=== PATIENT | female | born 1940 | race Caucasian/White ===

== ENCOUNTER 2016-09-13 14:00 | Inpatient (IN) | payer MEDICARE, OTHER ==
[2016-09-13] MEDS: ENOXAPARIN SODIUM 30 MG/0.3 ML DISP.SYRIN SQ SCH (16:19)
--- NOTE | 2016-09-13 16:19 | History and Physical Report ---
History of Present Illnes - History of Present Illness Reason for Visit: gait disturbance History of Present Illness: 76-year-old white female who recently underwent a total knee replacement. Patient was admitted to this institution for further services. Patient was transfused 1 unit of packed RBCs surgery. Patient denies any other intraoperative or postoperative complications. Patient hypertension and diabetes mellitus has been stable. Rheumatoid arthritis. Has been causing her some discomfort but has been stable. 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 Alcohol: None Drugs: None Lives: With Family Domestic Violence: Negative - Health Maintenance Health Maintenance: Influenza Vaccine, Pneumococcal Vaccine, Other (Zostivax) Pneumonia Vaccine: Yes Resuscitation Status: Resusciation Status Resuscitation Status No Prolong Resuscitation,Full Code - Unable to Obtain History Unable to Obtain: No Review of Systems - Review of Systems Constitutional: negative: Fever, Chills, Sweats Eyes: negative: pain, vision change ENT: negative: Ear Pain, Ear Discharge, Nose Pain, Nose Discharge, Nose Congestion, Mouth Pain, Mouth Swelling, Throat Pain Respiratory: negative: Cough, Dry, Shortness of Breath, Hemoptysis, SOB with Excertion, Pleuritic Pain, Sputum, Wheezing Cardiovascular: negative: Chest Pain, Palpitations, Orthopnea, Paroxysmal Noc. Dyspnea, Edema, Light Headedness Gastrointestinal: negative: Nausea, Vomiting, Abdominal Pain, Diarrhea, Constipation, Melena, Hematochezia Genitourinary: negative: Dysuria, Frequency, Incontinence, Hematuria Musculoskeletal: Leg Pain. negative: Back Pain, Foot Pain Skin: negative: Rash, Lesions Neurological: negative: Weakness, Numbness, Incoordination, Change in Speech, Confusion, Seizures - Medications/Allergies Allergies/Adverse Reactions: Allergies Allergy/AdvReac Type Severity Reaction Status Date / Time levofloxacin [From Levaquin] Allergy Rash Verified 09/30/16 08:31 tramadol AdvReac Vomiting Verified 09/30/16 08:31 Current Inpatient Medications: Current Inpatient Medications Amlodipine Besylate (Norvasc) 5 mg PO DAILY [facility] Enoxaparin Sodium (Lovenox) 30 mg SQ QD [facility] Stop: 09/26/16 17:01 Folic Acid (Folvite) 1 mg PO DAILY [facility] Hydroxychloroquine Sulfate (Plaquenil) 200 mg PO BID [facility] Metformin HCl (Glucophage) 500 mg PO DAILY [facility] Metoprolol Tartrate (Lopressor) 25 mg PO BID [facility] Miscellaneous (Chem Sticks) 1 each CHEMQID [facility] Last Admin: 09/13/16 16:18 Dose: 1 each Pantoprazole Sodium (Protonix) 40 mg PO 0700 [facility] Prednisone (Deltasone) 5 mg PO HS [facility] Prednisone (Deltasone) 2.5 mg PO DAILY [facility] Exam - Exam General: Alert, Oriented to Person, Oriented to Place, Oriented to Time, Cooperative, Mild distress HEENT: Atraumatic, PERRLA, Nose Mucous membr. moist/[place], Dentition Normal, Hearing Grossly Normal Neck: Normal Range of Motion. No: Lymphadenopathy Carotids: WNL Thyroid: WNL Lungs: Clear to auscultation, Normal air movement, Speaks full Sentences. No: Respiratory Distress, Wheezes, Rales, Rhonchi, Stridor Cardiovascular: Regular rate, Normal S1, Normal S2, No murmurs. No: Gallops, Rubs, Murmur Abdomen: Normal bowel sounds, Soft, No tenderness, No hepatospenomegaly, No masses. No: Distended Integumentary: Normal, [place], Warm, Dry Extremities: No clubbing, No cyanosis, Other (some edemal tot he lrigh knee) Neurological: Normal speech, Strength Equal Bilat, Normal tone, Sensation intact , Cranial nerves 3-12 NL, Reflexes 2+. No: Normal gait Psych/Mental Status: Mental status NL, Mood NL, Appropriate Affect, Intact Judgment Assessment/Plan - Assessment/Plan (1) Gait disturbance Status: Acute Assessment: PT and OT consultation (2) Essential hypertension Status: Chronic Assessment: continue home meds and monitor (3) Rheumatoid arthritis Status: Chronic Assessment: continue home meds and monitor (4) Sleep apnea Status: Chronic Assessment: continue home Cpap and monitor (5) Diabetes type 2 with atherosclerosis of arteries of extremities Status: Acute (6) Type 2 diabetes mellitus Status: Chronic Qualifiers: Diabetes mellitus complication status: without complication Diabetes mellitus intermediate card tender insulin use: without mcc use Qualified Code(s): E11.9 - Type 2 diabetes mellitus without complications Assessment: will continue with home medications VTE Assessment - RISK FACTOR SCORE VTE RISK FACTOR SCORES: AGE OVER 60 YEARS, ANTICIPATED BED CONFINEMENT OR IMMOBILIZATION > 24 HOURS, ELECTIVE KNEE OR HIP ARTHROPLASTY - RISK VTE HIGH RISK: SCORE OF 3-4 (RISK PROXIMAL DVT 4-8%) PROPHYLAXIS NEEDED
[2016-09-13] MEDS ORDERED: HYDROcodone /APAP 5/325 1 EACH TABLET PO SCH (17:00)
[2016-09-13 19:35] VITALS: BMI 34.7
[2016-09-13] MEDS: predniSONE 10 MG TABLET PO SCH (20:09)
[2016-09-13] MEDS: METOPROLOL TARTRATE 50 MG TABLET PO SCH (20:09)
[2016-09-13] MEDS: HYDROcodone /APAP 5/325 1 EACH TABLET PO SCH (20:43)
[2016-09-13] MEDS: HYDROXYCHLOROQUINE SULFATE 200 MG TABLET PO SCH (21:00)
[2016-09-14] MEDS: HYDROcodone /APAP 5/325 1 EACH TABLET PO SCH ×6 (00:39→20:44)
[2016-09-14] MEDS: PANTOPRAZOLE SODIUM 40 MG TABLET PO SCH (06:11)
[2016-09-14] MEDS: predniSONE 1 MG TABLET PO SCH (08:40)
[2016-09-14] MEDS: FOLIC ACID 1 MG TABLET PO SCH (08:41)
[2016-09-14] MEDS: METOPROLOL TARTRATE 50 MG TABLET PO SCH ×2 (08:42→20:47)
[2016-09-14] MEDS: amLODIPine BESYLATE 5 MG TABLET PO SCH (08:43)
[2016-09-14] MEDS: HYDROXYCHLOROQUINE SULFATE 200 MG TABLET PO SCH ×2 (10:25→20:48)
[2016-09-14] MEDS: ENOXAPARIN SODIUM 30 MG/0.3 ML DISP.SYRIN SQ SCH (17:34)
[2016-09-14] MEDS: predniSONE 10 MG TABLET PO SCH (20:45)
[2016-09-15] MEDS: HYDROcodone /APAP 5/325 1 EACH TABLET PO SCH ×6 (03:25→21:34)
[2016-09-15] MEDS: PANTOPRAZOLE SODIUM 40 MG TABLET PO SCH (06:15)
[2016-09-15 07:32] LABS: BASOPHILS % 0.2 (0.0-1.5); LYMPHOCYTES # 0.8 # k/uL (0.6-4.0); MEAN CORPUSCULAR HEMOGLOBIN 26.2 pg (28.0-34.0); MONOCYTES # 0.5 # k/uL (0.0-0.9); MONOCYTES % 4.9 % (0.0-11.0); NEUTROPHILS # 7.6 # k/uL (1.4-7.7)
[2016-09-15 07:56] LABS: eGFR (African) > 60; eGFR (Non-African) > 60
[2016-09-15] MEDS: predniSONE 1 MG TABLET PO SCH (08:33)
[2016-09-15] MEDS: amLODIPine BESYLATE 5 MG TABLET PO SCH (08:34)
[2016-09-15] MEDS: FOLIC ACID 1 MG TABLET PO SCH (08:34)
[2016-09-15] MEDS: METOPROLOL TARTRATE 50 MG TABLET PO SCH ×2 (08:34→21:32)
[2016-09-15] MEDS: HYDROXYCHLOROQUINE SULFATE 200 MG TABLET PO SCH ×2 (08:35→21:33)
[2016-09-15] MEDS: ENOXAPARIN SODIUM 30 MG/0.3 ML DISP.SYRIN SQ SCH (17:16)
[2016-09-15] MEDS: predniSONE 10 MG TABLET PO SCH (21:30)
[2016-09-16] MEDS: HYDROcodone /APAP 5/325 1 EACH TABLET PO SCH ×6 (02:19→19:48)
[2016-09-16] MEDS: PANTOPRAZOLE SODIUM 40 MG TABLET PO SCH (06:17)
[2016-09-16] MEDS: predniSONE 1 MG TABLET PO SCH (08:55)
[2016-09-16] MEDS: amLODIPine BESYLATE 5 MG TABLET PO SCH (08:57)
[2016-09-16] MEDS: HYDROXYCHLOROQUINE SULFATE 200 MG TABLET PO SCH ×2 (08:57→19:48)
[2016-09-16] MEDS: FOLIC ACID 1 MG TABLET PO SCH (08:57)
[2016-09-16] MEDS: METOPROLOL TARTRATE 50 MG TABLET PO SCH ×2 (08:57→19:47)
[2016-09-16] MEDS: ENOXAPARIN SODIUM 30 MG/0.3 ML DISP.SYRIN SQ SCH (16:33)
[2016-09-16] MEDS: predniSONE 10 MG TABLET PO SCH (19:46)
[2016-09-17] MEDS: HYDROcodone /APAP 5/325 1 EACH TABLET PO SCH ×6 (00:13→20:02)
[2016-09-17] MEDS: PANTOPRAZOLE SODIUM 40 MG TABLET PO SCH (06:23)
[2016-09-17] MEDS: METOPROLOL TARTRATE 50 MG TABLET PO SCH ×2 (09:41→20:02)
[2016-09-17] MEDS: amLODIPine BESYLATE 5 MG TABLET PO SCH (09:43)
[2016-09-17] MEDS: HYDROXYCHLOROQUINE SULFATE 200 MG TABLET PO SCH ×2 (09:43→20:02)
[2016-09-17] MEDS: FOLIC ACID 1 MG TABLET PO SCH (09:43)
[2016-09-17] MEDS: predniSONE 1 MG TABLET PO SCH (09:48)
[2016-09-17] MEDS: ENOXAPARIN SODIUM 30 MG/0.3 ML DISP.SYRIN SQ SCH (17:22)
[2016-09-17] MEDS: predniSONE 10 MG TABLET PO SCH (20:01)
[2016-09-18] MEDS: HYDROcodone /APAP 5/325 1 EACH TABLET PO SCH ×6 (01:16→20:30)
[2016-09-18] MEDS: PANTOPRAZOLE SODIUM 40 MG TABLET PO SCH (05:55)
[2016-09-18] MEDS: predniSONE 1 MG TABLET PO SCH (08:35)
[2016-09-18] MEDS: FOLIC ACID 1 MG TABLET PO SCH (08:36)
[2016-09-18] MEDS: METOPROLOL TARTRATE 50 MG TABLET PO SCH ×2 (08:36→20:29)
[2016-09-18] MEDS: HYDROXYCHLOROQUINE SULFATE 200 MG TABLET PO SCH ×2 (08:37→20:30)
[2016-09-18] MEDS: amLODIPine BESYLATE 5 MG TABLET PO SCH (08:37)
[2016-09-18] MEDS: ENOXAPARIN SODIUM 30 MG/0.3 ML DISP.SYRIN SQ SCH (17:11)
[2016-09-18] MEDS: predniSONE 10 MG TABLET PO SCH (20:29)
[2016-09-19] MEDS: HYDROcodone /APAP 5/325 1 EACH TABLET PO SCH ×6 (00:05→20:50)
[2016-09-19] MEDS: PANTOPRAZOLE SODIUM 40 MG TABLET PO SCH (05:16)
[2016-09-19] MEDS: predniSONE 1 MG TABLET PO SCH (08:40)
[2016-09-19] MEDS: METOPROLOL TARTRATE 50 MG TABLET PO SCH ×2 (08:41→20:49)
[2016-09-19] MEDS: FOLIC ACID 1 MG TABLET PO SCH (08:41)
[2016-09-19] MEDS: HYDROXYCHLOROQUINE SULFATE 200 MG TABLET PO SCH ×2 (08:44→20:50)
[2016-09-19] MEDS: amLODIPine BESYLATE 5 MG TABLET PO SCH (08:44)
[2016-09-19] MEDS: ENOXAPARIN SODIUM 30 MG/0.3 ML DISP.SYRIN SQ SCH (16:49)
[2016-09-19] MEDS: predniSONE 10 MG TABLET PO SCH (20:49)
[2016-09-20] MEDS: HYDROcodone /APAP 5/325 1 EACH TABLET PO SCH ×6 (01:01→20:44)
[2016-09-20] MEDS: PANTOPRAZOLE SODIUM 40 MG TABLET PO SCH (05:22)
[2016-09-20] MEDS: amLODIPine BESYLATE 5 MG TABLET PO SCH (07:51)
[2016-09-20] MEDS: FOLIC ACID 1 MG TABLET PO SCH (07:51)
[2016-09-20] MEDS: HYDROXYCHLOROQUINE SULFATE 200 MG TABLET PO SCH ×2 (07:51→22:44)
[2016-09-20] MEDS: METOPROLOL TARTRATE 50 MG TABLET PO SCH ×2 (07:51→20:43)
[2016-09-20] MEDS: predniSONE 1 MG TABLET PO SCH (07:51)
[2016-09-20] MEDS: ENOXAPARIN SODIUM 30 MG/0.3 ML DISP.SYRIN SQ SCH (16:45)
--- NOTE | 2016-09-20 20:31 | Inpatient Progress Note ---
Subjective - Required Recertification Statement I anticipate X number of days because-include discharge plan: 7 days - Review of Systems Events since last encounter: Patient has developed some right hip pain over the last 2 days. Pain with movement, feels muscular in nature. If she sits still pain is better. Knee seems to be doing well at this time. BM have been OK. General: Appetite. Denies: Chills Objective - Exam Vitals and I&O: Vital Signs Temp 98.5 F 09/20/16 09:00 Pulse 100 H 09/20/16 09:00 Resp 20 09/20/16 09:00 BP 149/74 09/20/16 09:00 Pulse Ox 97 09/20/16 09:00 Intake & Output 09/19/16 09/20/16 09/20/16 23:59 11:59 23:59 Intake Total 440 360 480 Balance 440 360 480 Intake: Oral 440 360 480 Other: Voiding Method Toilet Toilet # Voids 1 # Bowel Movements 0 General: Alert, Oriented to Person, Oriented to Place, Oriented to Time, Cooperative Lungs: Clear to auscultation, Normal air movement, Speaks full Sentences. No: Wheezes, Rales, Rhonchi Cardiovascular: Regular rate, Normal S1, Normal S2 Abdomen: Normal bowel sounds, Soft, No tenderness, No hepatospenomegaly, No masses Extremities: Other (tenderness to palpation over the right lateral chest area) Skin: Normal, [place], Warm Neurological: Normal gait, Normal speech, Strength Equal Bilat Psych/Mental Status: Mental status NL, Mood NL, Intact Judgment - Results Results: Laboratory Results WBC 9.30 K/ul (4.00-12.00) 09/15/16 06:00 RBC 3.21 M/ul (3.90-5.20) L 09/15/16 06:00 Hgb 8.4 g/dL (12.0-16.0) L 09/15/16 06:00 Hct 28.1 % (34.5-46.5) L 09/15/16 06:00 MCV 87.6 fl (80.0-100.0) 09/15/16 06:00 MCH 26.2 pg (28.0-34.0) L 09/15/16 06:00 MCHC 29.9 g/dL (30.0-36.0) L 09/15/16 06:00 RDW 14.2 % (11.3-14.3) 09/15/16 06:00 Plt Count 208 K/mm3 (130-400) 09/15/16 06:00 Neut % (Auto) 81.8 % (39.0-79.0) H 09/15/16 06:00 Lymph % (Auto) 8.6 % (16.0-50.0) L 09/15/16 06:00 [place] % (Auto) 4.9 % (0.0-11.0) 09/15/16 06:00 Eos % (Auto) 2.0 % (0.0-6.8) 09/15/16 06:00 Baso % (Auto) 0.2 (0.0-1.5) 09/15/16 06:00 Neut # 7.6 # k/uL (1.4-7.7) 09/15/16 06:00 Lymph # 0.8 # k/uL (0.6-4.0) 09/15/16 06:00 [place] # 0.5 # k/uL (0.0-0.9) 09/15/16 06:00 Eos # 0.2 # k/uL (0.0-0.6) 09/15/16 06:00 Baso # 0.0 # k/uL (0.0-0.5) 09/15/16 06:00 Reactive Lymphs % 2.6 % (0.0-5.0) 09/15/16 06:00 Reactive Lymphs # 0.2 # k/uL (0.0-0.8) 09/15/16 06:00 Sodium 135 mmol/L (136-145) L 09/15/16 06:50 Potassium 4.7 mmol/L (3.5-5.0) 09/15/16 06:50 Chloride 101 mmol/L (98-110) 09/15/16 06:50 Carbon Dioxide 33 mmol/L (20-32) H 09/15/16 06:50 BUN 30 mg/dL (10-26) H 09/15/16 06:50 Creatinine 0.8 mg/dL (0.4-1.5) 09/15/16 06:50 Estimated Creat Clear 106 09/15/16 06:50 Est GFR ( Amer) > 60 (60-) 09/15/16 06:50 Est GFR (Non-Af Amer) > 60 (60-) 09/15/16 06:50 Glucose 148 mg/dL (70-99) H 09/15/16 06:50 Calcium 8.9 mg/dL (8.5-10.5) 09/15/16 06:50 Total Bilirubin 0.5 mg/dL (0.2-1.2) 09/15/16 06:50 AST 13 U/L (0-41) 09/15/16 06:50 ALT 9 U/L (0-45) 09/15/16 06:50 Alkaline Phosphatase 73 U/L (46-116) 09/15/16 06:50 Total Protein 5.4 g/dL (6.0-8.5) L 09/15/16 06:50 Albumin 3.3 g/dL (3.0-5.5) 09/15/16 06:50 Assessment/Plan - Assessment/Plan (1) Gait disturbance Status: Acute Current Visit: Yes Assessment: Was doing better until last two days. Will try heat to the area. (2) Essential hypertension Status: Chronic Current Visit: No Assessment: stable (3) Rheumatoid arthritis Status: Chronic Current Visit: Yes Assessment: stable, may be getting aggravated due to ambulation with knee. Patient has been off her meds per ortho request. (4) Sleep apnea Status: Chronic Current Visit: No Assessment: stable
--- NOTE | 2016-09-20 20:36 | Inpatient Progress Note ---
Subjective - Required Recertification Statement I anticipate X number of days because-include discharge plan: 2 weeks - Review of Systems Events since last encounter: Patient has been doing well and voices no complaints at this time. BM good. General: Other Pulmonary: Denies: Dyspnea, Cough Cardiovascular: Denies: Chest Pain Gastrointestinal: Denies: Nausea, Vomiting, Abdominal Pain, Constipation Objective - Exam Vitals and I&O: Vital Signs Temp 98.5 F 09/20/16 09:00 Pulse 100 H 09/20/16 09:00 Resp 20 09/20/16 09:00 BP 149/74 09/20/16 09:00 Pulse Ox 97 09/20/16 09:00 Intake & Output 09/19/16 09/20/16 09/20/16 23:59 11:59 23:59 Intake Total 440 360 480 Balance 440 360 480 Intake: Oral 440 360 480 Other: Voiding Method Toilet Toilet # Voids 1 # Bowel Movements 0 General: Alert, Oriented to Person, Oriented to Place, Oriented to Time, Cooperative Lungs: Clear to auscultation, Normal air movement, Speaks full Sentences. No: Wheezes, Rales, Rhonchi Cardiovascular: Regular rate, Normal S1, Normal S2, No murmurs Abdomen: Normal bowel sounds, Soft, No tenderness Extremities: No clubbing, No cyanosis, No edema, Other (right knee looks good.) Skin: Normal, [place], Warm, Dry Psych/Mental Status: Mental status NL, Mood NL, Appropriate Affect - Results Results: Laboratory Results WBC 9.30 K/ul (4.00-12.00) 09/15/16 06:00 RBC 3.21 M/ul (3.90-5.20) L 09/15/16 06:00 Hgb 8.4 g/dL (12.0-16.0) L 09/15/16 06:00 Hct 28.1 % (34.5-46.5) L 09/15/16 06:00 MCV 87.6 fl (80.0-100.0) 09/15/16 06:00 MCH 26.2 pg (28.0-34.0) L 09/15/16 06:00 MCHC 29.9 g/dL (30.0-36.0) L 09/15/16 06:00 RDW 14.2 % (11.3-14.3) 09/15/16 06:00 Plt Count 208 K/mm3 (130-400) 09/15/16 06:00 Neut % (Auto) 81.8 % (39.0-79.0) H 09/15/16 06:00 Lymph % (Auto) 8.6 % (16.0-50.0) L 09/15/16 06:00 [place] % (Auto) 4.9 % (0.0-11.0) 09/15/16 06:00 Eos % (Auto) 2.0 % (0.0-6.8) 09/15/16 06:00 Baso % (Auto) 0.2 (0.0-1.5) 09/15/16 06:00 Neut # 7.6 # k/uL (1.4-7.7) 09/15/16 06:00 Lymph # 0.8 # k/uL (0.6-4.0) 09/15/16 06:00 [place] # 0.5 # k/uL (0.0-0.9) 09/15/16 06:00 Eos # 0.2 # k/uL (0.0-0.6) 09/15/16 06:00 Baso # 0.0 # k/uL (0.0-0.5) 09/15/16 06:00 Reactive Lymphs % 2.6 % (0.0-5.0) 09/15/16 06:00 Reactive Lymphs # 0.2 # k/uL (0.0-0.8) 09/15/16 06:00 Sodium 135 mmol/L (136-145) L 09/15/16 06:50 Potassium 4.7 mmol/L (3.5-5.0) 09/15/16 06:50 Chloride 101 mmol/L (98-110) 09/15/16 06:50 Carbon Dioxide 33 mmol/L (20-32) H 09/15/16 06:50 BUN 30 mg/dL (10-26) H 09/15/16 06:50 Creatinine 0.8 mg/dL (0.4-1.5) 09/15/16 06:50 Estimated Creat Clear 106 09/15/16 06:50 Est GFR ( Amer) > 60 (60-) 09/15/16 06:50 Est GFR (Non-Af Amer) > 60 (60-) 09/15/16 06:50 Glucose 148 mg/dL (70-99) H 09/15/16 06:50 Calcium 8.9 mg/dL (8.5-10.5) 09/15/16 06:50 Total Bilirubin 0.5 mg/dL (0.2-1.2) 09/15/16 06:50 AST 13 U/L (0-41) 09/15/16 06:50 ALT 9 U/L (0-45) 09/15/16 06:50 Alkaline Phosphatase 73 U/L (46-116) 09/15/16 06:50 Total Protein 5.4 g/dL (6.0-8.5) L 09/15/16 06:50 Albumin 3.3 g/dL (3.0-5.5) 09/15/16 06:50 Assessment/Plan - Assessment/Plan (1) Gait disturbance Status: Acute Current Visit: Yes (2) Essential hypertension Status: Chronic Current Visit: No (3) Rheumatoid arthritis Status: Chronic Current Visit: Yes (4) Sleep apnea Status: Chronic Current Visit: No
[2016-09-20] MEDS: predniSONE 10 MG TABLET PO SCH (20:43)
[2016-09-21] MEDS: HYDROcodone /APAP 5/325 1 EACH TABLET PO SCH ×6 (00:55→21:00)
[2016-09-21] MEDS: PANTOPRAZOLE SODIUM 40 MG TABLET PO SCH (05:35)
[2016-09-21] MEDS: predniSONE 1 MG TABLET PO SCH (08:21)
[2016-09-21] MEDS: HYDROXYCHLOROQUINE SULFATE 200 MG TABLET PO SCH ×2 (08:22→21:00)
[2016-09-21] MEDS: METOPROLOL TARTRATE 50 MG TABLET PO SCH ×2 (08:22→21:32)
[2016-09-21] MEDS: FOLIC ACID 1 MG TABLET PO SCH (08:22)
[2016-09-21] MEDS: amLODIPine BESYLATE 5 MG TABLET PO SCH (08:22)
[2016-09-21] MEDS: ENOXAPARIN SODIUM 30 MG/0.3 ML DISP.SYRIN SQ SCH (16:56)
[2016-09-21] MEDS: predniSONE 10 MG TABLET PO SCH (21:00)
[2016-09-22] MEDS: HYDROcodone /APAP 5/325 1 EACH TABLET PO SCH ×6 (00:59→21:04)
[2016-09-22] MEDS: PANTOPRAZOLE SODIUM 40 MG TABLET PO SCH (05:43)
[2016-09-22] MEDS: amLODIPine BESYLATE 5 MG TABLET PO SCH (10:23)
[2016-09-22] MEDS: METOPROLOL TARTRATE 50 MG TABLET PO SCH ×2 (10:24→21:03)
[2016-09-22] MEDS: FOLIC ACID 1 MG TABLET PO SCH (10:25)
[2016-09-22] MEDS: predniSONE 1 MG TABLET PO SCH (10:38)
[2016-09-22] MEDS: HYDROXYCHLOROQUINE SULFATE 200 MG TABLET PO SCH ×2 (12:59→21:04)
[2016-09-22] MEDS: ENOXAPARIN SODIUM 30 MG/0.3 ML DISP.SYRIN SQ SCH (16:38)
[2016-09-22] MEDS: predniSONE 10 MG TABLET PO SCH (21:02)
[2016-09-23] MEDS: HYDROcodone /APAP 5/325 1 EACH TABLET PO SCH ×6 (01:19→21:05)
[2016-09-23] MEDS: PANTOPRAZOLE SODIUM 40 MG TABLET PO SCH (06:22)
[2016-09-23] MEDS: predniSONE 1 MG TABLET PO SCH (10:06)
[2016-09-23] MEDS: METOPROLOL TARTRATE 50 MG TABLET PO SCH ×2 (10:07→21:06)
[2016-09-23] MEDS: FOLIC ACID 1 MG TABLET PO SCH (10:07)
[2016-09-23] MEDS: amLODIPine BESYLATE 5 MG TABLET PO SCH (10:08)
[2016-09-23] MEDS: HYDROXYCHLOROQUINE SULFATE 200 MG TABLET PO SCH ×2 (11:09→21:06)
[2016-09-23] MEDS: ENOXAPARIN SODIUM 30 MG/0.3 ML DISP.SYRIN SQ SCH (16:30)
[2016-09-23] MEDS: predniSONE 10 MG TABLET PO SCH (21:06)
[2016-09-24] MEDS: HYDROcodone /APAP 5/325 1 EACH TABLET PO SCH ×6 (01:11→20:48)
[2016-09-24] MEDS: PANTOPRAZOLE SODIUM 40 MG TABLET PO SCH (05:26)
[2016-09-24] MEDS: predniSONE 1 MG TABLET PO SCH (09:37)
[2016-09-24] MEDS: FOLIC ACID 1 MG TABLET PO SCH (09:37)
[2016-09-24] MEDS: METOPROLOL TARTRATE 50 MG TABLET PO SCH ×2 (09:38→20:47)
[2016-09-24] MEDS: HYDROXYCHLOROQUINE SULFATE 200 MG TABLET PO SCH ×2 (09:39→20:46)
[2016-09-24] MEDS: amLODIPine BESYLATE 5 MG TABLET PO SCH (09:39)
[2016-09-24] MEDS: ONDANSETRON HCL 4 MG TAB.RAPDIS PO PRN (13:02)
[2016-09-24] MEDS: ENOXAPARIN SODIUM 30 MG/0.3 ML DISP.SYRIN SQ SCH (17:40)
[2016-09-24] MEDS: predniSONE 10 MG TABLET PO SCH (20:48)
[2016-09-25] MEDS: HYDROcodone /APAP 5/325 1 EACH TABLET PO SCH ×6 (01:00→21:45)
[2016-09-25] MEDS: PANTOPRAZOLE SODIUM 40 MG TABLET PO SCH (05:51)
[2016-09-25] MEDS: ONDANSETRON HCL 4 MG TAB.RAPDIS PO PRN ×2 (08:45→14:13)
[2016-09-25] MEDS: predniSONE 1 MG TABLET PO SCH (09:16)
[2016-09-25] MEDS: FOLIC ACID 1 MG TABLET PO SCH (09:17)
[2016-09-25] MEDS: METOPROLOL TARTRATE 50 MG TABLET PO SCH ×2 (09:17→21:41)
[2016-09-25] MEDS: HYDROXYCHLOROQUINE SULFATE 200 MG TABLET PO SCH ×2 (09:18→21:40)
[2016-09-25] MEDS: amLODIPine BESYLATE 5 MG TABLET PO SCH (09:18)
[2016-09-25] MEDS: ENOXAPARIN SODIUM 30 MG/0.3 ML DISP.SYRIN SQ SCH (17:20)
[2016-09-25] MEDS: predniSONE 10 MG TABLET PO SCH (21:40)
[2016-09-26] MEDS: HYDROcodone /APAP 5/325 1 EACH TABLET PO SCH ×3 (01:05→09:15)
[2016-09-26] MEDS: PANTOPRAZOLE SODIUM 40 MG TABLET PO SCH (05:27)
[2016-09-26] MEDS: predniSONE 1 MG TABLET PO SCH ×2 (09:11→09:12)
[2016-09-26] MEDS: FOLIC ACID 1 MG TABLET PO SCH (09:12)
[2016-09-26] MEDS: amLODIPine BESYLATE 5 MG TABLET PO SCH (09:13)
[2016-09-26] MEDS: METOPROLOL TARTRATE 50 MG TABLET PO SCH ×2 (09:13→20:02)
[2016-09-26] MEDS: HYDROXYCHLOROQUINE SULFATE 200 MG TABLET PO SCH ×2 (09:15→20:01)
[2016-09-26] MEDS: HYDROcodone /APAP 5/325 1 EACH TABLET PO PRN ×3 (12:47→23:41)
[2016-09-26] MEDS: ENOXAPARIN SODIUM 30 MG/0.3 ML DISP.SYRIN SQ SCH (17:52)
[2016-09-26] MEDS: predniSONE 10 MG TABLET PO SCH (20:02)
[2016-09-27] MEDS: HYDROcodone /APAP 5/325 1 EACH TABLET PO PRN ×3 (05:20→15:28)
[2016-09-27] MEDS: PANTOPRAZOLE SODIUM 40 MG TABLET PO SCH (05:20)
[2016-09-27] MEDS: predniSONE 1 MG TABLET PO SCH (08:25)
[2016-09-27] MEDS: METOPROLOL TARTRATE 50 MG TABLET PO SCH ×2 (08:26→20:21)
[2016-09-27] MEDS: FOLIC ACID 1 MG TABLET PO SCH (08:26)
[2016-09-27] MEDS: HYDROXYCHLOROQUINE SULFATE 200 MG TABLET PO SCH ×2 (08:27→20:22)
[2016-09-27] MEDS: amLODIPine BESYLATE 5 MG TABLET PO SCH (08:27)
[2016-09-27] MEDS: predniSONE 10 MG TABLET PO SCH (20:21)
[2016-09-28] MEDS: PANTOPRAZOLE SODIUM 40 MG TABLET PO SCH (05:41)
[2016-09-28] MEDS: predniSONE 1 MG TABLET PO SCH (08:54)
[2016-09-28] MEDS: FOLIC ACID 1 MG TABLET PO SCH (08:57)
[2016-09-28] MEDS: METOPROLOL TARTRATE 50 MG TABLET PO SCH ×2 (08:58→20:38)
[2016-09-28] MEDS: amLODIPine BESYLATE 5 MG TABLET PO SCH (09:00)
[2016-09-28] MEDS: HYDROXYCHLOROQUINE SULFATE 200 MG TABLET PO SCH ×2 (09:00→20:39)
[2016-09-28] MEDS: HYDROcodone /APAP 5/325 1 EACH TABLET PO PRN ×5 (09:01→22:59)
[2016-09-28] MEDS: predniSONE 10 MG TABLET PO SCH (20:37)
[2016-09-29] MEDS: PANTOPRAZOLE SODIUM 40 MG TABLET PO SCH (05:32)
[2016-09-29] MEDS: HYDROcodone /APAP 5/325 1 EACH TABLET PO PRN ×2 (05:35→11:48)
[2016-09-29] MEDS: METOPROLOL TARTRATE 50 MG TABLET PO SCH (09:00)
[2016-09-29] MEDS: HYDROXYCHLOROQUINE SULFATE 200 MG TABLET PO SCH (09:00)
[2016-09-29] MEDS: amLODIPine BESYLATE 5 MG TABLET PO SCH (09:00)
[2016-09-29] MEDS: FOLIC ACID 1 MG TABLET PO SCH (09:01)
[2016-09-29] MEDS: predniSONE 1 MG TABLET PO SCH (09:03)
--- NOTE | 2016-09-29 09:24 | Discharge Summary ---
Discharge Summary - Discharge Sumary History of Present Illness: 76-year-old white female who recently underwent a total knee replacement. Patient was admitted to this institution for further services. Patient was transfused 1 unit of packed RBCs surgery. Patient denies any other intraoperative or postoperative complications. Patient hypertension and diabetes mellitus has been stable. Rheumatoid arthritis. Has been causing her some discomfort but has been stable. Condition at Discharge: Stable Home Medications: Ambulatory Orders Medication Instructions Recorded Cyanocobalamin [Vitamin B-12] 1,000 mcg SUBCUT NOW 09/30/16 Metformin HCl [Glucophage] 09/30/16 Metoprolol Succinate [Toprol XL] 25 mg PO BID 09/30/16 Omeprazole 09/30/16 Prednisone [Deltasone] 2.5 mg PO AM 09/30/16 Prednisone [Deltasone] 5 mg PO HS 09/30/16 amLODIPine BESYLATE [Norvasc] 5 mg PO 0900 09/30/16 Ferrous Sulfate [Feosol] 325 mg PO [id number] #60 tablet. 10/05/16 Consultations this Visit: None Procedures this Visit: None Allergies/Adverse Reactions: Allergies Allergy/AdvReac Type Severity Reaction Status Date / Time levofloxacin [From Levaquin] Allergy Rash Verified 09/30/16 08:31 tramadol AdvReac Vomiting Verified 09/30/16 08:31 Discharge Summary: Patient was started on physical and occupational therapy. Patient did participate well with the therapy programs. Patient ambulation and transferring abilities did improve during her hospital stay. Patient was also started on passive range of motion which she tolerated well. Patient continued to have some some pain that required hydrocodone to manage. Patient's rheumatoid arthritis remained stable during the hospital stay. Patient's hypertension remained stable on home medications. Patient was eating well. Patient did not have any constipation problems. At the time of discharge was felt that patient could be managed at home with home health therapy. Patient was discharged in stable condition. - Final Diagnosis (1) Gait disturbance Problems: Patient participated will in the pt and OT. Patient's ability to ambulate and transfer improved. ROM of the knee improved with passive ROM. Patient did continue to have some pain with ambulation. (2) Essential hypertension Problems: Stable on home meds. (3) Rheumatoid arthritis Problems: stable. will stay off chloraquine for a short period of time of time. (4) Sleep apnea Problems: stable on C-pap
[2016-09-29 15:48] VITALS: BP 126/48
== END 2016-09-29 12:20 | DRG 93 ==
LOC: SOUTH 14:00
PROVIDERS: ADMIT Family Medicine; ATTEND Family Medicine
DX: R26.89 Other abnormalities of gait and mobility (principal); M06.9 Rheumatoid arthritis, unspecified; I10 Essential (primary) hypertension; J44.9 Chronic obstructive pulmonary disease, unspecified; G47.30 Sleep apnea, unspecified
CPT/HCPCS: 36415; 80053; 85025; J1650; A9270; A9270-GY; J7512

== ENCOUNTER 2016-09-30 08:21 | Inpatient (IN) | payer MEDICARE, OTHER ==
--- NOTE | 2016-09-30 08:27 | ED Physician Documentation ---
Lower Extremity Problem - HISTORIAN Historian: patient - HPI Chief Complaint: Lower Extremity Problem Location of Injury: L hip Onset: hours Timing: still present, persistent since (last noc) Recent Injury: No Where: home Severity: severe Quality: pain, tenderness Exacerbated By: walking, movement Relieved By: rest Associated Symptoms: denies: rapid heart rate Further Comments: yes (76yo white female who underwent a left TKR about 3 weeks ago. Was in SNF for rehab and was discharged home yesterday. Patient did well until early this AM when she developed some some severe left hip pain that started while she was in bed. Has taken several pain medications without improvement. Pain seems to be worse with any movement. Patient denies nay fever or chills. Denies any recent injury. Has had some arthritis in the hip previously. Has a history of RA. Patient is unable to stand or ambulateat this time.) - ROS CONST: no problems. denies: recent illness, fever MS/SKIN/LYMPH: joint pain (left knee), leg swelling (minimal). denies: none, calf pain CVS/RESP: none GI/: none NERUO/PSYCH: denies: headache - PAST HX Past History: other (OA, RA, diabetes type 2, HTN, sleep apnea) PE Risk Factors: leg swelling Surgeries/Procedures: knee surgery (left), cholecystectomy, hysterectomy, other (shoulder replacement, sinus surgery, ) Allergies/Adverse Reactions: Allergies Allergy/AdvReac Type Severity Reaction Status Date / Time levofloxacin [From Levaquin] Allergy Rash Verified 09/30/16 08:31 tramadol AdvReac Vomiting Verified 09/30/16 08:31 Home Medications: Ambulatory Orders Medication Instructions Recorded Cyanocobalamin [Vitamin B-12] 1,000 mcg SUBCUT NOW 09/30/16 Folic Acid [Folic Acid] 09/30/16 Metformin HCl [Glucophage] 09/30/16 Metoprolol Succinate [Toprol Xl] 25 mg PO BID 09/30/16 Omeprazole [Omeprazole] 09/30/16 Prednisone [Deltasone] 2.5 mg PO AM 09/30/16 Prednisone [Deltasone] 5 mg PO HS 09/30/16 amLODIPine BESYLATE [Norvasc] 5 mg PO 0900 09/30/16 - SOCIAL HX Smoking History: non-smoker Alcohol Use: none Drug Use: none - FAMILY HX Family History: no significant history - VITAL SIGNS Vital Signs: Vital Signs Temp Pulse Resp BP Pulse Ox 98.3 F 84 18 136/78 99 09/30/16 10:21 09/30/16 10:21 09/30/16 10:21 09/30/16 10:21 09/30/16 10:21 - REVIEWED ASSESSMENTS Nursing Assessment Reviewed: Yes Vitals Reviewed: Yes Progress - Progress Progress: 09:16 Pain improved to 5/10, still hurts with movement ED Results Lab/Radiology - Lab Results Lab Results: Lab Results 09/30/16 09/30/16 08:45 08:45 WBC 12.60 K/ul H K/ul (4.00-12.00) RBC 3.62 M/ul L M/ul (3.90-5.20) Hgb 8.8 g/dL L g/dL (12.0-16.0) Hct 30.9 % L % (34.5-46.5) MCV 85.6 fl fl (80.0-100.0) MCH 24.4 pg L pg (28.0-34.0) MCHC 28.6 g/dL L g/dL (30.0-36.0) RDW 14.7 % H % (11.3-14.3) Plt Count 342 K/mm3 K/mm3 (130-400) Neut % (Auto) 84.1 % H % (39.0-79.0) Lymph % (Auto) 7.6 % L % (16.0-50.0) [place] % (Auto) 6.3 % % (0.0-11.0) Eos % (Auto) 0.6 % % (0.0-6.8) Baso % (Auto) 0.4 (0.0-1.5) Neut # 10.6 # k/uL H # k/uL (1.4-7.7) Lymph # 1.0 # k/uL # k/uL (0.6-4.0) [place] # 0.8 # k/uL # k/uL (0.0-0.9) Eos # 0.1 # k/uL # k/uL (0.0-0.6) Baso # 0.0 # k/uL # k/uL (0.0-0.5) Reactive Lymphs % 1.0 % % (0.0-5.0) Reactive Lymphs # 0.1 # k/uL # k/uL (0.0-0.8) Sodium 143 mmol/L mmol/L (136-145) Potassium 4.1 mmol/L mmol/L (3.5-5.0) Chloride 104 mmol/L mmol/L (98-110) Carbon Dioxide 28 mmol/L mmol/L (20-32) BUN 22 mg/dL mg/dL (10-26) Creatinine 1.1 mg/dL mg/dL (0.4-1.5) Estimated Creat Clear 72 Est GFR ( Amer) > 60 (60 - ) Est GFR (Non-Af Amer) > 60 (60 - ) Glucose 149 mg/dL H mg/dL (70-99) Uric Acid 6.4 mg/dL mg/dL (2.0-7.8) Calcium 8.8 mg/dL mg/dL (8.5-10.5) Total Bilirubin 0.5 mg/dL mg/dL (0.2-1.2) AST 27 U/L U/L (0-41) ALT 17 U/L U/L (0-45) Alkaline Phosphatase 101 U/L U/L (46-116) Total Protein 6.7 g/dL g/dL (6.0-8.5) Albumin 3.5 g/dL g/dL (3.0-5.5) - Orders Orders: ED Orders Category Date Time Status Place Saline Lock/IV Now Care 09/30/16 08:27 Active RT HIP 2VIEW COMPLETE [RAD] Routine Exams 09/30/16 Completed CBC/PLATELET/DIFF Routine Lab 09/30/16 08:45 Completed CMP Routine Lab 09/30/16 08:45 Completed URIC ACID Routine Lab 09/30/16 08:45 Completed Ketorolac Tromethamine [Toradol] Med 09/30/16 08:28 Discontinued 30 mg IVP NOW ONE fentaNYL CITRATE/PF [Duragesic] Med 09/30/16 09:16 Discontinued 50 mcg IVP NOW ONE Lower Extremity Problem - EXAM General Appearance: moderate distress Hips: right hip: non-tender, normal inspection, normal range of motion, no evidence of injury, left hip: deformity (none), limited range of motion, pain, soft tissue tenderness, N/A: ecchymosis (none), swelling (none) Legs: bilateral: non-tender, normal inspection, normal range of motion, no evidence of injury Knees: right: no evidence of injury, left: pain, soft tissue tenderness, swelling, N/A: deformity (none), ecchymosis (none) Foot: bilateral foot: non-tender, normal inspection, normal range of motion, no evidence of injury DTR - Lower Extremities: knee (R): 2+, knee (L): 1+, ankle (R): 2+, ankle (L): 2 + Neuro/Tendon: normal sensation, normal motor functions, responds to pain, no evidence tendon injury EENT: pharynx normal, no signs of dehydration RESPIRATORY: no resp distress. No: wheezes, rales, rhonchi CVS: reg rate & rhythm, heart sounds normal, equal pulses, no murmur, no gallop , PMI nml JOINT: No: nml ROM VASCULAR: no vascular compromise NEURO/PSYCH: mood/affect nml, cognition normal SKIN: warm/dry, normal color. No: cyanosis BACK: normal inspection, no CVA tenderness Discharge Clincal Impression: Hip pain, left Home Medications: Ambulatory Orders Cyanocobalamin [Vitamin B-12] 1,000 mcg SUBCUT NOW 09/30/16 Folic Acid [Folic Acid] 09/30/16 Metformin HCl [Glucophage] 09/30/16 Metoprolol Succinate [Toprol Xl] 25 mg PO BID 09/30/16 Omeprazole [Omeprazole] 09/30/16 Prednisone [Deltasone] 2.5 mg PO AM 09/30/16 Prednisone [Deltasone] 5 mg PO HS 09/30/16 amLODIPine BESYLATE [Norvasc] 5 mg PO 0900 09/30/16 Condition: Good Disposition: ADMITTED INPATIENT Decision to Admit: [id number] Date of Decison to Admit: 09/30/16 Decision Time: 11:07
[2016-09-30] MEDS ORDERED: KETOROLAC TROMETHAMINE 30 MG/1ML VIAL IVP ONE (08:28)
[2016-09-30 08:51] LABS: BASOPHILS % 0.4 (0.0-1.5); EOSINOPHILS % 0.6 % (0.0-6.8); MEAN CORPUSCULAR HEMOGLOBIN 24.4 pg (28.0-34.0); MONOCYTES # 0.8 # k/uL (0.0-0.9); MONOCYTES % 6.3 % (0.0-11.0); NEUTROPHILS # 10.6 # k/uL (1.4-7.7)
[2016-09-30 09:12] LABS: eGFR (African) > 60; eGFR (Non-African) > 60
[2016-09-30] MEDS ORDERED: fentaNYL CITRATE/PF 100 MCG/ 2ML AMP IVP ONE ×2 (09:16→10:12)
--- NOTE | 2016-09-30 09:46 | Diagnostic Imaging Report ---
[facility] [id number] [facility].[address] [id number] Report Submission Date: Sep 30, 2016 9:42:08 AM MANAGER STORY Patient Study Name: TORRES IRVIN Date: Sep 30, 2016 8:48:04 AM MANAGER STORY Modality Type: CR Gender: F Description: PELVIS : 44 Institution: [facility] Physician: BARBARA SNEED Left hip -two views CLINICAL HISTORY: Left hip pain. FINDINGS: Examination of the left hip in AP and frog-leg lateral views demonstrates degenerative changes with narrowing of the hip joint space and osteophyte formation. There is no evident fracture and no lytic or blastic lesion. IMPRESSION: Degenerative changes. No fracture. Electronically signed on Sep 30, 2016 9:42:08 AM MANAGER STORY by: Donnie NELSON
--- NOTE | 2016-09-30 10:27 | History and Physical Report ---
History of Present Illnes - History of Present Illness Reason for Visit: hip pain History of Present Illness: 76yo white female who underwent a left TKR about 3 weeks ago. Was in SNF for rehab and was discharged home yesterday. Patient did well until early this AM when she developed some some severe left hip pain that started while she was in bed. Has taken several pain medications without improvement. Pain seems to be worse with any movement. Patient denies nay fever or chills. Denies any recent injury. Has had some arthritis in the hip previously. Has a history of RA. Patient is unable to stand or ambulate at this time. 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 Alcohol: None Drugs: None Lives: With Family Domestic Violence: Negative - Health Maintenance Health Maintenance: Influenza Vaccine, Pneumococcal Vaccine, Other (Zostivax) Influenza Vaccine: Current for this Influenza Season Pneumonia Vaccine: Yes Resuscitation Status: Resusciation Status Resuscitation Status Full Code - Unable to Obtain History Unable to Obtain: No Review of Systems - Review of Systems Constitutional: negative: Fever, Chills, Weakness Eyes: negative: pain, vision change ENT: negative: Ear Pain, Ear Discharge, Nose Pain, Nose Discharge, Nose Congestion Respiratory: negative: Cough, Dry, Shortness of Breath, Hemoptysis, Wheezing Cardiovascular: negative: Chest Pain, Palpitations Gastrointestinal: Constipation (OK). negative: Vomiting, Abdominal Pain, Diarrhea, Melena, Hematochezia Genitourinary: negative: Dysuria, Frequency Musculoskeletal: Leg Pain. negative: Neck Pain, Shoulder Pain, Arm Pain, Back Pain Skin: negative: Rash, Lesions Neurological: negative: Weakness, Numbness - Medications/Allergies Allergies/Adverse Reactions: Allergies Allergy/AdvReac Type Severity Reaction Status Date / Time levofloxacin [From Levaquin] Allergy Rash Verified 09/30/16 08:31 tramadol AdvReac Vomiting Verified 09/30/16 08:31 Home Medications: Home Medications Cyanocobalamin [Vitamin B-12] 1,000 mcg SUBCUT NOW 09/30/16 Folic Acid [Folic Acid] 09/30/16 Metformin HCl [Glucophage] 09/30/16 Metoprolol Succinate [Toprol Xl] 25 mg PO BID 09/30/16 Omeprazole [Omeprazole] 09/30/16 Prednisone [Deltasone] 2.5 mg PO AM 09/30/16 Prednisone [Deltasone] 5 mg PO HS 09/30/16 amLODIPine BESYLATE [Norvasc] 5 mg PO 0900 09/30/16 Current Inpatient Medications: Current Inpatient Medications Amlodipine Besylate (Norvasc) 5 mg PO 0900 [facility] Enoxaparin Sodium (Lovenox) 30 mg SQ QD [facility] Stop: 10/13/16 11:01 Metformin HCl (Glucophage) 500 mg PO D [facility] Metoprolol Succinate (Toprol Xl) 25 mg PO BID [facility] Miscellaneous (Prednisone [Deltasone]) 2.5 mg PO AM [facility] Miscellaneous (Prednisone [Deltasone]) 5 mg PO HS [facility] Oxycodone/Acetaminophen (Percocet 5-325 Mg Tablet) 1 each PO Q4 PRN PRN Reason: Severe Pain Pantoprazole Sodium (Protonix) 40 mg PO 0700 [facility] Sodium Chloride (Normal Saline Flush) 3 ml IV BID [facility] Exam - Exam Vital Signs: Vital Signs (72 hours) 09/30/16 10:21 Temperature 98.3 F Pulse Rate [ 84 Pulse ox] Respiratory 18 Rate Blood Pressure 136/78 [Right Arm] O2 Sat by Pulse 99 Oximetry General: Alert, Oriented to Person, Oriented to Place, Oriented to Time, Cooperative, Moderate distress HEENT: Atraumatic, PERRLA, EOMI Neck: Normal Range of Motion. No: Stridor, Rigidity, Lymphadenopathy Carotids: WNL Thyroid: WNL Lungs: Clear to auscultation, Normal air movement, Speaks full Sentences. No: Respiratory Distress, Wheezes, Rales, Rhonchi Cardiovascular: Regular rate, Normal S1, Normal S2, No murmurs Abdomen: Normal bowel sounds, Soft, No tenderness, No hepatospenomegaly, No masses. No: Distended Integumentary: Normal, [place], Warm, Dry Extremities: No clubbing, No cyanosis, Other (some edema to the left lower extremity) Neurological: Normal speech, Strength Equal Bilat, Normal tone, Sensation intact , Cranial nerves 3-12 NL, Reflexes 2+. No: Normal gait Psych/Mental Status: Mental status NL, Mood NL, Appropriate Affect, Intact Judgment Assessment/Plan - Assessment/Plan (1) Hip pain, left Status: Acute Current Visit: Yes Assessment: Etiology unclear at this time. Pat does have evidence of OA in the hip area. Will start some PT and OT after being readmitted to SNF. Will start NSAID. Patient is taking steroid for RA. Has been off plaquinil for several weeks on advice of orthopedics. (2) Gait disturbance Status: Acute Current Visit: No Assessment: Will start PT and OT (3) Osteoarthritis Status: Acute Current Visit: No Assessment: as above (4) rheumatoid arthritis Status: Acute Current Visit: No Assessment: continue with home meds (5) Essential hypertension Status: Chronic Current Visit: No Assessment: continue with home meds VTE Assessment - RISK FACTOR SCORE VTE RISK FACTOR SCORES: AGE OVER 60 YEARS, ANTICIPATED BED CONFINEMENT OR IMMOBILIZATION > 24 HOURS
[2016-09-30 10:58] VITALS: BMI 33.6
[2016-09-30] MEDS: oxyCODONE/ACETAMINOPHEN 5/325 TABLET PO PRN ×2 (11:11→19:17)
[2016-09-30] MEDS: ENOXAPARIN SODIUM 30 MG/0.3 ML DISP.SYRIN SQ SCH (11:11)
[2016-09-30] MEDS: SALINE FLUSH 10 ML DISP.SYRIN IVF SCH (20:43)
[2016-09-30] MEDS: METOPROLOL SUCCINATE 50 MG TAB.ER.24H PO SCH (20:43)
[2016-09-30] MEDS: predniSONE 10 MG TABLET PO SCH (20:43)
[2016-10-01] MEDS: PANTOPRAZOLE SODIUM 40 MG TABLET PO SCH (06:12)
[2016-10-01] MEDS: predniSONE 1 MG TABLET PO SCH (09:36)
[2016-10-01] MEDS: amLODIPine BESYLATE 5 MG TABLET PO SCH (09:36)
[2016-10-01] MEDS: METOPROLOL SUCCINATE 50 MG TAB.ER.24H PO SCH ×2 (09:37→20:14)
[2016-10-01] MEDS: SALINE FLUSH 10 ML DISP.SYRIN IVF SCH ×2 (09:41→20:10)
[2016-10-01] MEDS: ENOXAPARIN SODIUM 30 MG/0.3 ML DISP.SYRIN SQ SCH (11:23)
[2016-10-01] MEDS: oxyCODONE/ACETAMINOPHEN 5/325 TABLET PO PRN ×3 (13:16→21:31)
[2016-10-01] MEDS: predniSONE 10 MG TABLET PO SCH (20:10)
[2016-10-02] MEDS: PANTOPRAZOLE SODIUM 40 MG TABLET PO SCH (06:23)
[2016-10-02] MEDS: oxyCODONE/ACETAMINOPHEN 5/325 TABLET PO PRN ×3 (06:23→20:40)
[2016-10-02 07:02] LABS: BASOPHILS % 0.3 (0.0-1.5); EOSINOPHILS % 1.3 % (0.0-6.8); MEAN CORPUSCULAR HEMOGLOBIN 24.8 pg (28.0-34.0); MONOCYTES # 0.5 # k/uL (0.0-0.9); MONOCYTES % 5.3 % (0.0-11.0); NEUTROPHILS # 8.2 # k/uL (1.4-7.7)
[2016-10-02 07:21] LABS: eGFR (African) > 60; eGFR (Non-African) > 60
[2016-10-02] MEDS: METOPROLOL SUCCINATE 50 MG TAB.ER.24H PO SCH ×2 (08:34→20:41)
[2016-10-02] MEDS: predniSONE 1 MG TABLET PO SCH (08:36)
[2016-10-02] MEDS: amLODIPine BESYLATE 5 MG TABLET PO SCH (08:36)
[2016-10-02] MEDS: SALINE FLUSH 10 ML DISP.SYRIN IVF SCH ×2 (08:38→21:22)
[2016-10-02] MEDS ORDERED: MAGNESIUM HYDROXIDE 400 MG/5 ML 30ML UDC PO ONE (10:15)
[2016-10-02] MEDS ORDERED: diphenhydrAMINE HCL 25 MG TABLET PO ONE (10:42)
[2016-10-02] MEDS ORDERED: ACETAMINOPHEN 500 MG TABLET PO ONE (10:42)
[2016-10-02] MEDS: ENOXAPARIN SODIUM 30 MG/0.3 ML DISP.SYRIN SQ SCH (11:27)
[2016-10-02] MEDS ORDERED: 0.9 % SODIUM CHLORIDE 250 ML IV ONE (14:08)
[2016-10-02] MEDS: predniSONE 10 MG TABLET PO SCH (20:41)
[2016-10-03] MEDS: oxyCODONE/ACETAMINOPHEN 5/325 TABLET PO PRN ×5 (01:44→20:38)
[2016-10-03] MEDS: PANTOPRAZOLE SODIUM 40 MG TABLET PO SCH (06:01)
[2016-10-03 07:56] LABS: eGFR (African) > 60; eGFR (Non-African) > 60
[2016-10-03] MEDS: METOPROLOL SUCCINATE 50 MG TAB.ER.24H PO SCH ×2 (08:23→20:36)
[2016-10-03] MEDS: amLODIPine BESYLATE 5 MG TABLET PO SCH (08:23)
[2016-10-03] MEDS: predniSONE 1 MG TABLET PO SCH (08:25)
[2016-10-03] MEDS: SALINE FLUSH 10 ML DISP.SYRIN IVF SCH ×2 (08:28→20:35)
[2016-10-03 09:38] LABS: BASOPHILS % 0.3 (0.0-1.5); EOSINOPHILS % 1.9 % (0.0-6.8); LYMPHOCYTES # 1.2 # k/uL (0.6-4.0); MEAN CORPUSCULAR HEMOGLOBIN 26.5 pg (28.0-34.0); MONOCYTES # 0.5 # k/uL (0.0-0.9)
[2016-10-03] MEDS: ENOXAPARIN SODIUM 30 MG/0.3 ML DISP.SYRIN SQ SCH (11:52)
[2016-10-03] MEDS ORDERED: FERROUS SULFATE 325 MG TABLET PO ONE ×2 (11:54→13:45)
[2016-10-03] MEDS: FERROUS SULFATE 325 MG TABLET PO SCH ×2 (11:55→18:14)
[2016-10-03] MEDS: predniSONE 10 MG TABLET PO SCH (20:35)
[2016-10-04] MEDS: PANTOPRAZOLE SODIUM 40 MG TABLET PO SCH (06:41)
[2016-10-04] MEDS: oxyCODONE/ACETAMINOPHEN 5/325 TABLET PO PRN ×5 (06:41→23:43)
[2016-10-04] MEDS ORDERED: FERROUS SULFATE 325 MG TABLET PO ONE (07:01)
[2016-10-04] MEDS: predniSONE 1 MG TABLET PO SCH (08:44)
[2016-10-04] MEDS: amLODIPine BESYLATE 5 MG TABLET PO SCH (08:45)
[2016-10-04] MEDS: METOPROLOL SUCCINATE 50 MG TAB.ER.24H PO SCH ×2 (08:46→20:13)
[2016-10-04] MEDS: FERROUS SULFATE 325 MG TABLET PO SCH ×2 (10:46→18:55)
[2016-10-04] MEDS: ENOXAPARIN SODIUM 30 MG/0.3 ML DISP.SYRIN SQ SCH (11:23)
[2016-10-04] MEDS ORDERED: ONDANSETRON HCL 4 MG TAB.RAPDIS PO PRN (11:36)
[2016-10-04] MEDS ORDERED: ONDANSETRON HCL 4 MG TAB.RAPDIS ONE (11:37)
[2016-10-04] MEDS: predniSONE 10 MG TABLET PO SCH (20:12)
[2016-10-05] MEDS ORDERED: FERROUS SULFATE 325 MG TABLET PO ONE (05:13)
[2016-10-05] MEDS: oxyCODONE/ACETAMINOPHEN 5/325 TABLET PO PRN (05:42)
[2016-10-05] MEDS: PANTOPRAZOLE SODIUM 40 MG TABLET PO SCH (05:42)
[2016-10-05 06:55] LABS: BASOPHILS % 0.5 (0.0-1.5); EOSINOPHILS % 1.8 % (0.0-6.8); LYMPHOCYTES # 1.4 # k/uL (0.6-4.0); MONOCYTES # 0.5 # k/uL (0.0-0.9); MONOCYTES % 6.6 % (0.0-11.0); NEUTROPHILS # 5.3 # k/uL (1.4-7.7)
[2016-10-05] MEDS: amLODIPine BESYLATE 5 MG TABLET PO SCH (08:24)
[2016-10-05] MEDS: predniSONE 1 MG TABLET PO SCH (08:24)
[2016-10-05] MEDS: METOPROLOL SUCCINATE 50 MG TAB.ER.24H PO SCH (08:26)
[2016-10-05 09:45] VITALS: BP 143/102
--- NOTE | 2016-10-05 21:50 | Discharge Summary ---
Discharge Summary - Discharge Sumary History of Present Illness: 76yo white female who underwent a left TKR about 3 weeks ago. Was in SNF for rehab and was discharged home yesterday. Patient did well until early this AM when she developed some some severe left hip pain that started while she was in bed. Has taken several pain medications without improvement. Pain seems to be worse with any movement. Patient denies nay fever or chills. Denies any recent injury. Has had some arthritis in the hip previously. Has a history of RA. Patient is unable to stand or ambulate at this time. Condition at Discharge: Stable Home Medications: Ambulatory Orders Medication Instructions Recorded Cyanocobalamin [Vitamin B-12] 1,000 mcg SUBCUT NOW 09/30/16 Metformin HCl [Glucophage] 09/30/16 Metoprolol Succinate [Toprol XL] 25 mg PO BID 09/30/16 Omeprazole 09/30/16 Prednisone [Deltasone] 2.5 mg PO AM 09/30/16 Prednisone [Deltasone] 5 mg PO HS 09/30/16 amLODIPine BESYLATE [Norvasc] 5 mg PO 0900 09/30/16 Ferrous Sulfate [Feosol] 325 mg PO [id number] #60 tablet. 10/05/16 Allergies/Adverse Reactions: Allergies Allergy/AdvReac Type Severity Reaction Status Date / Time levofloxacin [From Levaquin] Allergy Rash Verified 09/30/16 08:31 tramadol AdvReac Vomiting Verified 09/30/16 08:31 Discharge Summary: Patient's pain medications were changed to help control her severe pain that she was having. Patient was restarted on physical and occupational therapy. Within 24 hours. Patient did have some improvement in her left hip pain. Patient was able to start to ambulate with assistance. Patient was noted to be anemic. Patient hemoglobin dropped to 7.7. This was felt possibly be related to some of the patient's weakness. Patient was subsequently transfused 2 units of packed RBCs. Patient's ability to ambulate improved. Patient was subsequently discharged home in stable condition. - Final Diagnosis (1) Gait disturbance Problems: improved (2) Hip pain, left Problems: improved (3) Osteoarthritis Problems: stable (4) rheumatoid arthritis Problems: stabale (5) Essential hypertension Problems: stable on home meds
--- NOTE | 2016-10-05 21:55 | Inpatient Progress Note ---
Subjective - Required Recertification Statement I anticipate X number of days because-include discharge plan: 3 da - Review of Systems Events since last encounter: patient states that her right hip. Pain does seem to be improved at this time. Patient remained very weak with the ED physician debilitating. Patient states she is having some shortness of breath with exertion. Repeat hemoglobin and hematocrit showed her hemoglobin to drop down to 7.7. Patient denies any chest pain chest pressure TIA or CVA symptoms. Pulmonary: Denies: Dyspnea, Cough, Pleuritic Chest Pain Cardiovascular: Denies: Chest Pain, Palpitations Gastrointestinal: Denies: Nausea, Vomiting, Diarrhea, Melena, Hematochezia Neurological: Weakness Objective - Exam Vitals and I&O: Vital Signs Temp 98.2 F 10/05/16 09:00 Pulse 72 10/05/16 09:00 Resp 16 10/05/16 09:00 BP 143/102 10/05/16 09:00 Pulse Ox 100 10/04/16 21:00 Intake & Output 10/04/16 10/05/16 10/05/16 23:59 11:59 23:59 Intake Total 700 240 Balance 700 240 Intake: Oral 700 240 Other: Voiding Method Toilet Toilet # Voids 1 2 General: Alert, Oriented to Person, Oriented to Place, Oriented to Time, Cooperative Neck: Supple Lungs: Clear to auscultation, Normal air movement, Speaks full Sentences Cardiovascular: Regular rate, Normal S1, Normal S2, No murmurs Abdomen: Normal bowel sounds, Soft, No tenderness, No hepatospenomegaly, No masses - Results Results: Laboratory Results WBC 7.70 K/ul (4.00-12.00) 10/05/16 06:25 RBC 3.84 M/ul (3.90-5.20) L 10/05/16 06:25 Hgb 10.0 g/dL (12.0-16.0) L 10/05/16 06:25 Hct 33.5 % (34.5-46.5) L 10/05/16 06:25 MCV 87.2 fl (80.0-100.0) 10/05/16 06:25 MCH 26.0 pg (28.0-34.0) L 10/05/16 06:25 MCHC 29.8 g/dL (30.0-36.0) L 10/05/16 06:25 RDW 15.2 % (11.3-14.3) H 10/05/16 06:25 Plt Count 274 K/mm3 (130-400) 10/05/16 06:25 Neut % (Auto) 68.9 % (39.0-79.0) 10/05/16 06:25 Lymph % (Auto) 18.0 % (16.0-50.0) 10/05/16 06:25 [place] % (Auto) 6.6 % (0.0-11.0) 10/05/16 06:25 Eos % (Auto) 1.8 % (0.0-6.8) 10/05/16 06:25 Baso % (Auto) 0.5 (0.0-1.5) 10/05/16 06:25 Neut # 5.3 # k/uL (1.4-7.7) 10/05/16 06:25 Lymph # 1.4 # k/uL (0.6-4.0) 10/05/16 06:25 [place] # 0.5 # k/uL (0.0-0.9) 10/05/16 06:25 Eos # 0.1 # k/uL (0.0-0.6) 10/05/16 06:25 Baso # 0.0 # k/uL (0.0-0.5) 10/05/16 06:25 Reactive Lymphs % 4.2 % (0.0-5.0) 10/05/16 06:25 Reactive Lymphs # 0.3 # k/uL (0.0-0.8) 10/05/16 06:25 Sodium 136 mmol/L (136-145) 10/03/16 07:05 Potassium 5.0 mmol/L (3.5-5.0) 10/03/16 07:05 Chloride 97 mmol/L (98-110) L 10/03/16 07:05 Carbon Dioxide 22 mmol/L (20-32) 10/03/16 07:05 BUN 11 mg/dL (10-26) 10/03/16 07:05 Creatinine 0.9 mg/dL (0.4-1.5) 10/03/16 07:05 Estimated Creat Clear 87 10/03/16 07:05 Est GFR ( Amer) > 60 (60-) 10/03/16 07:05 Est GFR (Non-Af Amer) > 60 (60-) 10/03/16 07:05 Glucose 112 mg/dL (70-99) H 10/03/16 07:05 Uric Acid 6.4 mg/dL (2.0-7.8) 09/30/16 08:45 Calcium 9.3 mg/dL (8.5-10.5) 10/03/16 07:05 Iron (send out) 10 ug/dL (37-145) L 10/02/16 11:20 Total Bilirubin 0.3 mg/dL (0.2-1.2) 10/02/16 06:15 AST 34 U/L (0-41) 10/02/16 06:15 ALT 17 U/L (0-45) 10/02/16 06:15 Alkaline Phosphatase 89 U/L (46-116) 10/02/16 06:15 Total Protein 5.6 g/dL (6.0-8.5) L 10/02/16 06:15 Albumin 3.0 g/dL (3.0-5.5) 10/02/16 06:15 Assessment/Plan - Assessment/Plan (1) Gait disturbance Status: Acute Assessment: improved (2) Hip pain, left Status: Acute Assessment: improved (3) Osteoarthritis Status: Acute (4) rheumatoid arthritis Status: Acute (5) Essential hypertension Status: Chronic (6) Iron deficiency anemia Status: Acute Assessment: will get iron studies.Patient had to be transfused 1 unit of packed RBCs after her recent operation. We'll go ahead and transfuse the patient was unit of packed RBCs.
== END 2016-10-05 10:30 | disposition home or self-care (01) | DRG 93 ==
LOC: ED 08:21 → SOUTH 09:59
PROVIDERS: ADMIT Family Medicine; ATTEND Family Medicine
DX: R26.9 Unspecified abnormalities of gait and mobility (principal); M25.552 Pain in left hip; Z96.651 Presence of right artificial knee joint; M16.11 Unilateral primary osteoarthritis, right hip; M06.9 Rheumatoid arthritis, unspecified; I10 Essential (primary) hypertension
CPT/HCPCS: 36415; 73502; 80048; 80053; 83540; 84550; 85025; 86885; 86900; 86901; 86920; 97110; 97112; 97116; 97165; 97530; 97535; A9270; J1650; J1885; J3010; J7050; J7512; Q0163; P9040; S1016

== ENCOUNTER 2016-10-27 14:15 | Outpatient (CLI) | payer MEDICARE, OTHER ==
[2016-10-27 14:23] LABS: BASOPHILS % 0.3 (0.0-1.5); EOSINOPHILS % 1.9 % (0.0-6.8); LYMPHOCYTES # 1.3 # k/uL (0.6-4.0); MEAN CORPUSCULAR HEMOGLOBIN 26.5 pg (28.0-34.0); MONOCYTES # 0.6 # k/uL (0.0-0.9); NEUTROPHILS # 9.8 # k/uL (1.4-7.7)
== END 2016-10-27 14:20 ==
LOC: LABRHC 14:15
PROVIDERS: ATTEND Family Medicine
DX: D50.9 Iron deficiency anemia, unspecified (principal)
CPT/HCPCS: 36415; 85025

== ENCOUNTER 2016-11-28 10:20 | Outpatient (CLI) | payer MEDICARE, OTHER ==
[2016-11-28 10:54] LABS: BASOPHILS % 0.2 (0.0-1.5); EOSINOPHILS % 0.6 % (0.0-6.8); MEAN CORPUSCULAR HEMOGLOBIN 28.5 pg (28.0-34.0); MEAN CORPUSCULAR VOLUME 90.6 fl (80.0-100.0); MONOCYTES % 3.6 % (0.0-11.0); NEUTROPHILS # 10.8 # k/uL (1.4-7.7)
[2016-11-28 11:50] LABS: eGFR (African) > 60; eGFR (Non-African) > 60
== END 2016-11-28 10:21 ==
LOC: LAB 10:20
PROVIDERS: ATTEND Family Medicine
DX: R53.83 Other fatigue (principal)
CPT/HCPCS: 36415; 80053; 82306; 84443; 85025

== ENCOUNTER 2017-05-18 12:11 | Inpatient (IN) | payer MEDICARE, OTHER ==
[2017-05-18] MEDS ORDERED: ENOXAPARIN SODIUM 30 MG/0.3 ML DISP.SYRIN SQ SCH (13:00)
[2017-05-18] MEDS ORDERED: ACETAMINOPHEN WITH CODEINE 300MG/30MG TABLET PO PRN (13:05)
[2017-05-18 13:40] VITALS: BMI 34.5
[2017-05-18 13:54] LABS: BASOPHILS % 0.6 (0.0-1.5); MEAN CORPUSCULAR HEMOGLOBIN 28.4 pg (28.0-34.0); MEAN CORPUSCULAR VOLUME 95.5 fl (80.0-100.0); NEUTROPHILS # 11.1 # k/uL (1.4-7.7)
[2017-05-18] MEDS ORDERED: amLODIPine BESYLATE 5 MG TABLET PO SCH (14:00)
--- NOTE | 2017-05-18 14:30 | Diagnostic Imaging Report ---
[facility] [address] [facility].[address] [id number] Report Submission Date: May 18, 2017 2:04:32 PM CDT Patient Study Name: TORRES IRVIN Date: May 18, 2017 1:43:38 PM CDT Modality Type: CR Gender: F Description: CHEST : 44 Institution: [facility] Physician: [facility] Examination: PA and lateral chest. History: Evaluate lung duncan. Comparison exam: None available Findings: PA lateral chest demonstrates prominent cardiac silhouette. Diffuse parenchymal infiltrates involving the lung duncan, right greater than left. Blunting of the right costophrenic margin with fluid within the minor fissure. Minimal blunting of the left costophrenic margin. Left humeral replacement. Impression: Significant parenchymal infiltrates, right greater than left. Bilateral pleural effusions. Electronically signed on May 18, 2017 2:04:32 PM CDT by: Kirit NELSON
[2017-05-18] MEDS ORDERED: FUROSEMIDE 40 MG/4 ML VIAL IVP ONE (15:37)
--- NOTE | 2017-05-18 15:47 | History and Physical Report ---
History of Present Illnes - History of Present Illness Reason for Visit: Dyspnea History of Present Illness: 76yo white female who states that she has been having some increasing dyspnea and and SOB over the last 4-5 days. Patient states that she has been having a mild productive cough of some green phlegm at times. Has been having some wheezing at times. Has had some swelling in her RLE ,believes it might be related to her arthritis to her right knee. Has been running a low grade fever at times. Patient denies any chest pain or pressure. Appetitie has been fair. Patient presented to the clinic today. SAO2 was 82% on RA, with 2 liters of oxygen it did improve to 92%. Patient was noted to have some course rhonchi R>L and admitted to the hospital for further evaluation and treatment. Patient was noted to have an irregular heart rate with no history of A fib in the past. 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) Gastrointestinal: Other (esophagitis) Psych: Anxiety, Depression Musculoskeletal: Chronic low back pain Rheumatologic: Gout, Rheumatoid arthritis, Other (degenerative disc disease) Endocrine: Other (gout) - Past Surgical History Past Surgical History: Cholecystectomy, Hysterectomy, Total Knee Replacement ( left), Other (shoulder surgery) - Past Family History Mother Family History: Cancer ( ALL), (40yo) Father Family History: Hypertension, (32yo from a heart condition) - Past Social History 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 negative: Chills Eyes: negative: pain, vision change, conjunctivae inflammation, eyelid inflammation ENT: negative: Ear Pain, Ear Discharge, Nose Pain, Nose Discharge, Nose Congestion, Mouth Pain, Mouth Swelling, Throat Pain, Throat Swelling Respiratory: Cough, Shortness of Breath, SOB with Excertion, Sputum (green), Wheezing. negative: Hemoptysis, Pleuritic Pain Cardiovascular: Palpitations, Light Headedness. negative: Chest Pain, Orthopnea , Paroxysmal Noc. Dyspnea Gastrointestinal: Constipation (occasional). negative: Nausea, Vomiting, Abdominal Pain, Diarrhea, Melena, Hematochezia Genitourinary: negative: Dysuria, Frequency, Incontinence, Hematuria Musculoskeletal: Back Pain (mild). negative: Neck Pain, Shoulder Pain Skin: negative: Rash, Lesions, Jaundice Neurological: Weakness. negative: Numbness, Incoordination, Change in Speech, Confusion, Seizures - Medications/Allergies Allergies/Adverse Reactions: Allergies Allergy/AdvReac Type Severity Reaction Status Date / Time levofloxacin [From Levaquin] Allergy Rash Verified 09/30/16 08:31 tramadol AdvReac Vomiting Verified 09/30/16 08:31 Current Inpatient Medications: Current Inpatient Medications Acetaminophen/Codeine Phosphate (Tylenol #3) 1 each PO Q6 PRN PRN Reason: pain or fever Albuterol/Ipratropium (Duoneb) 3 ml NEB Q4 [facility] Last Admin: 05/18/17 14:35 Dose: 3 ml Amlodipine Besylate (Norvasc) 5 mg PO DAILY [facility] Last Admin: 05/18/17 15:19 Dose: 5 mg Enoxaparin Sodium (Lovenox) 30 mg SQ QD [facility] Stop: 05/31/17 13:01 Furosemide (Lasix) 40 mg IVP NOW ONE Stop: 05/18/17 15:38 Ceftriaxone Sodium 1 gm/ (Sodium Chloride) 50 mls @ 100 mls/hr IV QD [facility] Azithromycin 500 mg/ Sodium (Chloride) 250 mls @ 125 mls/hr IV Q24H [facility] Stop: 05/23/17 15:59 Metformin HCl (Glucophage) 500 mg PO D [facility] Last Admin: 05/18/17 15:19 Dose: 500 mg Miscellaneous (Chem Sticks) 1 each MC BID [facility] Sodium Chloride (Normal Saline Flush) 3 ml IV BID [facility] Exam - Exam Vital Signs: Vital Signs (72 hours) 05/18/17 05/18/17 12:51 13:11 Temperature 98.7 F 98.7 F Pulse Rate [ 99 H Right Pulse ox] Pulse Rate [ 99 H Right] Respiratory 24 24 Rate Blood Pressure 179/91 179/91 [Right Arm] O2 Sat by Pulse 93 88 L Oximetry General: Alert, Oriented to Person, Oriented to Place, Oriented to Time, Cooperative, Mild distress HEENT: Atraumatic Neck: No: Stridor, Rigidity Carotids: WNL Thyroid: WNL Lungs: Speaks full Sentences, Respiratory Distress (mild), Rhonchi. No: Rales Cardiovascular: Normal S1, No murmurs, Irregularly Irregular Abdomen: Normal bowel sounds, Soft, No tenderness, No hepatospenomegaly, No masses Integumentary: Normal, [place], Warm, Dry Extremities: No clubbing, No cyanosis, Other (mild pedal edema, RLE>LLE) Neurological: Normal gait, Normal speech, Strength Equal Bilat, Normal tone, Sensation intact, Cranial nerves 3-12 NL, Reflexes 2+ Psych/Mental Status: Mental status NL, Mood NL, Appropriate Affect, Intact Judgment - Laboratory Results Laboratory Results: Laboratory Results 05/18/17 05/18/17 13:35 13:35 WBC 12.90 H RBC 3.50 L Hgb 9.9 L Hct 33.5 L MCV 95.5 MCH 28.4 MCHC 29.7 L RDW 13.4 Plt Count 162 Neut % (Auto) 86.2 H Lymph % (Auto) 5.4 L [place] % (Auto) 4.0 Eos % (Auto) 3.0 Baso % (Auto) 0.6 Neut # (Auto) 11.1 H Lymph # (Auto) 0.7 [place] # (Auto) 0.5 Eos # (Auto) 0.4 Baso # (Auto) 0.1 Reactive Lymphs % 0.8 Reactive Lymphs # 0.1 D-Dimer 878 H NT-Pro-B Natriuret Pep 5471.5 H Assessment/Plan - Assessment/Plan (1) Dyspnea Status: Acute Assessment: Not sure of etiology at this time. Will get chest x-ray, D dimer for possible DVT/PE, BNP to look for possible CHF. Will be maintained on supplemental oxygen therapy. (2) Diabetes type 2, controlled Status: Chronic Qualifiers: Diabetes mellitus usp insulin use: without ad terminal makeup operator use Assessment: continue with home med (3) rheumatoid arthritis Status: Chronic Assessment: continue with prednisone (4) Essential hypertension Status: Chronic Assessment: continue with home meds (5) Pedal edema Status: Acute Assessment: will check for CHF, Venous doppler ordered for possible DVT. VTE Assessment - RISK FACTOR SCORE VTE RISK FACTOR SCORES: AGE OVER 60 YEARS, ACUTE RESPIRATORY FAILURE/SEVERE COPD
[2017-05-18] MEDS ORDERED: AZITHROMYCIN 500 MG in 0.9 % SODIUM CHLORIDE 250 ML IV SCH (16:00)
[2017-05-18] MEDS ORDERED: cefTRIAXone SODIUM 1 GM in 0.9 % SODIUM CHLORIDE 50 ML IV SCH (16:00)
[2017-05-18] MEDS ORDERED: ENOXAPARIN SODIUM 100 MG/ML DISP.SYRIN SQ ONE (16:11)
[2017-05-18] MEDS ORDERED: cefTRIAXone SODIUM 1 GM VIAL ONE (16:12)
[2017-05-18 16:29] LABS: eGFR (African) > 60; eGFR (Non-African) > 60
[2017-05-18] MEDS ORDERED: IPRATROPIUM/ALBUTEROL SULFATE 3 ML AMPUL.NEB NEB SCH (17:00)
--- NOTE | 2017-05-18 17:08 | Discharge Summary ---
Discharge Summary - Discharge Sumary History of Present Illness: 76yo white female who states that she has been having some increasing dyspnea and and SOB over the last 4-5 days. Patient states that she has been having a mild productive cough of some green phlegm at times. Has been having some wheezing at times. Has had some swelling in her RLE ,believes it might be related to her arthritis to her right knee. Has been running a low grade fever at times. Patient denies any chest pain or pressure. Appetitie has been fair. Patient presented to the clinic today. SAO2 was 82% on RA, with 2 liters of oxygen it did improve to 92%. Patient was noted to have some course rhonchi R>L and admitted to the hospital for further evaluation and treatment. Patient was noted to have an irregular heart rate with no history of A fib in the past. Condition at Discharge: Critical Home Medications: Ambulatory Orders Medication Instructions Recorded Cyanocobalamin [Vitamin B-12] 1,000 mcg SUBCUT NOW 09/30/16 Metformin HCl [Glucophage] 09/30/16 Ferrous Sulfate [Feosol] 325 mg PO [id number] #60 tablet. 10/05/16 Azithromycin [Zithromax] 500 mg IV Q24H iv.soln. 05/18/17 Saline Flush [Normal Saline Flush] 3 ml IV BID #0 disp.syrin 05/18/17 cefTRIAXone SODIUM [Rocephin] 1 gm IV QD #0 vial 05/18/17 Consultations this Visit: None Procedures this Visit: None Allergies/Adverse Reactions: Allergies Allergy/AdvReac Type Severity Reaction Status Date / Time levofloxacin [From Levaquin] Allergy Rash Verified 09/30/16 08:31 tramadol AdvReac Vomiting Verified 09/30/16 08:31 Patient Problems: Current Active Problems Problem Status Onset Pedal edema Acute Diabetes type 2, controlled Chronic Discharge Summary: Patient was admitted to Acute care from clinic with dyspnea. Patient has been maintained on supplemental oxygen. Had to increase oxygen flow to 4 liters and then to a nonrebreather mask to maintain SOA2 in the low to mid 90s. Chest x- ray shows bilateral parenchymal infiltrates, cardiomegally. patient has had some increase swelling to both lower extremities, R>L. Venous doppler study ordered but has not been completed. Patient has had an elevated D-dimer. Patient was given lovenox 100mg IV for possible DVT until it could be ruled out. Patient has had blood cultures drawn and was given Rocephin 1gm IV and Azithromycin 500mg IV. Patient was noted to have an elevated BNP and cardiomegally on chest x-ray and was given 40mg of lasix IV. ABG showed ph 7.36 , PCO2 59, PO2 100, HCO3 33.3, SAO2 97% on NRM at 15 liters flow. Patient's respiratory status continued to derteriate and it was felt that she needed to be transferred to an MICU. [facility] was contacted and patient was transfered. - Final Diagnosis (1) Dyspnea Problems: condition worse, possibly related to pneumonia, CHF, PE, mucous plugging. (2) Diabetes type 2, controlled Problems: stable, last BS 182 (3) rheumatoid arthritis Problems: stable (4) Essential hypertension Problems: stable
[2017-05-18 17:23] LABS: ABG BASE EXCESS 6.2 (-2 - +2); ABG PH 7.36 (7.35-7.45)
[2017-05-18 18:46] VITALS: BP 145/51
[2017-05-18] MEDS ORDERED: SALINE FLUSH 10 ML DISP.SYRIN IV SCH (21:00)
== END 2017-05-18 15:25 | disposition short-term general hospital (02) | DRG 204 ==
LOC: SOUTH 12:11
PROVIDERS: ADMIT Family Medicine; ATTEND Family Medicine
DX: R06.00 Dyspnea, unspecified (principal); E11.9 Type 2 diabetes mellitus without complications; M06.9 Rheumatoid arthritis, unspecified; I10 Essential (primary) hypertension
CPT/HCPCS: 36415; 36600; 71020; 80053; 82803; 83605; 83880; 84484; 85025; 85379; 87040; 93005; J0696; J1650; J1940; S1016

== ENCOUNTER 2017-05-22 14:05 | Inpatient (IN) | payer MEDICARE, OTHER ==
[2017-05-22] MEDS ORDERED: ACETAMINOPHEN 325 MG TABLET PO PRN (14:52)
[2017-05-22] MEDS ORDERED: BISACODYL 5 MG TABLET.DR PO PRN (14:52)
[2017-05-22] MEDS ORDERED: IPRATROPIUM/ALBUTEROL SULFATE 3 ML AMPUL.NEB NEB PRN (15:21)
--- NOTE | 2017-05-22 15:26 | History and Physical Report ---
History of Present Illnes - History of Present Illness Reason for Visit: generalized weakness following illness History of Present Illness: Patient is a 76-year-old white female who several days prior to admission to acute care develop some increasing shortness of breath dyspnea. Patient was subsequently admitted to [facility]. Patient did appear to have an infiltrate on her chest x-ray with a mild leukocytosis. This also noted the patient had an elevated BNP and d-dimer. CT scan could not be done secondary to the patient's elevated kidney functions. Patient did develop some increasing shortness of breath dyspnea was subsequently transferred to [facility]. Patient was treated for a pneumonia. During her stay at [facility] patient did develop atrial fibrillation. At the time of dismissal patient continued to be in atrial fibrillation with an occasional rapid ventricular response.Patient is become a week and debilitated during her hospital stay. It was felt that the patient would benefit from further and patient physical and occupational therapy and and SNF setting. Patient was subsequently transferred to this institution for physical and occupational therapy. It is hoped that the patient will return home. 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 negative: Fever, Chills, Sweats Eyes: negative: vision change ENT: negative: Ear Pain, Ear Discharge, Nose Pain, Nose Discharge, Nose Congestion, Mouth Pain, Mouth Swelling, Throat Swelling Respiratory: Cough (mild productive of clear phlegm), Shortness of Breath, SOB with Excertion, Wheezing. negative: Dry, Hemoptysis, Pleuritic Pain Cardiovascular: negative: Chest Pain, Palpitations, Orthopnea, Light Headedness Gastrointestinal: negative: Nausea, Vomiting, Abdominal Pain, Diarrhea Genitourinary: negative: Dysuria, Frequency, Incontinence, Hematuria Musculoskeletal: Neck Pain, Back Pain, Leg Pain. negative: Shoulder Pain Skin: negative: Rash Neurological: Weakness. negative: Numbness, Incoordination, Change in Speech, Confusion, Seizures - Medications/Allergies Allergies/Adverse Reactions: Allergies Allergy/AdvReac Type Severity Reaction Status Date / Time levofloxacin [From Levaquin] Allergy Rash Verified 09/30/16 08:31 tramadol AdvReac Vomiting Verified 09/30/16 08:31 Home Medications: Home Medications Acetaminophen [Tylenol] 325 mg PO Q6 PRN 05/22/17 Aspirin [Darnell] 81 mg PO DAILY 05/22/17 Bisacodyl [Dulcolax] 5 mg PO DAILY PRN 05/22/17 Cholecalciferol (Vitamin D3) [Vitamin D3] 05/22/17 Docusate Sodium [Colace] 100 mg PO DAILY PRN 05/22/17 Multivitamin [Daily Multiple Vitamin] 1 each PO DAILY 05/22/17 predniSONE [Deltasone] 5 mg PO BID 05/22/17 Current Inpatient Medications: Current Inpatient Medications Acetaminophen (Tylenol) 325 mg PO Q6 PRN PRN Reason: Fever >101 Albuterol/Ipratropium (Duoneb) 3 ml NEB Q6 YULIA Albuterol/Ipratropium (Duoneb) 3 ml NEB Q4 PRN PRN Reason: Wheezing Amlodipine Besylate (Norvasc) 5 mg PO DAILY [facility] Aspirin (Aspirin) 81 mg PO DAILY [facility] Bisacodyl (Dulcolax) 5 mg PO DAILY PRN PRN Reason: Constipation Citalopram Hydrobromide (Celexa) 10 mg PO DAILY [facility] Docusate Sodium (Colace) 100 mg PO DAILY PRN PRN Reason: Constipation Folic Acid (Folvite) 1 mg PO DAILY [facility] Hydroxychloroquine Sulfate (Plaquenil) 200 mg PO BID [facility] Metformin HCl (Glucophage) mg PO DAILY [facility] Metoprolol Tartrate (Lopressor) 25 mg PO BID [facility] Multivitamins (Tab-A-Anayeli) 1 each PO DAILY [facility] Pantoprazole Sodium (Protonix) 40 mg PO 0700 [facility] Prednisone (Deltasone) 2.5 mg PO BID [facility] Exam - Exam General: Alert, Oriented to Person, Oriented to Place, Oriented to Time, Cooperative HEENT: Atraumatic, PERRLA, EOMI, Mouth Mucous membr. moist/[place], Nose Mucous membr. moist/[place] Neck: Normal Range of Motion Carotids: WNL Thyroid: WNL Lungs: Normal air movement, Speaks full Sentences, Wheezes, Rhonchi (scattered bilaterally) Cardiovascular: Normal S1, Normal S2, No murmurs, Irregularly Irregular Abdomen: Normal bowel sounds, Soft, No tenderness, No hepatospenomegaly, No masses Integumentary: Normal, [place], Warm, Dry Extremities: No clubbing, No cyanosis, No edema, Normal pulses, No tenderness/ swelling Neurological: Normal gait, Normal speech, Strength Equal Bilat, Normal tone, Sensation intact, Cranial nerves 3-12 NL, Reflexes 2+ Psych/Mental Status: Mental status NL, Mood NL, Appropriate Affect, Intact Judgment Assessment/Plan - Assessment/Plan (1) Atrial fibrillation Status: Acute Assessment: will continue with diltiazem (2) Pneumonia Status: Acute Qualifiers: Pneumonia type: due to unspecified organism Laterality: right Lung location: unspecified part of lung Qualified Code(s): J18.9 - Pneumonia, unspecified organism Assessment: finish course of antibiotics (3) Diabetes type 2 with atherosclerosis of arteries of extremities Status: Acute Assessment: continue home meds and monitor (4) Gait disturbance Status: Acute Assessment: PT and OT VTE Assessment - RISK FACTOR SCORE VTE RISK FACTOR SCORES: AGE OVER 60 YEARS, ACUTE INFECTION OTHER THEN SEPSIS - RISK VTE MODERATE RISK: SCORE OF 2 (RISK PROXIMAL DVT 2-4%) PROPHYAXIS NEEDED
[2017-05-22 16:01] VITALS: BMI 34.4
[2017-05-22] MEDS: CEFUROXIME AXETIL 250 MG TABLET PO SCH ×2 (16:13→21:21)
[2017-05-22] MEDS: HYDROXYCHLOROQUINE SULFATE 200 MG TABLET PO SCH ×2 (16:13→21:22)
[2017-05-22] MEDS ORDERED: IPRATROPIUM/ALBUTEROL SULFATE 3 ML AMPUL.NEB NEB ONE (16:46)
[2017-05-22] MEDS ORDERED: IPRATROPIUM/ALBUTEROL SULFATE 3 ML AMPUL.NEB NEB SCH (18:00)
[2017-05-22] MEDS ORDERED: METOPROLOL TARTRATE 50 MG TABLET PO ONE (18:45)
[2017-05-22] MEDS: METOPROLOL TARTRATE 50 MG TABLET PO SCH (21:20)
[2017-05-22] MEDS: predniSONE 1 MG TABLET PO SCH (21:20)
[2017-05-22] MEDS: ACETAMINOPHEN WITH CODEINE 300MG/30MG TABLET PO PRN (21:32)
[2017-05-22] MEDS: LEVALBUTEROL HCL 1.25 MG/3 ML AMPUL.NEB NEB SCH (23:55)
[2017-05-23] MEDS ORDERED: amLODIPine BESYLATE 5 MG TABLET ONE (04:09)
[2017-05-23] MEDS ORDERED: ASPIRIN EC 81 MG TABLET.DR ONE (04:09)
[2017-05-23] MEDS: PANTOPRAZOLE SODIUM 40 MG TABLET PO SCH (06:27)
[2017-05-23] MEDS: LEVALBUTEROL HCL 1.25 MG/3 ML AMPUL.NEB NEB SCH ×4 (06:27→23:27)
[2017-05-23] MEDS ORDERED: DILTIAZEM HCL 120 MG CAP.ER.24H ONE ×2 (06:37→12:16)
[2017-05-23] MEDS: DILTIAZEM HCL 120 MG CAP.ER.24H PO SCH ×2 (07:31→19:43)
[2017-05-23] MEDS: CITALOPRAM HYDROBROMIDE 20 MG TABLET PO SCH (08:17)
[2017-05-23] MEDS: predniSONE 1 MG TABLET PO SCH ×2 (08:17→19:44)
[2017-05-23] MEDS: CEFUROXIME AXETIL 250 MG TABLET PO SCH ×2 (08:18→19:43)
[2017-05-23] MEDS: HYDROXYCHLOROQUINE SULFATE 200 MG TABLET PO SCH ×2 (08:19→19:43)
[2017-05-23] MEDS: ASPIRIN 81 MG CHEW TAB PO SCH (08:19)
[2017-05-23] MEDS: MULTIVITAMIN 1 EACH TABLET PO SCH (08:20)
[2017-05-23] MEDS: CHOLECALCIFEROL 1,000 UNIT TABLET PO SCH (08:20)
[2017-05-23] MEDS: FOLIC ACID 1 MG TABLET PO SCH (08:20)
[2017-05-23] MEDS: METOPROLOL TARTRATE 50 MG TABLET PO SCH ×2 (08:21→19:46)
[2017-05-23] MEDS ORDERED: amLODIPine BESYLATE 5 MG TABLET PO SCH (09:00)
[2017-05-23] MEDS: ACETAMINOPHEN WITH CODEINE 300MG/30MG TABLET PO PRN ×2 (12:47→23:24)
--- NOTE | 2017-05-23 22:58 | Inpatient Progress Note ---
Subjective - Required Recertification Statement I anticipate X number of days because-include discharge plan: 10 - Review of Systems Events since last encounter: I came to see the patient due to persistent tachycardia. Her EKG shows persistent atrial fibrillation with RVR and a rate at about 140. I started her on diltiazem at 120 po BID (increased to TID tonight) due to this. She feels anxious, but does not have a subjective c/o palpitations. I reviewed her records from [place], and it appears that while she was there she had some intermittent AF. She was seen by Dr. Randle there, and he continued her motoprolol. She does not have any history of anticoagulation for this. General: Denies: Chills HEENT: Denies: Head Aches Pulmonary: Cough, Pleuritic Chest Pain Cardiovascular: Paroxysmal Noc. Dyspnea, Edema (trace). Denies: Chest Pain, Palpitations Gastrointestinal: Denies: Nausea, Vomiting Genitourinary: Denies: Dysuria Musculoskeletal: Denies: Neck Pain Neurological: Weakness, Other (Anxiety) Objective - Exam Vitals and I&O: Vital Signs Temp 98.3 F 05/23/17 20:59 Pulse 141 H 05/23/17 21:00 Resp 18 05/23/17 21:00 BP 132/74 05/23/17 20:59 Pulse Ox 93 05/23/17 20:59 Intake & Output 05/22/17 05/23/17 05/23/17 23:59 11:59 23:59 Intake Total 240 220 720 Balance 240 220 720 Weight 85.275 kg Intake: Oral 240 220 720 Other: Voiding Method Toilet Toilet Toilet # Voids 2 2 General: Alert, Oriented to Person, Oriented to Place, Oriented to Time, Cooperative, Mild distress (due to cough/respiratory distress) HEENT: Atraumatic, PERRLA, EOMI Neck: Supple, No JVD Lungs: Respiratory Distress, Wheezes, Prolonged Expiration, Decreased Air Movement Cardiovascular: Atrial Fib Abdomen: Normal bowel sounds, Soft Extremities: No clubbing, No cyanosis, No edema Skin: Normal, [place], Other (birthmark on left thigh) Neurological: Normal speech Psych/Mental Status: Mental status NL Assessment/Plan - Assessment/Plan (1) Pneumonia Status: Acute Current Visit: Yes Qualifiers: Pneumonia type: due to unspecified organism Laterality: right Lung location: unspecified part of lung Qualified Code(s): J18.9 - Pneumonia, unspecified organism Assessment: Continue cefuroxime (2) Atrial fibrillation Status: Acute Current Visit: Yes Assessment: Increased diltiazem to 180 TID from BID Continue metoprolol
[2017-05-24] MEDS ORDERED: DILTIAZEM HCL 120 MG CAP.ER.24H ONE ×3 (02:03→15:53)
[2017-05-24] MEDS ORDERED: ASPIRIN EC 81 MG TABLET.DR ONE (02:04)
[2017-05-24] MEDS: PANTOPRAZOLE SODIUM 40 MG TABLET PO SCH (06:07)
[2017-05-24] MEDS: LEVALBUTEROL HCL 1.25 MG/3 ML AMPUL.NEB NEB SCH ×3 (06:07→17:51)
[2017-05-24] MEDS: ASPIRIN 81 MG CHEW TAB PO SCH (08:08)
[2017-05-24] MEDS: DILTIAZEM HCL 120 MG CAP.ER.24H PO SCH ×3 (08:09→17:30)
[2017-05-24] MEDS: CITALOPRAM HYDROBROMIDE 20 MG TABLET PO SCH (08:10)
[2017-05-24] MEDS: METOPROLOL TARTRATE 50 MG TABLET PO SCH ×2 (08:11→19:42)
[2017-05-24] MEDS: FOLIC ACID 1 MG TABLET PO SCH (08:12)
[2017-05-24] MEDS: predniSONE 1 MG TABLET PO SCH ×2 (08:12→19:41)
[2017-05-24] MEDS: HYDROXYCHLOROQUINE SULFATE 200 MG TABLET PO SCH ×2 (08:14→19:41)
[2017-05-24] MEDS: CHOLECALCIFEROL 1,000 UNIT TABLET PO SCH (08:14)
[2017-05-24] MEDS: MULTIVITAMIN 1 EACH TABLET PO SCH (08:14)
--- NOTE | 2017-05-24 09:36 | Diagnostic Imaging Report ---
[facility] [id number] [facility].[address] [id number] Report Submission Date: May 24, 2017 9:24:31 AM CDT Patient Study Name: TORRES IRVIN Date: May 24, 2017 8:30:40 AM CDT Modality Type: CR Gender: F Description: CHEST : 44 Institution: [facility] Physician: LY LAWTON/MED SURG Examination: PA and lateral chest. History: Evaluate lung duncan. Comparison exam: 18 May 2017 Findings: PA lateral chest demonstrates a prominent cardiac silhouette. Tortuosity thoracic aorta. Degree of parenchymal haziness involving the right hemithorax has improved significantly since the 18 May 2017 examination. Minimal blunting of the right costophrenic margin. Left hemithorax has remained stable. Osseous structures are appropriate for age. Impression: Significant improvement of right hemithorax infiltrate/effusion. Electronically signed on May 24, 2017 9:24:31 AM CDT by: Kirit NELSON
[2017-05-24] MEDS: CEFUROXIME AXETIL 250 MG TABLET PO SCH ×2 (09:38→19:41)
[2017-05-24] MEDS ORDERED: AZITHROMYCIN 250 MG TABLET PO ONE (13:23)
[2017-05-24] MEDS: ACETAMINOPHEN WITH CODEINE 300MG/30MG TABLET PO PRN (19:42)
[2017-05-25] MEDS: LEVALBUTEROL HCL 1.25 MG/3 ML AMPUL.NEB NEB SCH ×4 (00:52→17:20)
[2017-05-25] MEDS: ACETAMINOPHEN WITH CODEINE 300MG/30MG TABLET PO PRN ×2 (00:52→16:40)
[2017-05-25] MEDS ORDERED: ASPIRIN EC 81 MG TABLET.DR ONE (04:46)
[2017-05-25] MEDS: PANTOPRAZOLE SODIUM 40 MG TABLET PO SCH (05:55)
[2017-05-25] MEDS: DILTIAZEM HCL 120 MG CAP.ER.24H PO SCH ×3 (06:14→20:47)
[2017-05-25 07:20] LABS: BASOPHILS % 0.7 (0.0-1.5); EOSINOPHILS % 1.9 % (0.0-6.8); MEAN CORPUSCULAR HEMOGLOBIN 27.2 pg (28.0-34.0); MEAN CORPUSCULAR VOLUME 88.2 fl (80.0-100.0); MONOCYTES % 4.6 % (0.0-11.0); NEUTROPHILS # 14.3 # k/uL (1.4-7.7); eGFR (African) > 60; eGFR (Non-African) > 60
[2017-05-25] MEDS: CEFUROXIME AXETIL 250 MG TABLET PO SCH ×2 (07:45→20:44)
[2017-05-25] MEDS: HYDROXYCHLOROQUINE SULFATE 200 MG TABLET PO SCH ×2 (07:46→20:45)
[2017-05-25] MEDS: predniSONE 1 MG TABLET PO SCH ×2 (07:46→20:46)
[2017-05-25] MEDS: METOPROLOL TARTRATE 50 MG TABLET PO SCH ×2 (07:47→20:47)
[2017-05-25] MEDS: ASPIRIN 81 MG CHEW TAB PO SCH (07:48)
[2017-05-25] MEDS: CITALOPRAM HYDROBROMIDE 20 MG TABLET PO SCH (07:48)
[2017-05-25] MEDS: FOLIC ACID 1 MG TABLET PO SCH (07:48)
[2017-05-25] MEDS: CHOLECALCIFEROL 1,000 UNIT TABLET PO SCH (07:49)
[2017-05-25] MEDS: MULTIVITAMIN 1 EACH TABLET PO SCH (07:49)
[2017-05-25] MEDS: ONDANSETRON HCL 4 MG TAB.RAPDIS PO PRN (12:00)
[2017-05-26] MEDS: ACETAMINOPHEN WITH CODEINE 300MG/30MG TABLET PO PRN ×3 (00:35→20:11)
[2017-05-26] MEDS: LEVALBUTEROL HCL 1.25 MG/3 ML AMPUL.NEB NEB SCH ×4 (00:35→22:59)
[2017-05-26] MEDS: PANTOPRAZOLE SODIUM 40 MG TABLET PO SCH (06:23)
[2017-05-26] MEDS: DILTIAZEM HCL 120 MG CAP.ER.24H PO SCH ×3 (06:23→20:12)
[2017-05-26] MEDS: CEFUROXIME AXETIL 250 MG TABLET PO SCH ×2 (08:23→20:11)
[2017-05-26] MEDS: HYDROXYCHLOROQUINE SULFATE 200 MG TABLET PO SCH ×2 (08:25→20:11)
[2017-05-26] MEDS: predniSONE 1 MG TABLET PO SCH ×2 (08:26→20:11)
[2017-05-26] MEDS: METOPROLOL TARTRATE 50 MG TABLET PO SCH ×2 (08:26→20:11)
[2017-05-26] MEDS: FOLIC ACID 1 MG TABLET PO SCH (08:27)
[2017-05-26] MEDS: CITALOPRAM HYDROBROMIDE 20 MG TABLET PO SCH (08:27)
[2017-05-26] MEDS: ASPIRIN 81 MG CHEW TAB PO SCH (08:27)
[2017-05-26] MEDS: MULTIVITAMIN 1 EACH TABLET PO SCH (08:28)
[2017-05-26] MEDS: CHOLECALCIFEROL 1,000 UNIT TABLET PO SCH (08:28)
[2017-05-26] MEDS: DOCUSATE SODIUM 100 MG CAPSULE PO PRN (08:32)
[2017-05-26] MEDS: ONDANSETRON HCL 4 MG TAB.RAPDIS PO PRN (12:07)
[2017-05-26] MEDS ORDERED: DIGOXIN 125 MCG TABLET PO ONE (14:45)
[2017-05-26] MEDS ORDERED: DIGOXIN 125 MCG TABLET PO SCH (15:00)
[2017-05-26] MEDS ORDERED: DILTIAZEM HCL 120 MG CAP.ER.24H PO SCH ×2 (21:00)
[2017-05-27] MEDS: LEVALBUTEROL HCL 1.25 MG/3 ML AMPUL.NEB NEB SCH ×4 (00:58→18:05)
[2017-05-27] MEDS: PANTOPRAZOLE SODIUM 40 MG TABLET PO SCH (06:00)
[2017-05-27] MEDS: DILTIAZEM HCL 180 MG CAP.ER.24H PO SCH (08:36)
[2017-05-27] MEDS: ASPIRIN 81 MG CHEW TAB PO SCH (08:36)
[2017-05-27] MEDS: CEFUROXIME AXETIL 250 MG TABLET PO SCH ×2 (08:37→19:38)
[2017-05-27] MEDS: CITALOPRAM HYDROBROMIDE 20 MG TABLET PO SCH (08:37)
[2017-05-27] MEDS: FOLIC ACID 1 MG TABLET PO SCH (08:38)
[2017-05-27] MEDS: predniSONE 1 MG TABLET PO SCH ×2 (08:38→19:38)
[2017-05-27] MEDS: METOPROLOL TARTRATE 50 MG TABLET PO SCH ×2 (08:39→19:38)
[2017-05-27] MEDS: MULTIVITAMIN 1 EACH TABLET PO SCH (08:39)
[2017-05-27] MEDS: CHOLECALCIFEROL 1,000 UNIT TABLET PO SCH (08:39)
[2017-05-27] MEDS: HYDROXYCHLOROQUINE SULFATE 200 MG TABLET PO SCH ×2 (08:39→19:40)
[2017-05-27] MEDS ORDERED: DIGOXIN 125 MCG TABLET PO SCH (12:00)
[2017-05-27] MEDS: DIGOXIN 125 MCG TABLET PO SCH (12:55)
[2017-05-27] MEDS: ACETAMINOPHEN WITH CODEINE 300MG/30MG TABLET PO PRN ×2 (12:58→19:37)
[2017-05-27] MEDS: DILTIAZEM HCL 120 MG CAP.ER.24H PO SCH (19:38)
[2017-05-27] MEDS: DOCUSATE SODIUM 100 MG CAPSULE PO PRN (22:33)
[2017-05-28] MEDS: LEVALBUTEROL HCL 1.25 MG/3 ML AMPUL.NEB NEB SCH ×4 (00:10→19:28)
[2017-05-28] MEDS: PANTOPRAZOLE SODIUM 40 MG TABLET PO SCH (06:05)
[2017-05-28] MEDS: CEFUROXIME AXETIL 250 MG TABLET PO SCH ×2 (08:31→19:44)
[2017-05-28] MEDS: HYDROXYCHLOROQUINE SULFATE 200 MG TABLET PO SCH ×2 (08:32→19:48)
[2017-05-28] MEDS: predniSONE 1 MG TABLET PO SCH ×2 (08:32→19:44)
[2017-05-28] MEDS: METOPROLOL TARTRATE 50 MG TABLET PO SCH ×2 (08:34→19:47)
[2017-05-28] MEDS: FOLIC ACID 1 MG TABLET PO SCH (08:35)
[2017-05-28] MEDS: ASPIRIN 81 MG CHEW TAB PO SCH (08:35)
[2017-05-28] MEDS: CITALOPRAM HYDROBROMIDE 20 MG TABLET PO SCH (08:35)
[2017-05-28] MEDS: MULTIVITAMIN 1 EACH TABLET PO SCH (08:36)
[2017-05-28] MEDS: CHOLECALCIFEROL 1,000 UNIT TABLET PO SCH (08:36)
[2017-05-28] MEDS: DILTIAZEM HCL 180 MG CAP.ER.24H PO SCH (10:31)
[2017-05-28] MEDS: DIGOXIN 125 MCG TABLET PO SCH (11:37)
[2017-05-28] MEDS: DILTIAZEM HCL 120 MG CAP.ER.24H PO SCH (19:46)
[2017-05-28] MEDS: ACETAMINOPHEN WITH CODEINE 300MG/30MG TABLET PO PRN (19:47)
[2017-05-29] MEDS: LEVALBUTEROL HCL 1.25 MG/3 ML AMPUL.NEB NEB SCH ×4 (00:40→18:36)
[2017-05-29] MEDS: PANTOPRAZOLE SODIUM 40 MG TABLET PO SCH (06:09)
[2017-05-29] MEDS: ASPIRIN 81 MG CHEW TAB PO SCH (08:01)
[2017-05-29] MEDS: DILTIAZEM HCL 180 MG CAP.ER.24H PO SCH (08:02)
[2017-05-29] MEDS: CEFUROXIME AXETIL 250 MG TABLET PO SCH ×2 (08:02→19:06)
[2017-05-29] MEDS: FOLIC ACID 1 MG TABLET PO SCH (08:03)
[2017-05-29] MEDS: CITALOPRAM HYDROBROMIDE 20 MG TABLET PO SCH (08:03)
[2017-05-29] MEDS: predniSONE 1 MG TABLET PO SCH ×2 (08:03→19:06)
[2017-05-29] MEDS: METOPROLOL TARTRATE 50 MG TABLET PO SCH ×2 (08:04→19:07)
[2017-05-29] MEDS: CHOLECALCIFEROL 1,000 UNIT TABLET PO SCH (08:05)
[2017-05-29] MEDS: HYDROXYCHLOROQUINE SULFATE 200 MG TABLET PO SCH ×2 (08:05→19:08)
[2017-05-29] MEDS: MULTIVITAMIN 1 EACH TABLET PO SCH (08:05)
[2017-05-29] MEDS: DIGOXIN 125 MCG TABLET PO SCH (12:04)
[2017-05-29] MEDS: ONDANSETRON HCL 4 MG TAB.RAPDIS PO PRN (12:35)
[2017-05-29] MEDS: ACETAMINOPHEN WITH CODEINE 300MG/30MG TABLET PO PRN (17:44)
[2017-05-29] MEDS: DILTIAZEM HCL 120 MG CAP.ER.24H PO SCH (19:06)
[2017-05-30] MEDS: LEVALBUTEROL HCL 1.25 MG/3 ML AMPUL.NEB NEB SCH ×5 (04:22→23:57)
[2017-05-30] MEDS: PANTOPRAZOLE SODIUM 40 MG TABLET PO SCH (06:16)
[2017-05-30] MEDS: ACETAMINOPHEN WITH CODEINE 300MG/30MG TABLET PO PRN ×2 (06:16→20:48)
[2017-05-30] MEDS: CEFUROXIME AXETIL 250 MG TABLET PO SCH ×2 (08:09→20:46)
[2017-05-30] MEDS: METOPROLOL TARTRATE 50 MG TABLET PO SCH ×2 (08:10→20:46)
[2017-05-30] MEDS: predniSONE 1 MG TABLET PO SCH ×2 (08:10→20:46)
[2017-05-30] MEDS: HYDROXYCHLOROQUINE SULFATE 200 MG TABLET PO SCH ×2 (08:10→20:48)
[2017-05-30] MEDS: CITALOPRAM HYDROBROMIDE 20 MG TABLET PO SCH (08:11)
[2017-05-30] MEDS: MULTIVITAMIN 1 EACH TABLET PO SCH (08:11)
[2017-05-30] MEDS: FOLIC ACID 1 MG TABLET PO SCH (08:11)
[2017-05-30] MEDS: ASPIRIN 81 MG CHEW TAB PO SCH (08:11)
[2017-05-30] MEDS: DILTIAZEM HCL 180 MG CAP.ER.24H PO SCH (08:12)
[2017-05-30] MEDS: CHOLECALCIFEROL 1,000 UNIT TABLET PO SCH (08:12)
[2017-05-30] MEDS: DIGOXIN 125 MCG TABLET PO SCH (12:10)
[2017-05-30] MEDS: DILTIAZEM HCL 120 MG CAP.ER.24H PO SCH (20:46)
[2017-05-31] MEDS: LEVALBUTEROL HCL 1.25 MG/3 ML AMPUL.NEB NEB SCH ×3 (06:03→18:41)
[2017-05-31] MEDS: PANTOPRAZOLE SODIUM 40 MG TABLET PO SCH (06:03)
[2017-05-31] MEDS: predniSONE 1 MG TABLET PO SCH ×2 (10:08→20:29)
[2017-05-31] MEDS: FOLIC ACID 1 MG TABLET PO SCH (10:09)
[2017-05-31] MEDS: METOPROLOL TARTRATE 50 MG TABLET PO SCH ×2 (10:09→20:27)
[2017-05-31] MEDS: CITALOPRAM HYDROBROMIDE 20 MG TABLET PO SCH (10:10)
[2017-05-31] MEDS: CHOLECALCIFEROL 1,000 UNIT TABLET PO SCH (10:10)
[2017-05-31] MEDS: DILTIAZEM HCL 180 MG CAP.ER.24H PO SCH (10:10)
[2017-05-31] MEDS: ASPIRIN 81 MG CHEW TAB PO SCH (10:10)
[2017-05-31] MEDS: CEFUROXIME AXETIL 250 MG TABLET PO SCH ×2 (10:11→20:34)
[2017-05-31] MEDS: HYDROXYCHLOROQUINE SULFATE 200 MG TABLET PO SCH ×2 (10:11→20:28)
[2017-05-31] MEDS: MULTIVITAMIN 1 EACH TABLET PO SCH (10:11)
[2017-05-31] MEDS: DIGOXIN 125 MCG TABLET PO SCH (13:33)
[2017-05-31] MEDS: DILTIAZEM HCL 120 MG CAP.ER.24H PO SCH (20:27)
[2017-05-31] MEDS: ACETAMINOPHEN WITH CODEINE 300MG/30MG TABLET PO PRN (20:30)
[2017-06-01] MEDS: LEVALBUTEROL HCL 1.25 MG/3 ML AMPUL.NEB NEB SCH ×4 (00:35→17:40)
[2017-06-01] MEDS: PANTOPRAZOLE SODIUM 40 MG TABLET PO SCH (05:00)
[2017-06-01] MEDS: CEFUROXIME AXETIL 250 MG TABLET PO SCH (09:53)
[2017-06-01] MEDS: HYDROXYCHLOROQUINE SULFATE 200 MG TABLET PO SCH ×2 (09:54→20:04)
[2017-06-01] MEDS: ASPIRIN 81 MG CHEW TAB PO SCH (09:55)
[2017-06-01] MEDS: METOPROLOL TARTRATE 50 MG TABLET PO SCH (09:55)
[2017-06-01] MEDS: FOLIC ACID 1 MG TABLET PO SCH (09:56)
[2017-06-01] MEDS: CITALOPRAM HYDROBROMIDE 20 MG TABLET PO SCH (09:56)
[2017-06-01] MEDS: MULTIVITAMIN 1 EACH TABLET PO SCH (09:57)
[2017-06-01] MEDS: CHOLECALCIFEROL 1,000 UNIT TABLET PO SCH (09:57)
[2017-06-01] MEDS: predniSONE 1 MG TABLET PO SCH ×2 (09:59→20:05)
[2017-06-01] MEDS: DILTIAZEM HCL 180 MG CAP.ER.24H PO SCH (10:03)
[2017-06-01] MEDS: DIGOXIN 125 MCG TABLET PO SCH (12:07)
[2017-06-01] MEDS: METOPROLOL TARTRATE 25 MG TABLET PO SCH (20:04)
[2017-06-01] MEDS: DILTIAZEM HCL 120 MG CAP.ER.24H PO SCH (20:04)
[2017-06-01] MEDS: ACETAMINOPHEN WITH CODEINE 300MG/30MG TABLET PO PRN (20:04)
[2017-06-02] MEDS: LEVALBUTEROL HCL 1.25 MG/3 ML AMPUL.NEB NEB SCH ×4 (00:25→16:20)
[2017-06-02] MEDS: PANTOPRAZOLE SODIUM 40 MG TABLET PO SCH (06:09)
[2017-06-02] MEDS: predniSONE 1 MG TABLET PO SCH ×2 (08:50→20:21)
[2017-06-02] MEDS: ACETAMINOPHEN WITH CODEINE 300MG/30MG TABLET PO PRN (08:51)
[2017-06-02] MEDS: ASPIRIN 81 MG CHEW TAB PO SCH (08:52)
[2017-06-02] MEDS: CITALOPRAM HYDROBROMIDE 20 MG TABLET PO SCH (08:53)
[2017-06-02] MEDS: MULTIVITAMIN 1 EACH TABLET PO SCH (08:54)
[2017-06-02] MEDS: FOLIC ACID 1 MG TABLET PO SCH (08:54)
[2017-06-02] MEDS: CHOLECALCIFEROL 1,000 UNIT TABLET PO SCH (08:55)
[2017-06-02] MEDS: DILTIAZEM HCL 180 MG CAP.ER.24H PO SCH (08:56)
[2017-06-02] MEDS: METOPROLOL TARTRATE 25 MG TABLET PO SCH ×2 (08:56→20:22)
[2017-06-02] MEDS: HYDROXYCHLOROQUINE SULFATE 200 MG TABLET PO SCH ×2 (08:58→20:22)
[2017-06-02] MEDS: DIGOXIN 125 MCG TABLET PO SCH (11:27)
[2017-06-02] MEDS: DILTIAZEM HCL 120 MG CAP.ER.24H PO SCH (20:21)
[2017-06-03] MEDS: LEVALBUTEROL HCL 1.25 MG/3 ML AMPUL.NEB NEB SCH ×4 (00:15→18:08)
[2017-06-03] MEDS: PANTOPRAZOLE SODIUM 40 MG TABLET PO SCH (06:09)
[2017-06-03] MEDS: DILTIAZEM HCL 180 MG CAP.ER.24H PO SCH (08:52)
[2017-06-03] MEDS: ASPIRIN 81 MG CHEW TAB PO SCH (08:52)
[2017-06-03] MEDS: CITALOPRAM HYDROBROMIDE 20 MG TABLET PO SCH (08:53)
[2017-06-03] MEDS: predniSONE 1 MG TABLET PO SCH ×2 (08:54→20:49)
[2017-06-03] MEDS: METOPROLOL TARTRATE 25 MG TABLET PO SCH ×2 (08:55→20:50)
[2017-06-03] MEDS: FOLIC ACID 1 MG TABLET PO SCH (08:55)
[2017-06-03] MEDS: MULTIVITAMIN 1 EACH TABLET PO SCH (08:56)
[2017-06-03] MEDS: CHOLECALCIFEROL 1,000 UNIT TABLET PO SCH (08:56)
[2017-06-03] MEDS: HYDROXYCHLOROQUINE SULFATE 200 MG TABLET PO SCH ×2 (09:01→20:50)
[2017-06-03] MEDS: ACETAMINOPHEN WITH CODEINE 300MG/30MG TABLET PO PRN ×2 (09:14→20:54)
[2017-06-03 11:02] LABS: BASOPHILS % 0.7 (0.0-1.5); EOSINOPHILS % 2.4 % (0.0-6.8); MEAN CORPUSCULAR HEMOGLOBIN 25.7 pg (28.0-34.0); MEAN CORPUSCULAR VOLUME 90.4 fl (80.0-100.0); MONOCYTES % 4.4 % (0.0-11.0); NEUTROPHILS # 8.7 # k/uL (1.4-7.7)
[2017-06-03] MEDS: DIGOXIN 125 MCG TABLET PO SCH (11:29)
[2017-06-03] MEDS: DILTIAZEM HCL 120 MG CAP.ER.24H PO SCH (20:49)
[2017-06-04] MEDS: LEVALBUTEROL HCL 1.25 MG/3 ML AMPUL.NEB NEB SCH ×3 (01:06→13:26)
[2017-06-04] MEDS: PANTOPRAZOLE SODIUM 40 MG TABLET PO SCH (06:28)
[2017-06-04] MEDS: ACETAMINOPHEN WITH CODEINE 300MG/30MG TABLET PO PRN ×2 (08:36→21:53)
[2017-06-04] MEDS: ASPIRIN 81 MG CHEW TAB PO SCH (08:37)
[2017-06-04] MEDS: DILTIAZEM HCL 180 MG CAP.ER.24H PO SCH (08:37)
[2017-06-04] MEDS: predniSONE 1 MG TABLET PO SCH ×2 (08:38→20:28)
[2017-06-04] MEDS: CITALOPRAM HYDROBROMIDE 20 MG TABLET PO SCH (08:38)
[2017-06-04] MEDS: METOPROLOL TARTRATE 25 MG TABLET PO SCH ×2 (08:39→20:30)
[2017-06-04] MEDS: FOLIC ACID 1 MG TABLET PO SCH (08:39)
[2017-06-04] MEDS: CHOLECALCIFEROL 1,000 UNIT TABLET PO SCH (08:40)
[2017-06-04] MEDS: HYDROXYCHLOROQUINE SULFATE 200 MG TABLET PO SCH ×2 (08:40→20:30)
[2017-06-04] MEDS: MULTIVITAMIN 1 EACH TABLET PO SCH (08:40)
[2017-06-04] MEDS: DIGOXIN 125 MCG TABLET PO SCH (12:45)
[2017-06-04] MEDS: DILTIAZEM HCL 120 MG CAP.ER.24H PO SCH (20:27)
[2017-06-05] MEDS: ACETAMINOPHEN WITH CODEINE 300MG/30MG TABLET PO PRN ×2 (06:27→20:35)
[2017-06-05] MEDS: PANTOPRAZOLE SODIUM 40 MG TABLET PO SCH (06:29)
[2017-06-05] MEDS: ASPIRIN 81 MG CHEW TAB PO SCH (07:55)
[2017-06-05] MEDS: DILTIAZEM HCL 180 MG CAP.ER.24H PO SCH (07:55)
[2017-06-05] MEDS: CITALOPRAM HYDROBROMIDE 20 MG TABLET PO SCH (07:55)
[2017-06-05] MEDS: predniSONE 1 MG TABLET PO SCH ×2 (07:56→20:27)
[2017-06-05] MEDS: FOLIC ACID 1 MG TABLET PO SCH (07:57)
[2017-06-05] MEDS: MULTIVITAMIN 1 EACH TABLET PO SCH (07:58)
[2017-06-05] MEDS: METOPROLOL TARTRATE 25 MG TABLET PO SCH ×2 (07:58→20:27)
[2017-06-05] MEDS: HYDROXYCHLOROQUINE SULFATE 200 MG TABLET PO SCH ×2 (07:58→20:27)
[2017-06-05] MEDS: CHOLECALCIFEROL 1,000 UNIT TABLET PO SCH (07:58)
[2017-06-05] MEDS: DIGOXIN 125 MCG TABLET PO SCH (12:32)
[2017-06-05] MEDS: DILTIAZEM HCL 120 MG CAP.ER.24H PO SCH (20:27)
[2017-06-06] MEDS: PANTOPRAZOLE SODIUM 40 MG TABLET PO SCH (06:03)
[2017-06-06] MEDS: ACETAMINOPHEN WITH CODEINE 300MG/30MG TABLET PO PRN ×3 (06:04→20:42)
[2017-06-06] MEDS: ASPIRIN 81 MG CHEW TAB PO SCH (08:25)
[2017-06-06] MEDS: DILTIAZEM HCL 180 MG CAP.ER.24H PO SCH (08:25)
[2017-06-06] MEDS: CITALOPRAM HYDROBROMIDE 20 MG TABLET PO SCH (08:25)
[2017-06-06] MEDS: FOLIC ACID 1 MG TABLET PO SCH (08:26)
[2017-06-06] MEDS: predniSONE 1 MG TABLET PO SCH ×2 (08:26→20:42)
[2017-06-06] MEDS: CHOLECALCIFEROL 1,000 UNIT TABLET PO SCH (08:27)
[2017-06-06] MEDS: MULTIVITAMIN 1 EACH TABLET PO SCH (08:27)
[2017-06-06] MEDS: METOPROLOL TARTRATE 25 MG TABLET PO SCH ×2 (08:27→20:43)
[2017-06-06] MEDS: HYDROXYCHLOROQUINE SULFATE 200 MG TABLET PO SCH ×2 (08:27→20:43)
[2017-06-06] MEDS: DIGOXIN 125 MCG TABLET PO SCH (11:49)
[2017-06-06] MEDS: DILTIAZEM HCL 120 MG CAP.ER.24H PO SCH (20:42)
[2017-06-07] MEDS ORDERED: METOPROLOL TARTRATE 50 MG TABLET ONE (00:38)
[2017-06-07] MEDS: PANTOPRAZOLE SODIUM 40 MG TABLET PO SCH (06:20)
[2017-06-07] MEDS: ASPIRIN 81 MG CHEW TAB PO SCH (09:16)
[2017-06-07] MEDS: CITALOPRAM HYDROBROMIDE 20 MG TABLET PO SCH (09:17)
[2017-06-07] MEDS: DILTIAZEM HCL 180 MG CAP.ER.24H PO SCH (09:17)
[2017-06-07] MEDS: predniSONE 1 MG TABLET PO SCH ×2 (09:18→20:11)
[2017-06-07] MEDS: FOLIC ACID 1 MG TABLET PO SCH (09:19)
[2017-06-07] MEDS: CHOLECALCIFEROL 1,000 UNIT TABLET PO SCH (09:20)
[2017-06-07] MEDS: MULTIVITAMIN 1 EACH TABLET PO SCH (09:20)
[2017-06-07] MEDS: HYDROXYCHLOROQUINE SULFATE 200 MG TABLET PO SCH ×2 (09:20→20:11)
[2017-06-07] MEDS: METOPROLOL TARTRATE 25 MG TABLET PO SCH ×2 (09:20→20:11)
[2017-06-07] MEDS: ACETAMINOPHEN WITH CODEINE 300MG/30MG TABLET PO PRN ×2 (09:28→22:08)
[2017-06-07] MEDS: DIGOXIN 125 MCG TABLET PO SCH (12:01)
[2017-06-07] MEDS: DILTIAZEM HCL 120 MG CAP.ER.24H PO SCH (20:11)
[2017-06-08] MEDS: PANTOPRAZOLE SODIUM 40 MG TABLET PO SCH (06:22)
[2017-06-08] MEDS: predniSONE 1 MG TABLET PO SCH ×2 (09:37→20:39)
[2017-06-08] MEDS: CITALOPRAM HYDROBROMIDE 20 MG TABLET PO SCH (09:39)
[2017-06-08] MEDS: ASPIRIN 81 MG CHEW TAB PO SCH (09:39)
[2017-06-08] MEDS: FOLIC ACID 1 MG TABLET PO SCH (09:40)
[2017-06-08] MEDS: MULTIVITAMIN 1 EACH TABLET PO SCH (09:41)
[2017-06-08] MEDS: CHOLECALCIFEROL 1,000 UNIT TABLET PO SCH (09:41)
[2017-06-08] MEDS: METOPROLOL TARTRATE 25 MG TABLET PO SCH ×2 (09:42→20:42)
[2017-06-08] MEDS: DILTIAZEM HCL 180 MG CAP.ER.24H PO SCH (09:48)
[2017-06-08] MEDS: DIGOXIN 125 MCG TABLET PO SCH (12:02)
[2017-06-08] MEDS: HYDROXYCHLOROQUINE SULFATE 200 MG TABLET PO SCH ×2 (12:02→20:39)
[2017-06-08] MEDS: ACETAMINOPHEN WITH CODEINE 300MG/30MG TABLET PO PRN ×2 (12:22→20:42)
[2017-06-08] MEDS: DILTIAZEM HCL 120 MG CAP.ER.24H PO SCH (20:37)
[2017-06-09] MEDS: PANTOPRAZOLE SODIUM 40 MG TABLET PO SCH (06:31)
[2017-06-09] MEDS: DILTIAZEM HCL 180 MG CAP.ER.24H PO SCH (08:33)
[2017-06-09] MEDS: ASPIRIN 81 MG CHEW TAB PO SCH (08:33)
[2017-06-09] MEDS: predniSONE 1 MG TABLET PO SCH (08:34)
[2017-06-09] MEDS: CITALOPRAM HYDROBROMIDE 20 MG TABLET PO SCH (08:34)
[2017-06-09] MEDS: FOLIC ACID 1 MG TABLET PO SCH (08:36)
[2017-06-09] MEDS: METOPROLOL TARTRATE 25 MG TABLET PO SCH (08:36)
[2017-06-09] MEDS: MULTIVITAMIN 1 EACH TABLET PO SCH (08:37)
[2017-06-09] MEDS: CHOLECALCIFEROL 1,000 UNIT TABLET PO SCH (08:37)
[2017-06-09] MEDS: HYDROXYCHLOROQUINE SULFATE 200 MG TABLET PO SCH (08:37)
--- NOTE | 2017-06-09 11:00 | Discharge Summary ---
Discharge Summary - Discharge Sumary History of Present Illness: Patient is a 76-year-old white female who several days prior to admission to acute care develop some increasing shortness of breath dyspnea. Patient was subsequently admitted to [facility]. Patient did appear to have an infiltrate on her chest x-ray with a mild leukocytosis. This also noted the patient had an elevated BNP and d-dimer. CT scan could not be done secondary to the patient's elevated kidney functions. Patient did develop some increasing shortness of breath dyspnea was subsequently transferred to [facility]. Patient was treated for a pneumonia. During her stay at [facility] patient did develop atrial fibrillation. At the time of dismissal patient continued to be in atrial fibrillation with an occasional rapid ventricular response.Patient is become a week and debilitated during her hospital stay. It was felt that the patient would benefit from further and patient physical and occupational therapy and and SNF setting. Patient was subsequently transferred to this institution for physical and occupational therapy. It is hoped that the patient will return home. Condition at Discharge: Stable Home Medications: Ambulatory Orders Medication Instructions Recorded Cyanocobalamin [Vitamin B-12] 1,000 mcg SUBCUT MONTH 09/30/16 Metformin HCl [Glucophage] 1 tab PO DAILY 09/30/16 Acetaminophen [Tylenol] 325 mg PO Q6 PRN 05/22/17 Aspirin [Darnell] 81 mg PO DAILY 05/22/17 Bisacodyl [Dulcolax] 5 mg PO DAILY PRN 05/22/17 Cholecalciferol (Vitamin D3) 05/22/17 [Vitamin D3] Docusate Sodium [Colace] 100 mg PO DAILY PRN 05/22/17 Multivitamin [Daily Multiple 1 each PO DAILY 05/22/17 Vitamin] predniSONE [Deltasone] 5 mg PO BID 05/22/17 Digoxin [Lanoxin] 125 mcg PO QD #30 tablet 06/09/17 Diltiazem HCl [Tiazac] 300 mg PO D #30 capsule.er 06/09/17 Consultations this Visit: None Procedures this Visit: None Allergies/Adverse Reactions: Allergies Allergy/AdvReac Type Severity Reaction Status Date / Time levofloxacin [From Levaquin] Allergy Rash Verified 09/30/16 08:31 tramadol AdvReac Vomiting Verified 09/30/16 08:31 Discharge Summary: Patient was started on physical and occupational therapy. Patient did participate well and is highly motivated to participate in the therapeutic. Patient's ability to ambulate was somewhat hampered by her atrial fibrillation with rapid ventricular response. Once this would better control patient seem to do better. At the time of dismissal patient was ambulating with a walker. Patient was transferred. Patient was deemed to be still be an increase fall risk and was felt that she would benefit from further occupational physical therapy at home. Patient atrial fibrillation was not well-controlled on admission. Pulse rate continue to be in the 130s to 140s most to the time. Patient Cardizem dose was increased up. This still did not control her rate adequately. Patient was subsequently started on digoxin. Patient did well with this. Patient did have some mild hypotension with the increase Cardizem dose and this was decreased slightly. Patient type II diabetes mellitus remains stable without any hyper or hypoglycemic episodes. Patient pneumonia symptoms improved. Patient did finish the course of antibiotic therapy. At the time of dismissal was felt that the patient could be discharged home in stable condition with home health services. - Final Diagnosis (1) Gait disturbance Problems: Improved with PT and OT. (2) Atrial fibrillation Problems: Improved, still in AFib but rate is controlled better (3) Pneumonia Problems: resolved Right or Left: Left (resolved) (4) Diabetes type 2 with atherosclerosis of arteries of extremities Problems: stable
[2017-06-09] MEDS: DIGOXIN 125 MCG TABLET PO SCH (12:43)
[2017-06-09 13:40] VITALS: BP 144/74
--- NOTE | 2017-06-13 08:45 | Inpatient Progress Note ---
Subjective - Required Recertification Statement I anticipate X number of days because-include discharge plan: 14 - Review of Systems Events since last encounter: Patient continued to have some problems with tachycardia associated with her atrial fibrillation. Patient pulse rate has been in the hundred and 30s fairly consistently. Patient denies any chest pain chest pressure shortness of breath. Patient is participating with physical therapy well. Diabetes mellitus has been stable without any hypoglycemic episodes. Patient continued to have a mild nonproductive cough associated with resolving pneumonia. Patient continued to have some mild shortness of breath dyspnea on exertion. General: Denies: Chills, Night Sweats Pulmonary: Cough. Denies: Dyspnea, Pleuritic Chest Pain Cardiovascular: Palpitations. Denies: Chest Pain, Orthopnea, Paroxysmal Noc. Dyspnea, Edema Objective - Exam Vitals and I&O: Vital Signs Temp 97.3 F L 06/09/17 09:00 Pulse 56 L 06/09/17 09:00 Resp 17 06/09/17 09:00 BP 137/68 06/09/17 09:00 Pulse Ox 97 06/09/17 09:00 General: Alert, Oriented to Person, Oriented to Place, Oriented to Time Neck: Supple, No JVD Lungs: Normal air movement, Speaks full Sentences, Rhonchi (course bilaterally, clearing) Cardiovascular: Normal S1, Normal S2, Irregularly Irregular, Tachycardia, Atrial Fib Abdomen: Normal bowel sounds, Soft, No tenderness, No masses Extremities: No edema Skin: Normal, [place], Warm, Dry Neurological: Normal gait, Normal speech, Strength Equal Bilat - Results Results: Laboratory Results WBC 10.60 K/ul (4.00-12.00) 06/03/17 10:50 RBC 3.39 M/ul (3.90-5.20) L 06/03/17 10:50 Hgb 8.7 g/dL (12.0-16.0) L 06/03/17 10:50 Hct 30.7 % (34.5-46.5) L 06/03/17 10:50 MCV 90.4 fl (80.0-100.0) 06/03/17 10:50 MCH 25.7 pg (28.0-34.0) L 06/03/17 10:50 MCHC 28.4 g/dL (30.0-36.0) L 06/03/17 10:50 RDW 13.5 % (11.3-14.3) 06/03/17 10:50 Plt Count 285 K/mm3 (130-400) 06/03/17 10:50 Neut % (Auto) 81.7 % (39.0-79.0) H 06/03/17 10:50 Lymph % (Auto) 9.0 % (16.0-50.0) L 06/03/17 10:50 [place] % (Auto) 4.4 % (0.0-11.0) 06/03/17 10:50 Eos % (Auto) 2.4 % (0.0-6.8) 06/03/17 10:50 Baso % (Auto) 0.7 (0.0-1.5) 06/03/17 10:50 Neut # (Auto) 8.7 # k/uL (1.4-7.7) H 06/03/17 10:50 Lymph # (Auto) 1.0 # k/uL (0.6-4.0) 06/03/17 10:50 [place] # (Auto) 0.5 # k/uL (0.0-0.9) 06/03/17 10:50 Eos # (Auto) 0.3 # k/uL (0.0-0.6) 06/03/17 10:50 Baso # (Auto) 0.1 # k/uL (0.0-0.5) 06/03/17 10:50 Reactive Lymphs % 1.8 % (0.0-5.0) 06/03/17 10:50 Reactive Lymphs # 0.2 # k/uL (0.0-0.8) 06/03/17 10:50 Sodium 133 mmol/L (137-145) L 05/25/17 06:30 Potassium 4.4 mmol/L (3.5-5.1) 05/25/17 06:30 Chloride 95 mmol/L (98-107) L 05/25/17 06:30 Carbon Dioxide 31 mmol/L (22-30) H 05/25/17 06:30 BUN 31 mg/dL (7-17) H 05/25/17 06:30 Creatinine 0.90 mg/dL (0.52-1.04) 05/25/17 06:30 Estimated Creat Clear 86 05/25/17 06:30 Est GFR ( Amer) > 60 (60-) 05/25/17 06:30 Est GFR (Non-Af Amer) > 60 (60-) 05/25/17 06:30 Glucose 144 mg/dL (74-106) H 05/25/17 06:30 Calcium 8.8 mg/dL (8.4-10.2) 05/25/17 06:30 Total Bilirubin 0.3 mg/dL (0.2-1.3) 05/25/17 06:30 AST 25 U/L (15-46) 05/25/17 06:30 ALT 42 U/L (13-69) 05/25/17 06:30 Alkaline Phosphatase 86 U/L (38-126) 05/25/17 06:30 Total Protein 6.2 g/dL (6.3-8.2) L 05/25/17 06:30 Albumin 3.0 g/dL (3.5-5.0) L 05/25/17 06:30 Digoxin 1.1 ng/mL (0.5-2.0) 05/29/17 06:35 Assessment/Plan - Assessment/Plan (1) Gait disturbance Status: Acute Assessment: improving with PT and OT (2) Atrial fibrillation Status: Acute Assessment: I will go ahead and adjust patient is Cardizem does to see if we can get better control of her heart rate. (3) Pneumonia Status: Acute Qualifiers: Pneumonia type: due to unspecified organism Laterality: right Lung location: unspecified part of lung Qualified Code(s): J18.9 - Pneumonia, unspecified organism Assessment: resolving (4) Diabetes type 2 with atherosclerosis of arteries of extremities Status: Acute Assessment: stable, continue present treatment.
--- NOTE | 2017-06-13 08:46 | Inpatient Progress Note ---
Subjective - Required Recertification Statement I anticipate X number of days because-include discharge plan: 14 - Review of Systems Events since last encounter: Patient continues to have some tachycardia associated with her atrial fibrillation. Patient Cardizem does have been adjusted without much improvement in her heart rate. Patient denies any chest discomfort. Patient is not had any orthostatic symptoms. Patient does seem to fatigue easily been trying to do physical and occupational therapy. Diabetes mellitus has been stable without any hyper or hypoglycemic episodes. Patient breathing status continues to improve. Patient has been having bowel movements. Appetite is fair. General: Denies: Chills Pulmonary: Cough. Denies: Dyspnea, Pleuritic Chest Pain Cardiovascular: Palpitations. Denies: Chest Pain, Orthopnea, Light Headedness Gastrointestinal: Denies: Constipation Objective - Exam Vitals and I&O: Vital Signs Temp 97.3 F L 06/09/17 09:00 Pulse 56 L 06/09/17 09:00 Resp 17 06/09/17 09:00 BP 137/68 06/09/17 09:00 Pulse Ox 97 06/09/17 09:00 General: Alert, Oriented to Person, Oriented to Place, Oriented to Time, Cooperative Neck: Supple, No JVD, No thyromegaly Lungs: Clear to auscultation, Normal air movement, Speaks full Sentences. No: Wheezes, Rales, Rhonchi Cardiovascular: Normal S1, Normal S2, Irregularly Irregular, Atrial Fib Abdomen: Normal bowel sounds, Soft, No tenderness, No hepatospenomegaly, No masses Extremities: No clubbing, No cyanosis Skin: Normal, [place], Warm, Dry Neurological: Normal speech, Strength Equal Bilat, Sensation intact. No: Normal gait Psych/Mental Status: Mental status NL, Mood NL, Appropriate Affect, Intact Judgment - Results Results: Laboratory Results WBC 10.60 K/ul (4.00-12.00) 06/03/17 10:50 RBC 3.39 M/ul (3.90-5.20) L 06/03/17 10:50 Hgb 8.7 g/dL (12.0-16.0) L 06/03/17 10:50 Hct 30.7 % (34.5-46.5) L 06/03/17 10:50 MCV 90.4 fl (80.0-100.0) 06/03/17 10:50 MCH 25.7 pg (28.0-34.0) L 06/03/17 10:50 MCHC 28.4 g/dL (30.0-36.0) L 06/03/17 10:50 RDW 13.5 % (11.3-14.3) 06/03/17 10:50 Plt Count 285 K/mm3 (130-400) 06/03/17 10:50 Neut % (Auto) 81.7 % (39.0-79.0) H 06/03/17 10:50 Lymph % (Auto) 9.0 % (16.0-50.0) L 06/03/17 10:50 [place] % (Auto) 4.4 % (0.0-11.0) 06/03/17 10:50 Eos % (Auto) 2.4 % (0.0-6.8) 06/03/17 10:50 Baso % (Auto) 0.7 (0.0-1.5) 06/03/17 10:50 Neut # (Auto) 8.7 # k/uL (1.4-7.7) H 06/03/17 10:50 Lymph # (Auto) 1.0 # k/uL (0.6-4.0) 06/03/17 10:50 [place] # (Auto) 0.5 # k/uL (0.0-0.9) 06/03/17 10:50 Eos # (Auto) 0.3 # k/uL (0.0-0.6) 06/03/17 10:50 Baso # (Auto) 0.1 # k/uL (0.0-0.5) 06/03/17 10:50 Reactive Lymphs % 1.8 % (0.0-5.0) 06/03/17 10:50 Reactive Lymphs # 0.2 # k/uL (0.0-0.8) 06/03/17 10:50 Sodium 133 mmol/L (137-145) L 05/25/17 06:30 Potassium 4.4 mmol/L (3.5-5.1) 05/25/17 06:30 Chloride 95 mmol/L (98-107) L 05/25/17 06:30 Carbon Dioxide 31 mmol/L (22-30) H 05/25/17 06:30 BUN 31 mg/dL (7-17) H 05/25/17 06:30 Creatinine 0.90 mg/dL (0.52-1.04) 05/25/17 06:30 Estimated Creat Clear 86 05/25/17 06:30 Est GFR ( Amer) > 60 (60-) 05/25/17 06:30 Est GFR (Non-Af Amer) > 60 (60-) 05/25/17 06:30 Glucose 144 mg/dL (74-106) H 05/25/17 06:30 Calcium 8.8 mg/dL (8.4-10.2) 05/25/17 06:30 Total Bilirubin 0.3 mg/dL (0.2-1.3) 05/25/17 06:30 AST 25 U/L (15-46) 05/25/17 06:30 ALT 42 U/L (13-69) 05/25/17 06:30 Alkaline Phosphatase 86 U/L (38-126) 05/25/17 06:30 Total Protein 6.2 g/dL (6.3-8.2) L 05/25/17 06:30 Albumin 3.0 g/dL (3.5-5.0) L 05/25/17 06:30 Digoxin 1.1 ng/mL (0.5-2.0) 05/29/17 06:35 Assessment/Plan - Assessment/Plan (1) Gait disturbance Status: Acute Assessment: Improving with physical and occupational therapy. (2) Atrial fibrillation Status: Acute Assessment: Patient atrial fibrillation continues to lock to be well-controlled. I have talked with Dr. Rivera's office and will start digoxin. Will continue to monitor patient cardiac status and blood pressure. Patient has been mildly hypotensive since increasing the patient Cardizem. (3) Pneumonia Status: Acute Qualifiers: Pneumonia type: due to unspecified organism Laterality: right Lung location: unspecified part of lung Qualified Code(s): J18.9 - Pneumonia, unspecified organism Assessment: resloving (4) Diabetes type 2 with atherosclerosis of arteries of extremities Status: Acute Assessment: stable on home medications
--- NOTE | 2017-06-13 08:47 | Inpatient Progress Note ---
Subjective - Required Recertification Statement I anticipate X number of days because-include discharge plan: 5 - Review of Systems Events since last encounter: Patient continues to improve. Patient's amatory ability has improved since we' ve got her atrial fibrillation under better control. Patient is walking with the aid of a walker at this time. His transferring fairly well. It does appear that the patient will need some home health services once discharged. Patient diabetes mellitus has been stable without any hyper or hypoglycemic episodes. Patient denies any breathing difficulties at this time. Objective - Exam Vitals and I&O: Vital Signs Temp 97.3 F L 06/09/17 09:00 Pulse 56 L 06/09/17 09:00 Resp 17 06/09/17 09:00 BP 137/68 06/09/17 09:00 Pulse Ox 97 06/09/17 09:00 General: Alert, Oriented to Person, Oriented to Place, Oriented to Time, Cooperative Neck: Supple, No JVD, No thyromegaly Lungs: Clear to auscultation, Normal air movement, Speaks full Sentences Cardiovascular: Normal S1, Normal S2, No murmurs, Atrial Fib Abdomen: Normal bowel sounds, Soft, No tenderness Extremities: No clubbing, No cyanosis, Other (trace pedal edema) Skin: Normal, [place], Warm, Dry Psych/Mental Status: Mental status NL, Mood NL, Appropriate Affect, Intact Judgment - Results Results: Laboratory Results WBC 10.60 K/ul (4.00-12.00) 06/03/17 10:50 RBC 3.39 M/ul (3.90-5.20) L 06/03/17 10:50 Hgb 8.7 g/dL (12.0-16.0) L 06/03/17 10:50 Hct 30.7 % (34.5-46.5) L 06/03/17 10:50 MCV 90.4 fl (80.0-100.0) 06/03/17 10:50 MCH 25.7 pg (28.0-34.0) L 06/03/17 10:50 MCHC 28.4 g/dL (30.0-36.0) L 06/03/17 10:50 RDW 13.5 % (11.3-14.3) 06/03/17 10:50 Plt Count 285 K/mm3 (130-400) 06/03/17 10:50 Neut % (Auto) 81.7 % (39.0-79.0) H 06/03/17 10:50 Lymph % (Auto) 9.0 % (16.0-50.0) L 06/03/17 10:50 [place] % (Auto) 4.4 % (0.0-11.0) 06/03/17 10:50 Eos % (Auto) 2.4 % (0.0-6.8) 06/03/17 10:50 Baso % (Auto) 0.7 (0.0-1.5) 06/03/17 10:50 Neut # (Auto) 8.7 # k/uL (1.4-7.7) H 06/03/17 10:50 Lymph # (Auto) 1.0 # k/uL (0.6-4.0) 06/03/17 10:50 [place] # (Auto) 0.5 # k/uL (0.0-0.9) 06/03/17 10:50 Eos # (Auto) 0.3 # k/uL (0.0-0.6) 06/03/17 10:50 Baso # (Auto) 0.1 # k/uL (0.0-0.5) 06/03/17 10:50 Reactive Lymphs % 1.8 % (0.0-5.0) 06/03/17 10:50 Reactive Lymphs # 0.2 # k/uL (0.0-0.8) 06/03/17 10:50 Sodium 133 mmol/L (137-145) L 05/25/17 06:30 Potassium 4.4 mmol/L (3.5-5.1) 05/25/17 06:30 Chloride 95 mmol/L (98-107) L 05/25/17 06:30 Carbon Dioxide 31 mmol/L (22-30) H 05/25/17 06:30 BUN 31 mg/dL (7-17) H 05/25/17 06:30 Creatinine 0.90 mg/dL (0.52-1.04) 05/25/17 06:30 Estimated Creat Clear 86 05/25/17 06:30 Est GFR ( Amer) > 60 (60-) 05/25/17 06:30 Est GFR (Non-Af Amer) > 60 (60-) 05/25/17 06:30 Glucose 144 mg/dL (74-106) H 05/25/17 06:30 Calcium 8.8 mg/dL (8.4-10.2) 05/25/17 06:30 Total Bilirubin 0.3 mg/dL (0.2-1.3) 05/25/17 06:30 AST 25 U/L (15-46) 05/25/17 06:30 ALT 42 U/L (13-69) 05/25/17 06:30 Alkaline Phosphatase 86 U/L (38-126) 05/25/17 06:30 Total Protein 6.2 g/dL (6.3-8.2) L 05/25/17 06:30 Albumin 3.0 g/dL (3.5-5.0) L 05/25/17 06:30 Digoxin 1.1 ng/mL (0.5-2.0) 05/29/17 06:35 Assessment/Plan - Assessment/Plan (1) Gait disturbance Status: Acute Assessment: Improving with physical and occupational therapy. Patient will need some further home health services with physical and occupational therapy once discharged. (2) Atrial fibrillation Status: Acute Assessment: Patient rate appeared to be controlled much better at this time. (3) Pneumonia Status: Acute Qualifiers: Pneumonia type: due to unspecified organism Laterality: right Lung location: unspecified part of lung Qualified Code(s): J18.9 - Pneumonia, unspecified organism Assessment: resolved (4) Diabetes type 2 with atherosclerosis of arteries of extremities Status: Acute Assessment: stable
== END 2017-06-09 13:25 | disposition home or self-care (01) | DRG 308 ==
LOC: SOUTH 14:05
PROVIDERS: ADMIT Family Medicine; ATTEND Family Medicine
DX: I48.91 Unspecified atrial fibrillation (principal); J18.9 Pneumonia, unspecified organism; E11.9 Type 2 diabetes mellitus without complications
CPT/HCPCS: 36415; 71020; 80053; 80162; 85025; 93005; 94640; 94760; 97110; 97112; 97116; 97165; 97530; 97535; A9270; J7614

== ENCOUNTER 2017-08-19 12:36 | Outpatient (CLI) | payer MEDICARE, OTHER ==
[2017-08-19 12:44] LABS: BASOPHILS % 0.5 (0.0-1.5); MEAN CORPUSCULAR HEMOGLOBIN 24.3 pg (28.0-34.0); MEAN CORPUSCULAR VOLUME 91.1 fl (80.0-100.0); NEUTROPHILS # 9.7 # k/uL (1.4-7.7)
[2017-08-19 12:57] LABS: eGFR (African) > 60; eGFR (Non-African) > 60
== END 2017-08-19 12:45 ==
LOC: LABRHC 12:36
PROVIDERS: ATTEND Family Medicine
DX: I10 Essential (primary) hypertension (principal); R53.83 Other fatigue; E11.9 Type 2 diabetes mellitus without complications; I48.91 Unspecified atrial fibrillation
CPT/HCPCS: 80053; 80162; 83036; 85025

== ENCOUNTER 2017-08-27 11:47 | Outpatient (CLI) | payer MEDICARE, OTHER | END 2017-08-27 11:50 | LOC: LAB 11:47 | PROVIDERS: ATTEND Family Medicine | DX: Z53.9 Procedure and treatment not carried out, unspecified reason (principal) ==

== ENCOUNTER 2017-08-28 09:11 | Outpatient (CLI) | payer MEDICARE, OTHER ==
[2017-08-28] MEDS ORDERED: SALINE FLUSH 10 ML DISP.SYRIN IVF ONE ×2 (10:18→15:22)
[2017-08-28] MEDS ORDERED: ACETAMINOPHEN 325 MG TABLET ONE (10:51)
[2017-08-28] MEDS ORDERED: diphenhydrAMINE HCL 25 MG TABLET PO ONE (10:51)
[2017-08-28] MEDS ORDERED: 0.9 % SODIUM CHLORIDE 100 ML IV ONE ×2 (10:59→15:22)
[2017-08-28] MEDS ORDERED: FUROSEMIDE 20 MG/2 ML VIAL ONE (15:22)
== END 2017-08-28 09:12 ==
LOC: OUT 09:11
PROVIDERS: ATTEND Family Medicine
DX: D64.9 Anemia, unspecified (principal)
CPT/HCPCS: 36415; 86885; 86900; 86901; 86920; J1940; Q0163; 36430; P9040; S1016

== ENCOUNTER 2017-09-21 14:25 | Inpatient (IN) | payer MEDICARE, OTHER ==
[2017-09-21] MEDS ORDERED: BISACODYL 5 MG TABLET.DR PO PRN (15:35)
[2017-09-21] MEDS ORDERED: DOCUSATE SODIUM 100 MG CAPSULE PO PRN (15:35)
[2017-09-21 15:58] VITALS: BMI 33.5
[2017-09-21] MEDS: HYDROXYCHLOROQUINE SULFATE 200 MG TABLET PO SCH ×2 (16:42→20:38)
[2017-09-21] MEDS: DIGOXIN 125 MCG TABLET PO SCH (16:42)
[2017-09-21] MEDS: CEFDINIR 300 MG CAPSULE PO SCH ×2 (16:42→20:38)
[2017-09-21] MEDS: predniSONE 10 MG TABLET PO SCH (20:38)
[2017-09-21] MEDS: METOPROLOL TARTRATE 50 MG TABLET PO SCH (20:38)
[2017-09-21] MEDS: ACETAMINOPHEN 325 MG TABLET PO PRN (22:51)
[2017-09-22] MEDS: CITALOPRAM HYDROBROMIDE 20 MG TABLET PO SCH (08:32)
[2017-09-22] MEDS: CEFDINIR 300 MG CAPSULE PO SCH ×2 (08:32→21:02)
[2017-09-22] MEDS: DILTIAZEM HCL 180 MG CAP.ER.24H PO SCH (08:32)
[2017-09-22] MEDS: DILTIAZEM HCL 120 MG CAP.ER.24H PO SCH (08:32)
[2017-09-22] MEDS: predniSONE 10 MG TABLET PO SCH ×2 (08:33→20:59)
[2017-09-22] MEDS: POTASSIUM CHLORIDE 20 MEQ TABLET.ER PO SCH (08:35)
[2017-09-22] MEDS: FUROSEMIDE 40 MG TABLET PO SCH (08:35)
[2017-09-22] MEDS: METOPROLOL TARTRATE 50 MG TABLET PO SCH (08:36)
[2017-09-22] MEDS: HYDROXYCHLOROQUINE SULFATE 200 MG TABLET PO SCH ×2 (08:39→21:02)
[2017-09-22] MEDS: METOPROLOL TARTRATE 25 MG TABLET PO SCH ×2 (08:39→21:01)
[2017-09-22] MEDS: CHOLECALCIFEROL (VIT D3) 1,000 UNIT TABLET PO SCH (08:39)
[2017-09-22] MEDS: MULTIVITAMIN 1 EACH TABLET PO SCH (08:39)
[2017-09-22] MEDS: DIGOXIN 125 MCG TABLET PO SCH (15:57)
[2017-09-22] MEDS: ACETAMINOPHEN WITH CODEINE 300MG/30MG TABLET PO PRN (19:20)
[2017-09-23 06:49] LABS: BASOPHILS % 0.5 (0.0-1.5); EOSINOPHILS % 1.9 % (0.0-6.8); MEAN CORPUSCULAR HEMOGLOBIN 24.2 pg (28.0-34.0); MEAN CORPUSCULAR VOLUME 88.7 fl (80.0-100.0); MONOCYTES % 4.5 % (0.0-11.0); NEUTROPHILS # 11.5 # k/uL (1.4-7.7)
[2017-09-23 07:01] LABS: eGFR (African) > 60; eGFR (Non-African) > 60
[2017-09-23] MEDS: DILTIAZEM HCL 180 MG CAP.ER.24H PO SCH (09:29)
[2017-09-23] MEDS: predniSONE 10 MG TABLET PO SCH ×2 (09:30→21:15)
[2017-09-23] MEDS: CITALOPRAM HYDROBROMIDE 20 MG TABLET PO SCH (09:30)
[2017-09-23] MEDS: ACETAMINOPHEN 325 MG TABLET PO PRN ×2 (09:30→16:53)
[2017-09-23] MEDS: DILTIAZEM HCL 120 MG CAP.ER.24H PO SCH (09:30)
[2017-09-23] MEDS: FUROSEMIDE 40 MG TABLET PO SCH (09:31)
[2017-09-23] MEDS: CHOLECALCIFEROL (VIT D3) 1,000 UNIT TABLET PO SCH (09:31)
[2017-09-23] MEDS: MULTIVITAMIN 1 EACH TABLET PO SCH (09:31)
[2017-09-23] MEDS: POTASSIUM CHLORIDE 20 MEQ TABLET.ER PO SCH (09:31)
[2017-09-23] MEDS: METOPROLOL TARTRATE 25 MG TABLET PO SCH ×2 (09:34→21:16)
--- NOTE | 2017-09-23 09:42 | Diagnostic Imaging Report ---
NEDRA JIMENEZ [facility] [id number] [facility] [address] 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 COMPARISON: Chest x-rays dated 09/19/2017 and 05/24/2017 TECHNIQUE: 2 views of the chest were performed. FINDINGS: Cardiomegaly is re-identified. There is central pulmonary vascular congestion, improved since the previous chest x-ray. There is blunting of the costophrenic angles, improved since the previous chest x-ray. No pneumothorax or new infiltrates. Left shoulder arthroplasty is re-identified. IMPRESSION: 1. Cardiomegaly and central pulmonary vascular congestion, consistent with CHF. This appearance is improved since the previous chest x-ray performed 4 days earlier. 2. Small bilateral pleural effusions, improved since chest x-ray performed 4 days earlier. Electronically signed on Sep 23, 2017 7:32:46 AM PLASTER BLOCK LAYER by: Sarwat NELSON
[2017-09-23] MEDS: CEFDINIR 300 MG CAPSULE PO SCH ×2 (10:41→21:15)
[2017-09-23] MEDS: HYDROXYCHLOROQUINE SULFATE 200 MG TABLET PO SCH ×2 (10:41→21:16)
[2017-09-23] MEDS: DIGOXIN 125 MCG TABLET PO SCH (16:06)
[2017-09-24] MEDS ORDERED: LOPERAMIDE HCL 2 MG CAPSULE PO ONE (01:46)
[2017-09-24] MEDS: DILTIAZEM HCL 120 MG CAP.ER.24H PO SCH (09:00)
[2017-09-24] MEDS: DILTIAZEM HCL 180 MG CAP.ER.24H PO SCH (09:00)
[2017-09-24] MEDS: MULTIVITAMIN 1 EACH TABLET PO SCH (09:03)
[2017-09-24] MEDS: FUROSEMIDE 40 MG TABLET PO SCH (09:03)
[2017-09-24] MEDS: predniSONE 10 MG TABLET PO SCH ×2 (09:04→19:40)
[2017-09-24] MEDS: POTASSIUM CHLORIDE 20 MEQ TABLET.ER PO SCH (09:07)
[2017-09-24] MEDS: HYDROXYCHLOROQUINE SULFATE 200 MG TABLET PO SCH ×2 (09:08→19:42)
[2017-09-24] MEDS: METOPROLOL TARTRATE 25 MG TABLET PO SCH ×2 (09:10→19:42)
[2017-09-24] MEDS: CHOLECALCIFEROL (VIT D3) 1,000 UNIT TABLET PO SCH (09:12)
[2017-09-24] MEDS: CITALOPRAM HYDROBROMIDE 20 MG TABLET PO SCH (09:13)
[2017-09-24] MEDS: CEFDINIR 300 MG CAPSULE PO SCH ×2 (09:21→19:40)
[2017-09-24] MEDS: DIGOXIN 125 MCG TABLET PO SCH (16:37)
[2017-09-24] MEDS: FERROUS SULFATE 325 MG TABLET PO SCH (17:32)
[2017-09-24] MEDS: ACETAMINOPHEN WITH CODEINE 300MG/30MG TABLET PO PRN (19:45)
[2017-09-25] MEDS: predniSONE 10 MG TABLET PO SCH ×2 (10:27→20:09)
[2017-09-25] MEDS: CITALOPRAM HYDROBROMIDE 20 MG TABLET PO SCH (10:29)
[2017-09-25] MEDS: FUROSEMIDE 40 MG TABLET PO SCH (10:29)
[2017-09-25] MEDS: POTASSIUM CHLORIDE 20 MEQ TABLET.ER PO SCH (10:29)
[2017-09-25] MEDS: DILTIAZEM HCL 180 MG CAP.ER.24H PO SCH (10:31)
[2017-09-25] MEDS: FERROUS SULFATE 325 MG TABLET PO SCH ×2 (10:31→17:52)
[2017-09-25] MEDS: CHOLECALCIFEROL (VIT D3) 1,000 UNIT TABLET PO SCH (10:31)
[2017-09-25] MEDS: MULTIVITAMIN 1 EACH TABLET PO SCH (10:31)
[2017-09-25] MEDS: CEFDINIR 300 MG CAPSULE PO SCH ×2 (10:31→20:08)
[2017-09-25] MEDS: DILTIAZEM HCL 120 MG CAP.ER.24H PO SCH (10:32)
[2017-09-25] MEDS: METOPROLOL TARTRATE 25 MG TABLET PO SCH ×2 (10:33→20:09)
[2017-09-25] MEDS: HYDROXYCHLOROQUINE SULFATE 200 MG TABLET PO SCH ×2 (10:33→20:08)
[2017-09-25] MEDS: DIGOXIN 125 MCG TABLET PO SCH (16:17)
[2017-09-25] MEDS: ACETAMINOPHEN WITH CODEINE 300MG/30MG TABLET PO PRN (23:47)
[2017-09-26] MEDS: DILTIAZEM HCL 120 MG CAP.ER.24H PO SCH (09:28)
[2017-09-26] MEDS: CITALOPRAM HYDROBROMIDE 20 MG TABLET PO SCH (09:29)
[2017-09-26] MEDS: predniSONE 10 MG TABLET PO SCH ×2 (09:30→19:33)
[2017-09-26] MEDS: FUROSEMIDE 40 MG TABLET PO SCH (09:31)
[2017-09-26] MEDS: METOPROLOL TARTRATE 25 MG TABLET PO SCH ×2 (09:31→19:33)
[2017-09-26] MEDS: POTASSIUM CHLORIDE 20 MEQ TABLET.ER PO SCH (09:31)
[2017-09-26] MEDS: MULTIVITAMIN 1 EACH TABLET PO SCH (09:33)
[2017-09-26] MEDS: HYDROXYCHLOROQUINE SULFATE 200 MG TABLET PO SCH ×2 (09:33→19:34)
[2017-09-26] MEDS: CHOLECALCIFEROL (VIT D3) 1,000 UNIT TABLET PO SCH (09:39)
[2017-09-26] MEDS: CEFDINIR 300 MG CAPSULE PO SCH ×2 (09:39→19:32)
[2017-09-26] MEDS: DILTIAZEM HCL 180 MG CAP.ER.24H PO SCH (09:39)
[2017-09-26] MEDS: FERROUS SULFATE 325 MG TABLET PO SCH ×2 (11:30→18:12)
[2017-09-26] MEDS: DIGOXIN 125 MCG TABLET PO SCH (17:08)
[2017-09-26] MEDS: ACETAMINOPHEN WITH CODEINE 300MG/30MG TABLET PO PRN (18:13)
[2017-09-27] MEDS: DILTIAZEM HCL 120 MG CAP.ER.24H PO SCH (08:37)
[2017-09-27] MEDS: DILTIAZEM HCL 180 MG CAP.ER.24H PO SCH (08:37)
[2017-09-27] MEDS: predniSONE 10 MG TABLET PO SCH ×2 (08:38→20:34)
[2017-09-27] MEDS: CITALOPRAM HYDROBROMIDE 20 MG TABLET PO SCH (08:38)
[2017-09-27] MEDS: FUROSEMIDE 40 MG TABLET PO SCH (08:40)
[2017-09-27] MEDS: METOPROLOL TARTRATE 25 MG TABLET PO SCH ×2 (08:40→20:34)
[2017-09-27] MEDS: POTASSIUM CHLORIDE 20 MEQ TABLET.ER PO SCH (08:40)
[2017-09-27] MEDS: HYDROXYCHLOROQUINE SULFATE 200 MG TABLET PO SCH ×2 (08:40→20:34)
[2017-09-27] MEDS: MULTIVITAMIN 1 EACH TABLET PO SCH (08:41)
[2017-09-27] MEDS: CHOLECALCIFEROL (VIT D3) 1,000 UNIT TABLET PO SCH (08:42)
[2017-09-27] MEDS: FERROUS SULFATE 325 MG TABLET PO SCH ×2 (11:26→18:39)
[2017-09-27] MEDS: DIGOXIN 125 MCG TABLET PO SCH (16:04)
[2017-09-28] MEDS: DILTIAZEM HCL 120 MG CAP.ER.24H PO SCH (09:41)
[2017-09-28] MEDS: CITALOPRAM HYDROBROMIDE 20 MG TABLET PO SCH (09:41)
[2017-09-28] MEDS: METOPROLOL TARTRATE 25 MG TABLET PO SCH ×2 (09:42→20:41)
[2017-09-28] MEDS: FUROSEMIDE 40 MG TABLET PO SCH (09:43)
[2017-09-28] MEDS: HYDROXYCHLOROQUINE SULFATE 200 MG TABLET PO SCH ×2 (09:43→20:41)
[2017-09-28] MEDS: predniSONE 10 MG TABLET PO SCH ×2 (09:44→20:40)
[2017-09-28] MEDS: MULTIVITAMIN 1 EACH TABLET PO SCH (09:44)
[2017-09-28] MEDS: DILTIAZEM HCL 180 MG CAP.ER.24H PO SCH (09:44)
[2017-09-28] MEDS: POTASSIUM CHLORIDE 20 MEQ TABLET.ER PO SCH (09:45)
[2017-09-28] MEDS: CHOLECALCIFEROL (VIT D3) 1,000 UNIT TABLET PO SCH (09:50)
[2017-09-28] MEDS: FERROUS SULFATE 325 MG TABLET PO SCH ×2 (11:34→17:34)
[2017-09-28] MEDS: DIGOXIN 125 MCG TABLET PO SCH (16:28)
[2017-09-28] MEDS: ACETAMINOPHEN WITH CODEINE 300MG/30MG TABLET PO PRN ×2 (16:28→23:10)
[2017-09-29] MEDS: predniSONE 10 MG TABLET PO SCH ×2 (08:58→19:44)
[2017-09-29] MEDS: MULTIVITAMIN 1 EACH TABLET PO SCH (08:59)
[2017-09-29] MEDS: CITALOPRAM HYDROBROMIDE 20 MG TABLET PO SCH (09:00)
[2017-09-29] MEDS: HYDROXYCHLOROQUINE SULFATE 200 MG TABLET PO SCH ×2 (09:00→19:44)
[2017-09-29] MEDS: POTASSIUM CHLORIDE 20 MEQ TABLET.ER PO SCH (09:01)
[2017-09-29] MEDS: DILTIAZEM HCL 120 MG CAP.ER.24H PO SCH (09:04)
[2017-09-29] MEDS: FUROSEMIDE 40 MG TABLET PO SCH (09:04)
[2017-09-29] MEDS: METOPROLOL TARTRATE 25 MG TABLET PO SCH ×2 (09:27→19:43)
[2017-09-29] MEDS: DILTIAZEM HCL 180 MG CAP.ER.24H PO SCH (09:58)
[2017-09-29] MEDS: FERROUS SULFATE 325 MG TABLET PO SCH ×2 (11:15→18:30)
[2017-09-29 12:37] LABS: MEAN CORPUSCULAR VOLUME 88.2 fl (80.0-100.0)
[2017-09-29] MEDS: DIGOXIN 125 MCG TABLET PO SCH (15:56)
[2017-09-29] MEDS: CHOLECALCIFEROL (VIT D3) 1,000 UNIT TABLET PO SCH (15:58)
[2017-09-30] MEDS: ACETAMINOPHEN WITH CODEINE 300MG/30MG TABLET PO PRN (02:16)
[2017-09-30 07:11] LABS: eGFR (African) > 60; eGFR (Non-African) > 60
--- NOTE | 2017-09-30 07:41 | Discharge Summary ---
Discharge Summary - Discharge Sumary History of Present Illness: Patient admitted to SNF for therapy after being in acute for anemia and CHF. She did very with PT and OT and will be discharged with no home health. She did have an episode of SOB - BNP was over 4000 and CXR showed mild pulmonary edema. She was started on lasix 40 mg and KCL 20 meq. She responded well to this. She will be discharged on lasix 20 mg and KCl 10 meq. I asked her to weigh daily and do low sodium. I could not find any recent cardiology visits. We are setting her up with cardiology and an echo to look at heart function. She is on bblocker for rate control for Afib. I am hesitant to add ACEI given the amount of afib rate control meds she is on as her BP tends to run lower. Will leave this to cardiology and her PCP, Dr. Huerta. She was also started on FeSO4 for iron deficiency. No constipation noted. HGB up to 10 at discharge. Discharged home in stable condition. Condition at Discharge: Stable Home Medications: Ambulatory Orders Medication Instructions Recorded Metformin HCl [Glucophage] 1 tab PO DAILY 09/30/16 Acetaminophen [Tylenol] 325 mg PO Q6 PRN 05/22/17 Bisacodyl [Dulcolax] 5 mg PO DAILY PRN 05/22/17 Docusate Sodium [Colace] 100 mg PO DAILY PRN 05/22/17 Multivitamin [Daily Multiple 1 each PO DAILY 05/22/17 Vitamin] predniSONE [Deltasone] 5 mg PO BID 05/22/17 Hydroxychloroquine Sulfate 200 mg PO BID 09/17/17 Ferrous Sulfate [Feosol] 325 mg PO [id number] #60 tablet. 09/29/17 Furosemide [Lasix] 20 mg PO DAILY #30 tablet 09/29/17 Potassium Chloride [Klor-Con 10] 10 meq PO DAILY #30 tablet.er 09/29/17 Consultations this Visit: None Procedures this Visit: None Allergies/Adverse Reactions: Allergies Allergy/AdvReac Type Severity Reaction Status Date / Time levofloxacin [From Levaquin] Allergy Rash Verified 09/17/17 18:03 tramadol AdvReac Vomiting Verified 09/17/17 18:03
[2017-09-30 08:31] VITALS: BP 119/69
[2017-09-30] MEDS: CITALOPRAM HYDROBROMIDE 20 MG TABLET PO SCH (10:05)
[2017-09-30] MEDS: DILTIAZEM HCL 120 MG CAP.ER.24H PO SCH (10:06)
[2017-09-30] MEDS: METOPROLOL TARTRATE 25 MG TABLET PO SCH (10:06)
[2017-09-30] MEDS: POTASSIUM CHLORIDE 20 MEQ TABLET.ER PO SCH (10:07)
[2017-09-30] MEDS: FUROSEMIDE 40 MG TABLET PO SCH (10:07)
[2017-09-30] MEDS: predniSONE 10 MG TABLET PO SCH (10:07)
[2017-09-30] MEDS: MULTIVITAMIN 1 EACH TABLET PO SCH (10:08)
[2017-09-30] MEDS: HYDROXYCHLOROQUINE SULFATE 200 MG TABLET PO SCH (10:08)
[2017-09-30] MEDS: DILTIAZEM HCL 180 MG CAP.ER.24H PO SCH (10:09)
[2017-09-30] MEDS: CHOLECALCIFEROL (VIT D3) 1,000 UNIT TABLET PO SCH (10:11)
--- NOTE | 2017-10-21 14:27 | History and Physical Report ---
History of Present Illnes - History of Present Illness Reason for Visit: generalized weakness following illness History of Present Illness: 77-year-old white female who is had some previous G.I. bleeding with unknown source. Patient has had multiple colonoscopy and endoscopy done with no specific source of the bleeding noted. Patient was having some increasing shortness of breath dyspnea. Patient was having poor exercise tolerance. Patient has not been eating well related to stress over the of her . Patient subsequently came to the emergency room for evaluation. In the emergency room patient was found to be anemic with a hemoglobin of 7.2.patient is also noted to have some changes to her chest x-ray consistent with congestive heart failure possible early pneumonia. Patient was subsequently admitted to the hospital for further care and evaluation. Patient was transfused 2 units of PRBC on admission ahd HGB remained stable since that time. No evidence of any further GI bleeding noted. Patient did have a leukocytosis and cough. CXR should bilateral lower lobe infiltrate / congestion. Patient was felt to have a pneumonia and was started on IV antibiotics. Breathing status and cough did improve. DM remained stable during hospitalization. Atrial fibrillation remained stable with no tach or bradycardia. Patient remained weak and was felt to be at an increase fall risk and was seen by PT and OT. It was felt that she would benefit from further skilled services and was admitted to SNF. - Past Medical History Cardiac: HTN Pulmonary: COPD (on home oxygen), Sleep Apnea HEALTH CARE SPECIALIST: Other (sleep apnea) Gastrointestinal: Other (esophagitis) Psych: Anxiety, Depression Musculoskeletal: Chronic low back pain Rheumatologic: Gout, Rheumatoid arthritis, Other (degenerative disc disease) Endocrine: Other (gout) - Past Surgical History Past Surgical History: Cholecystectomy, Hysterectomy, Total Knee Replacement ( left), Other (shoulder surgery) - Past Family History Mother Family History: Cancer ( ALL), (40yo) Father Family History: Hypertension, (32yo from a heart condition) - Past Social History Smoke: No 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 negative: Fever, Chills, Sweats Eyes: negative: vision change ENT: negative: Ear Pain, Ear Discharge, Throat Pain, Throat Swelling Respiratory: Cough, Dry, Shortness of Breath, SOB with Excertion. negative: Hemoptysis, Pleuritic Pain, Wheezing Cardiovascular: negative: Chest Pain, Palpitations, Light Headedness Gastrointestinal: negative: Nausea, Vomiting, Abdominal Pain, Diarrhea, Constipation, Melena Genitourinary: negative: Dysuria, Frequency Musculoskeletal: Back Pain (mild) Skin: negative: Rash Neurological: Weakness - Medications/Allergies Allergies/Adverse Reactions: Allergies Allergy/AdvReac Type Severity Reaction Status Date / Time levofloxacin [From Levaquin] Allergy Rash Verified 09/17/17 18:03 tramadol AdvReac Vomiting Verified 09/17/17 18:03 Exam - Exam General: Alert, Oriented to Person HEENT: Atraumatic, PERRLA, EOMI, Mouth Mucous membr. moist/[place], Nose Mucous membr. moist/[place] Neck: Normal Range of Motion Lungs: Clear to auscultation, Normal air movement, Speaks full Sentences, Rales (few basilar rales bilaterally) Cardiovascular: Regular rate, Normal S1, Normal S2, No murmurs Abdomen: Normal bowel sounds, Soft, No tenderness, No hepatospenomegaly, No masses Integumentary: Normal, [place], Warm, Dry Extremities: No clubbing, No cyanosis, No edema, Normal pulses, No tenderness/ swelling Neurological: Normal gait, Normal speech, Strength Equal Bilat, Normal tone, Sensation intact, Cranial nerves 3-12 NL, Reflexes 2+ Psych/Mental Status: Mental status NL, Mood NL, Appropriate Affect, Intact Judgment - Laboratory Results Laboratory Results: Laboratory Results 09/23/17 09/23/17 09/23/17 06:25 06:25 06:25 WBC 13.60 H RBC 3.38 L Hgb 8.2 L Hct 30.0 L MCV 88.7 MCH 24.2 L MCHC 27.3 L RDW 15.3 H Plt Count 304 Neut % (Auto) 84.3 H Lymph % (Auto) 6.3 L [place] % (Auto) 4.5 Eos % (Auto) 1.9 Baso % (Auto) 0.5 Neut # (Auto) 11.5 H Lymph # (Auto) 0.8 [place] # (Auto) 0.6 Eos # (Auto) 0.3 Baso # (Auto) 0.1 Reactive Lymphs % 2.4 Reactive Lymphs # 0.3 Sodium 139 Potassium 4.1 Chloride 98 Carbon Dioxide 31 H BUN 16 Creatinine 1.00 Estimated Creat Clear 74 Est GFR ( Amer) > 60 Est GFR (Non-Af Amer) > 60 Glucose 109 H Calcium 8.9 Iron (send out) 16 L Total Bilirubin 0.8 AST 19 ALT 34 Alkaline Phosphatase 81 NT-Pro-B Natriuret Pep Total Protein 5.3 L Albumin 2.6 L Digoxin 09/23/17 09/29/17 09/29/17 06:25 12:10 12:10 WBC 13.10 H RBC 4.00 Hgb 10.0 L Hct 35.2 MCV 88.2 MCH 25.0 L MCHC 28.4 L RDW 15.6 H Plt Count 332 Neut % (Auto) Lymph % (Auto) [place] % (Auto) Eos % (Auto) Baso % (Auto) Neut # (Auto) Lymph # (Auto) [place] # (Auto) Eos # (Auto) Baso # (Auto) Reactive Lymphs % Reactive Lymphs # Sodium Potassium Chloride Carbon Dioxide BUN Creatinine Estimated Creat Clear Est GFR ( Amer) Est GFR (Non-Af Amer) Glucose Calcium Iron (send out) Total Bilirubin AST ALT Alkaline Phosphatase NT-Pro-B Natriuret Pep 4596.2 H Total Protein Albumin Digoxin 0.9 09/30/17 06:40 WBC RBC Hgb Hct MCV MCH MCHC RDW Plt Count Neut % (Auto) Lymph % (Auto) [place] % (Auto) Eos % (Auto) Baso % (Auto) Neut # (Auto) Lymph # (Auto) [place] # (Auto) Eos # (Auto) Baso # (Auto) Reactive Lymphs % Reactive Lymphs # Sodium 140 Potassium 4.3 Chloride 100 Carbon Dioxide 31 H BUN 25 H Creatinine 1.00 Estimated Creat Clear 74 Est GFR ( Amer) > 60 Est GFR (Non-Af Amer) > 60 Glucose 84 Calcium 9.1 Iron (send out) Total Bilirubin AST ALT Alkaline Phosphatase NT-Pro-B Natriuret Pep Total Protein Albumin Digoxin Assessment/Plan - Assessment/Plan (1) Gait disturbance Status: Acute Assessment: PT and OT evaluation (2) Diabetes type 2 with atherosclerosis of arteries of extremities Status: Chronic Assessment: Continue with home medications and monitor (3) Iron deficiency anemia Status: Acute Assessment: start iron and monitor (4) Pneumonia Status: Acute Qualifiers: Pneumonia type: due to unspecified organism Laterality: right Lung location: unspecified part of lung Qualified Code(s): J18.9 - Pneumonia, unspecified organism Assessment: finish po antibiotics (5) Sleep apnea Status: Chronic Assessment: C Pap VTE Assessment - RISK FACTOR SCORE VTE RISK FACTOR SCORES: AGE OVER 60 YEARS, ANTICIPATED BED CONFINEMENT OR IMMOBILIZATION > 24 HOURS - RISK VTE MODERATE RISK: SCORE OF 2 (RISK PROXIMAL DVT 2-4%) PROPHYAXIS NEEDED (GI bleed risk, will not do)
== END 2017-09-30 10:15 | disposition home or self-care (01) | DRG 947 ==
LOC: SOUTH 14:25
PROVIDERS: ADMIT Family Medicine; ATTEND Family Medicine
DX: R53.1 Weakness (principal); J18.1 Lobar pneumonia, unspecified organism; K92.2 Gastrointestinal hemorrhage, unspecified; D50.0 Iron deficiency anemia secondary to blood loss (chronic); I50.9 Heart failure, unspecified; G47.30 Sleep apnea, unspecified; I10 Essential (primary) hypertension
CPT/HCPCS: 36415; 71020; 80048; 80053; 80162; 83540; 83880; 85025; 85027; 97110; 97112; 97116; 97161; 97165; 97530; 97535; A9270; J7512

== ENCOUNTER 2017-10-21 16:50 | Outpatient (CLI) | payer MEDICARE, OTHER ==
[2017-10-21 16:59] LABS: BASOPHILS % 0.6 (0.0-1.5); MEAN CORPUSCULAR HEMOGLOBIN 25.4 pg (28.0-34.0); MEAN CORPUSCULAR VOLUME 87.4 fl (80.0-100.0); MONOCYTES % 3.8 % (0.0-11.0); NEUTROPHILS # 8.5 # k/uL (1.4-7.7)
== END 2017-10-21 16:52 ==
LOC: LABRHC 16:50
PROVIDERS: ATTEND Family Medicine
DX: D64.9 Anemia, unspecified (principal)
CPT/HCPCS: 83540; 85025

== ENCOUNTER 2017-11-09 07:59 | Day surgery (SDC) | payer MEDICARE, OTHER ==
--- NOTE | 2017-11-10 15:03 | GI Report ---
REFERRING PHYSICIAN: Dr. Yoshi Huerta BANKING PARALEGAL: Landon King MD PROCEDURE MEDICATION: Propofol as per anesthesia. INDICATIONS: This 77-year-old woman was in the hospital recently with significant anemia with a hemoglobin of 8.2 and a hematocrit of 30. Her serum iron was only 16. She did receive some transfusion because of congestive heart failure. She has not noted specific blood in her stools. She does have atrial fibrillation and is on Xarelto. She is on omeprazole daily. She also takes prednisone for arthritis and hydroxychloroquine. She is a diabetic and takes metformin. She is also on citalopram. She has had colonoscopies in the past. She has had diverticular disease and had an upper endoscopy and has not had a specific site of bleeding. In fact, she did not stop taking her Xarelto. We discussed we could do a diagnostic, but we cannot dilate her or take biopsies on Xarelto. PROCEDURE PERFORMED: Endoscopy. PROCEDURE: An Olympus video endoscope is passed through the esophagus under direct visualization. She has maybe grade 2 esophagitis at the GE junction and a slight ring but not significantly narrowed. The stomach is entered. She has diffuse atrophic gastritis and there are a couple of areas where the mucosal is friable and has stigmata of recent bleeding and does not look like any tumor. She does have some bile present. Duodenal bulb and first part of the duodenum , a lot of bowel is present. She does have kind of the villi and themselves grossly look normal. The patient tolerated the procedure well. FINDINGS: Severe atrophic gastritis with areas suggestive of hemorrhage. DISCUSSION/IMPRESSION: 1. Again, it is difficult for a patient with arthritis who is on steroids. Stomach does not heal well. She needs to be on Xarelto because of her atrial fibrillation. 2. I would see whether she could tolerate lower doses of prednisone. I would also cover with an antacid like Carafate or [id number] Gaviscon to take after meals and at bedtime to kind of coat the lining of the stomach. 3. Again, I think with her medications, this is making her continually lose some blood. I do not have an obvious answer without some medication change. The other would be possibly stopping the citalopram. There are some studies suggesting that taking SSRIs increase your bleeding risk when you are on blood thinners. 4. She just takes Tylenol. She does not take nonsteroidal's in addition. cc: Dr. Yoshi NELSON
== END 2017-11-09 08:00 ==
LOC: OPSURG 07:59
PROVIDERS: ATTEND Internal Medicine Gastroenterology
DX: K29.41 Chronic atrophic gastritis with bleeding (principal); I50.9 Heart failure, unspecified; I48.91 Unspecified atrial fibrillation; E11.9 Type 2 diabetes mellitus without complications
CPT/HCPCS: J2704; J7120; 43235; S1016

== ENCOUNTER 2017-11-23 13:08 | Outpatient (CLI) | payer MEDICARE, OTHER ==
[2017-11-23 13:26] LABS: BASOPHILS % 0.4 (0.0-1.5); MEAN CORPUSCULAR HEMOGLOBIN 28.1 pg (28.0-34.0); MEAN CORPUSCULAR VOLUME 90.5 fl (80.0-100.0); MONOCYTES % 4.9 % (0.0-11.0); NEUTROPHILS # 8.8 # k/uL (1.4-7.7)
== END 2017-11-23 13:10 ==
LOC: LAB 13:08
PROVIDERS: ATTEND Family Medicine
DX: K92.2 Gastrointestinal hemorrhage, unspecified (principal)
CPT/HCPCS: 36415; 85025

== ENCOUNTER 2018-05-13 10:49 | Outpatient (CLI) | payer MEDICARE, OTHER ==
[2018-05-13 11:56] LABS: eGFR (Non-African) > 60
== END 2018-05-13 10:50 ==
LOC: LAB 10:49
PROVIDERS: ATTEND Family Medicine
DX: E11.9 Type 2 diabetes mellitus without complications (principal); M06.9 Rheumatoid arthritis, unspecified
CPT/HCPCS: 36415; 80053; 80061; 83036; 84550

== ENCOUNTER 2018-09-09 15:00 | Inpatient (IN) | payer MEDICARE, OTHER ==
--- NOTE | 2018-09-09 17:26 | History and Physical Report ---
History of Present Illnes - History of Present Illness Reason for Visit: s/p knee replacement, replacement History of Present Illness: Patient is a 78-year-old white female who has had significant osteoarthritis. Knees bilaterally. Patient has previously undergone a left total knee replacement. Patient was seen by orthopedic physician and felt that she would benefit from the right total knee replacement. Patient did undergo this. Patient did not have any intraoperative or postoperative complications. Patient was subsequently transferred to this institution for further rehab services. 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 negative: Cough, Dry, Shortness of Breath, Hemoptysis, Pleuritic Pain Cardiovascular: Other (a fib). negative: Chest Pain, Palpitations, Orthopnea, Paroxysmal Noc. Dyspnea Gastrointestinal: Constipation. negative: Nausea, Vomiting, Abdominal Pain, Diarrhea, Melena, Hematochezia Genitourinary: negative: Dysuria, Frequency, Incontinence Musculoskeletal: Leg Pain Skin: negative: Rash Neurological: negative: Weakness, Numbness, Incoordination, Confusion - Medications/Allergies Allergies/Adverse Reactions: Allergies Allergy/AdvReac Type Severity Reaction Status Date / Time chlorzoxazone Allergy Verified 09/09/18 19:16 levofloxacin [From Levaquin] Allergy Rash Verified 09/09/18 19:16 lisinopril Allergy Verified 09/09/18 19:16 propoxyphene napsylate Allergy Verified 01/17/19 19:16 tramadol AdvReac Vomiting Verified 09/09/18 19:16 Current Inpatient Medications: Current Inpatient Medications Acetaminophen/Codeine Phosphate (Tylenol #3) 1 - 2 each PO Q4 PRN PRN Reason: Mild Pain Cyanocobalamin (Vitamin B-12) 1,000 mcg IM NOW ONE Stop: 09/12/18 17:07 Diltiazem HCl (Cardizem Cd) 120 mg PO DAILY [facility] Diltiazem HCl (Cardizem Cd) 180 mg PO DAILY [facility] Docusate Sodium (Colace) 200 mg PO DAILY [facility] Ferrous Sulfate (Feosol) 325 mg PO BID [facility] Metformin HCl (Glucophage) 500 mg PO [id number] [facility] Metoprolol Tartrate (Lopressor) 25 mg PO DAILY [facility] Pantoprazole Sodium (Protonix) 40 mg PO 0700 [facility] Potassium Chloride (Klor-Con 10) 10 meq PO DAILY [facility] Prednisone (Deltasone) 2.5 mg PO BID [facility] Exam - Exam General: Alert, Oriented to Person, Oriented to Place, Oriented to Time, Cooperative HEENT: Atraumatic, PERRLA, EOMI, Mouth Mucous membr. moist/[place], Nose Mucous membr. moist/[place] Neck: Normal Range of Motion Carotids: WNL Thyroid: WNL Lungs: Clear to auscultation, Normal air movement, Speaks full Sentences Cardiovascular: Normal S1, Normal S2, No murmurs, Atrial Fib Murmur: Systolic Murmur Heart Murmur Grade: I Abdomen: Normal bowel sounds, Soft, No tenderness, No hepatospenomegaly, No masses Integumentary: Normal, [place], Warm, Dry Extremities: No clubbing, No cyanosis, No edema, Normal pulses, No tenderness/swelling, Other (well healing surgical scar noted to the right lower extremity over the knee. There was some mild swelling and ecchymosis associated with it. No evidence of any secondary infection noted.) Neurological: Normal gait, Normal speech, Strength Equal Bilat, Normal tone, Sensation intact, Cranial nerves 3-12 NL, Reflexes 2+ Psych/Mental Status: Mental status NL, Mood NL, Appropriate Affect, Intact Judgment Assessment/Plan - Assessment/Plan (1) Gait disturbance Status: Acute Current Visit: No Assessment: PT and OT evaluation, goal is for patient to return home (2) Atrial fibrillation Status: Chronic Current Visit: No Assessment: Patient is a 78-year-old white female who has had significant osteoarthritis. Knees bilaterally. Patient has previously undergone a right total knee replacement. Patient was seen by orthopedic physician and felt that she would benefit from the left total knee replacement. Patient did undergo this. Patient did not have any intraoperative or postoperative complications. Patient was subsequently transferred to this institution for further rehab services. (3) Anticoagulant long-term use Status: Chronic Current Visit: Yes Plan: continue home med. (4) Congestive heart failure Status: Acute Current Visit: No (5) Essential hypertension Status: Chronic Current Visit: No Assessment: continue home med. (6) Rheumatoid arthritis Status: Chronic Current Visit: No Assessment: continue home med. (7) Type 2 diabetes mellitus Status: Chronic Current Visit: No Qualifiers: Diabetes mellitus moth exterminator insulin use: without moth exterminator use Diabetes mellitus complication status: without complication Qualified Code(s): E11.9 - Type 2 diabetes mellitus without complications Assessment: monitor and continue home med. VTE Assessment - RISK FACTOR SCORE VTE RISK FACTOR SCORES: AGE OVER 60 YEARS, MAJOR SURGERY/ANESTHESIA TIME > 1 HOUR, ELECTIVE KNEE OR HIP ARTHROPLASTY
[2018-09-09 18:22] VITALS: BMI 75.9
[2018-09-09] MEDS: ONDANSETRON HCL 4 MG TAB.RAPDIS PO PRN (18:34)
[2018-09-09] MEDS: WARFARIN SODIUM 2.5 MG TABLET PO SCH (20:26)
[2018-09-09] MEDS: FERROUS SULFATE 325 MG TABLET PO SCH (20:26)
[2018-09-09] MEDS: ACETAMINOPHEN WITH CODEINE 300MG/30MG TABLET PO PRN (20:26)
[2018-09-09] MEDS: predniSONE 1 MG TABLET PO SCH (20:26)
[2018-09-10] MEDS: PANTOPRAZOLE SODIUM 40 MG TABLET.DR PO SCH (06:05)
[2018-09-10] MEDS: DILTIAZEM HCL 180 MG CAP.ER.24H PO SCH (08:00)
[2018-09-10] MEDS: METOPROLOL TARTRATE 25 MG TABLET PO SCH (08:00)
[2018-09-10] MEDS: POTASSIUM CHLORIDE 10 MEQ TABLET.ER PO SCH (08:00)
[2018-09-10] MEDS: predniSONE 1 MG TABLET PO SCH ×2 (08:00→20:14)
[2018-09-10] MEDS: DILTIAZEM HCL 120 MG CAP.ER.24H PO SCH (08:01)
[2018-09-10] MEDS: FERROUS SULFATE 325 MG TABLET PO SCH ×2 (08:01→20:14)
[2018-09-10] MEDS: DOCUSATE SODIUM 100 MG CAPSULE PO SCH (08:01)
[2018-09-10] MEDS: ONDANSETRON HCL 4 MG TAB.RAPDIS PO PRN (08:08)
[2018-09-10] MEDS: ACETAMINOPHEN WITH CODEINE 300MG/30MG TABLET PO PRN ×2 (09:45→20:14)
[2018-09-11] MEDS: ACETAMINOPHEN WITH CODEINE 300MG/30MG TABLET PO PRN ×3 (00:46→20:18)
[2018-09-11] MEDS: PANTOPRAZOLE SODIUM 40 MG TABLET.DR PO SCH (06:06)
[2018-09-11] MEDS: DILTIAZEM HCL 120 MG CAP.ER.24H PO SCH (08:50)
[2018-09-11] MEDS: DOCUSATE SODIUM 100 MG CAPSULE PO SCH (08:50)
[2018-09-11] MEDS: DILTIAZEM HCL 180 MG CAP.ER.24H PO SCH (08:50)
[2018-09-11] MEDS: METOPROLOL TARTRATE 25 MG TABLET PO SCH (08:51)
[2018-09-11] MEDS: predniSONE 1 MG TABLET PO SCH ×2 (08:51→20:17)
[2018-09-11] MEDS: POTASSIUM CHLORIDE 10 MEQ TABLET.ER PO SCH (08:51)
[2018-09-11] MEDS: FERROUS SULFATE 325 MG TABLET PO SCH ×2 (08:52→20:18)
[2018-09-11] MEDS: ONDANSETRON HCL 4 MG TAB.RAPDIS PO PRN (16:39)
[2018-09-11] MEDS: WARFARIN SODIUM 2.5 MG TABLET PO SCH (18:17)
[2018-09-12] MEDS: PANTOPRAZOLE SODIUM 40 MG TABLET.DR PO SCH (06:03)
[2018-09-12] MEDS: DILTIAZEM HCL 120 MG CAP.ER.24H PO SCH (08:53)
[2018-09-12] MEDS: DILTIAZEM HCL 180 MG CAP.ER.24H PO SCH (08:54)
[2018-09-12] MEDS: METOPROLOL TARTRATE 25 MG TABLET PO SCH (08:54)
[2018-09-12] MEDS: POTASSIUM CHLORIDE 10 MEQ TABLET.ER PO SCH (08:54)
[2018-09-12] MEDS: FERROUS SULFATE 325 MG TABLET PO SCH ×2 (08:54→20:10)
[2018-09-12] MEDS: DOCUSATE SODIUM 100 MG CAPSULE PO SCH (08:54)
[2018-09-12] MEDS: predniSONE 1 MG TABLET PO SCH ×2 (08:58→20:10)
[2018-09-12] MEDS: ACETAMINOPHEN WITH CODEINE 300MG/30MG TABLET PO PRN ×4 (09:32→20:09)
[2018-09-12] MEDS ORDERED: CYANOCOBALAMIN 1,000 MCG/ML VIAL IM ONE (17:06)
[2018-09-13] MEDS: PANTOPRAZOLE SODIUM 40 MG TABLET.DR PO SCH (06:08)
[2018-09-13 07:14] LABS: BASOPHILS % 0.6 (0.0-1.5); EOSINOPHILS % 3.2 % (0.0-6.8); MONOCYTES % 8.7 % (0.0-11.0); NEUTROPHILS # 7.8 # k/uL (1.4-7.7)
[2018-09-13 07:27] LABS: eGFR (Non-African) > 60
[2018-09-13] MEDS: FERROUS SULFATE 325 MG TABLET PO SCH ×2 (08:20→20:42)
[2018-09-13] MEDS: METOPROLOL TARTRATE 25 MG TABLET PO SCH (08:20)
[2018-09-13] MEDS: DILTIAZEM HCL 120 MG CAP.ER.24H PO SCH (08:20)
[2018-09-13] MEDS: DOCUSATE SODIUM 100 MG CAPSULE PO SCH (08:20)
[2018-09-13] MEDS: DILTIAZEM HCL 180 MG CAP.ER.24H PO SCH (08:20)
[2018-09-13] MEDS: POTASSIUM CHLORIDE 10 MEQ TABLET.ER PO SCH (08:20)
[2018-09-13] MEDS: predniSONE 1 MG TABLET PO SCH ×2 (08:22→20:41)
[2018-09-13] MEDS: ACETAMINOPHEN WITH CODEINE 300MG/30MG TABLET PO PRN ×3 (09:09→20:30)
[2018-09-13] MEDS ORDERED: POLYETHYLENE GLYCOL 3350 17 GM POWD.PACK ONE (11:46)
[2018-09-13] MEDS: POLYETHYLENE GLYCOL 3350 17 GM POWD.PACK PO PRN (12:04)
[2018-09-13] MEDS: WARFARIN SODIUM 2.5 MG TABLET PO SCH (18:06)
[2018-09-14] MEDS: PANTOPRAZOLE SODIUM 40 MG TABLET.DR PO SCH (06:06)
[2018-09-14] MEDS: DILTIAZEM HCL 120 MG CAP.ER.24H PO SCH (09:04)
[2018-09-14] MEDS: DILTIAZEM HCL 180 MG CAP.ER.24H PO SCH (09:05)
[2018-09-14] MEDS: DOCUSATE SODIUM 100 MG CAPSULE PO SCH (09:06)
[2018-09-14] MEDS: predniSONE 1 MG TABLET PO SCH ×2 (09:07→19:47)
[2018-09-14] MEDS: FERROUS SULFATE 325 MG TABLET PO SCH ×2 (09:08→19:48)
[2018-09-14] MEDS: METOPROLOL TARTRATE 25 MG TABLET PO SCH (09:09)
[2018-09-14] MEDS: ACETAMINOPHEN WITH CODEINE 300MG/30MG TABLET PO PRN (09:09)
[2018-09-14] MEDS: POTASSIUM CHLORIDE 10 MEQ TABLET.ER PO SCH (09:09)
[2018-09-15] MEDS: ACETAMINOPHEN WITH CODEINE 300MG/30MG TABLET PO PRN ×4 (03:54→20:48)
[2018-09-15] MEDS: PANTOPRAZOLE SODIUM 40 MG TABLET.DR PO SCH (06:14)
[2018-09-15] MEDS: DILTIAZEM HCL 180 MG CAP.ER.24H PO SCH (09:56)
[2018-09-15] MEDS: DOCUSATE SODIUM 100 MG CAPSULE PO SCH (09:56)
[2018-09-15] MEDS: DILTIAZEM HCL 120 MG CAP.ER.24H PO SCH (09:56)
[2018-09-15] MEDS: predniSONE 1 MG TABLET PO SCH ×2 (09:57→20:40)
[2018-09-15] MEDS: POTASSIUM CHLORIDE 10 MEQ TABLET.ER PO SCH (09:57)
[2018-09-15] MEDS: FERROUS SULFATE 325 MG TABLET PO SCH ×2 (09:57→20:39)
[2018-09-15] MEDS: METOPROLOL TARTRATE 25 MG TABLET PO SCH (09:58)
[2018-09-15] MEDS: WARFARIN SODIUM 2.5 MG TABLET PO SCH (17:42)
[2018-09-16] MEDS: PANTOPRAZOLE SODIUM 40 MG TABLET.DR PO SCH (06:17)
[2018-09-16] MEDS: DILTIAZEM HCL 120 MG CAP.ER.24H PO SCH (09:04)
[2018-09-16] MEDS: POTASSIUM CHLORIDE 10 MEQ TABLET.ER PO SCH (09:04)
[2018-09-16] MEDS: DOCUSATE SODIUM 100 MG CAPSULE PO SCH (09:04)
[2018-09-16] MEDS: FERROUS SULFATE 325 MG TABLET PO SCH ×2 (09:04→22:00)
[2018-09-16] MEDS: DILTIAZEM HCL 180 MG CAP.ER.24H PO SCH (09:05)
[2018-09-16] MEDS: predniSONE 1 MG TABLET PO SCH ×2 (09:05→22:00)
[2018-09-16] MEDS: METOPROLOL TARTRATE 25 MG TABLET PO SCH (09:05)
[2018-09-16] MEDS: ACETAMINOPHEN WITH CODEINE 300MG/30MG TABLET PO PRN ×2 (09:08→22:00)
[2018-09-16] MEDS: ONDANSETRON HCL 4 MG TAB.RAPDIS PO PRN (13:58)
[2018-09-16] MEDS ORDERED: WARFARIN SODIUM 5 MG TABLET PO ONE (15:31)
[2018-09-17] MEDS: PANTOPRAZOLE SODIUM 40 MG TABLET.DR PO SCH (06:53)
[2018-09-17] MEDS ORDERED: WARFARIN SODIUM 2.5 MG TABLET PO SCH (09:00)
[2018-09-17] MEDS: DOCUSATE SODIUM 100 MG CAPSULE PO SCH (09:44)
[2018-09-17] MEDS: ACETAMINOPHEN WITH CODEINE 300MG/30MG TABLET PO PRN ×2 (09:44→14:02)
[2018-09-17] MEDS: POTASSIUM CHLORIDE 10 MEQ TABLET.ER PO SCH (09:44)
[2018-09-17] MEDS: DILTIAZEM HCL 180 MG CAP.ER.24H PO SCH (09:44)
[2018-09-17] MEDS: METOPROLOL TARTRATE 25 MG TABLET PO SCH (09:45)
[2018-09-17] MEDS: FERROUS SULFATE 325 MG TABLET PO SCH ×2 (09:45→20:11)
[2018-09-17] MEDS: predniSONE 1 MG TABLET PO SCH ×2 (09:45→20:11)
[2018-09-17] MEDS: DILTIAZEM HCL 120 MG CAP.ER.24H PO SCH (09:45)
[2018-09-17] MEDS: WARFARIN SODIUM 2.5 MG TABLET PO SCH (17:44)
[2018-09-18] MEDS: PANTOPRAZOLE SODIUM 40 MG TABLET.DR PO SCH (06:04)
[2018-09-18] MEDS: ACETAMINOPHEN WITH CODEINE 300MG/30MG TABLET PO PRN ×4 (09:10→20:17)
[2018-09-18] MEDS: FERROUS SULFATE 325 MG TABLET PO SCH ×2 (09:11→20:17)
[2018-09-18] MEDS: predniSONE 1 MG TABLET PO SCH ×2 (09:11→20:17)
[2018-09-18] MEDS: POTASSIUM CHLORIDE 10 MEQ TABLET.ER PO SCH (09:11)
[2018-09-18] MEDS: DILTIAZEM HCL 120 MG CAP.ER.24H PO SCH (09:11)
[2018-09-18] MEDS: DOCUSATE SODIUM 100 MG CAPSULE PO SCH (09:11)
[2018-09-18] MEDS: DILTIAZEM HCL 180 MG CAP.ER.24H PO SCH (09:11)
[2018-09-18] MEDS: METOPROLOL TARTRATE 25 MG TABLET PO SCH (09:11)
[2018-09-18] MEDS: WARFARIN SODIUM 2.5 MG TABLET PO SCH (17:47)
[2018-09-19] MEDS: PANTOPRAZOLE SODIUM 40 MG TABLET.DR PO SCH (06:03)
[2018-09-19] MEDS ORDERED: POTASSIUM CHLORIDE 20 MEQ TABLET.ER ONE (09:04)
[2018-09-19] MEDS: DILTIAZEM HCL 180 MG CAP.ER.24H PO SCH (09:05)
[2018-09-19] MEDS: DOCUSATE SODIUM 100 MG CAPSULE PO SCH (09:05)
[2018-09-19] MEDS: DILTIAZEM HCL 120 MG CAP.ER.24H PO SCH (09:05)
[2018-09-19] MEDS: predniSONE 1 MG TABLET PO SCH ×2 (09:05→20:34)
[2018-09-19] MEDS: FERROUS SULFATE 325 MG TABLET PO SCH ×2 (09:06→20:34)
[2018-09-19] MEDS: METOPROLOL TARTRATE 25 MG TABLET PO SCH (09:06)
[2018-09-19] MEDS: POTASSIUM CHLORIDE 10 MEQ TABLET.ER PO SCH (09:20)
[2018-09-19] MEDS: ACETAMINOPHEN WITH CODEINE 300MG/30MG TABLET PO PRN ×3 (09:23→23:17)
[2018-09-19] MEDS: WARFARIN SODIUM 2.5 MG TABLET PO SCH (18:18)
[2018-09-20] MEDS: PANTOPRAZOLE SODIUM 40 MG TABLET.DR PO SCH (06:04)
[2018-09-20] MEDS: ACETAMINOPHEN WITH CODEINE 300MG/30MG TABLET PO PRN ×3 (07:17→17:51)
[2018-09-20] MEDS: FERROUS SULFATE 325 MG TABLET PO SCH ×2 (08:44→21:18)
[2018-09-20] MEDS: DILTIAZEM HCL 120 MG CAP.ER.24H PO SCH (08:45)
[2018-09-20] MEDS: METOPROLOL TARTRATE 25 MG TABLET PO SCH (08:45)
[2018-09-20] MEDS: DILTIAZEM HCL 180 MG CAP.ER.24H PO SCH (08:45)
[2018-09-20] MEDS: DOCUSATE SODIUM 100 MG CAPSULE PO SCH (08:45)
[2018-09-20] MEDS: predniSONE 1 MG TABLET PO SCH ×2 (08:45→21:22)
[2018-09-20] MEDS: POTASSIUM CHLORIDE 20 MEQ TABLET.ER PO SCH (09:18)
[2018-09-20] MEDS: ONDANSETRON HCL 4 MG TAB.RAPDIS PO PRN (09:24)
[2018-09-20] MEDS: WARFARIN SODIUM 2.5 MG TABLET PO SCH ×2 (18:26→18:27)
[2018-09-20] MEDS: POLYETHYLENE GLYCOL 3350 17 GM POWD.PACK PO PRN (18:42)
[2018-09-21] MEDS: PANTOPRAZOLE SODIUM 40 MG TABLET.DR PO SCH (06:40)
[2018-09-21] MEDS ORDERED: WARFARIN SODIUM 2.5 MG TABLET PO ONE (08:01)
[2018-09-21] MEDS: ACETAMINOPHEN WITH CODEINE 300MG/30MG TABLET PO PRN ×3 (08:09→21:00)
[2018-09-21] MEDS: DILTIAZEM HCL 120 MG CAP.ER.24H PO SCH (09:08)
[2018-09-21] MEDS: DILTIAZEM HCL 180 MG CAP.ER.24H PO SCH (09:08)
[2018-09-21] MEDS: METOPROLOL TARTRATE 25 MG TABLET PO SCH (09:09)
[2018-09-21] MEDS: POTASSIUM CHLORIDE 20 MEQ TABLET.ER PO SCH (09:09)
[2018-09-21] MEDS: DOCUSATE SODIUM 100 MG CAPSULE PO SCH (09:09)
[2018-09-21] MEDS: FERROUS SULFATE 325 MG TABLET PO SCH ×2 (09:09→21:00)
[2018-09-21] MEDS: predniSONE 1 MG TABLET PO SCH ×2 (09:09→20:59)
[2018-09-21] MEDS: WARFARIN SODIUM 2.5 MG TABLET PO SCH (17:51)
[2018-09-22] MEDS: PANTOPRAZOLE SODIUM 40 MG TABLET.DR PO SCH (06:15)
[2018-09-22] MEDS: ACETAMINOPHEN WITH CODEINE 300MG/30MG TABLET PO PRN ×3 (08:48→22:55)
[2018-09-22] MEDS: FERROUS SULFATE 325 MG TABLET PO SCH ×2 (08:50→20:44)
[2018-09-22] MEDS: DILTIAZEM HCL 120 MG CAP.ER.24H PO SCH (08:50)
[2018-09-22] MEDS: DILTIAZEM HCL 180 MG CAP.ER.24H PO SCH (08:50)
[2018-09-22] MEDS: DOCUSATE SODIUM 100 MG CAPSULE PO SCH (08:50)
[2018-09-22] MEDS: METOPROLOL TARTRATE 25 MG TABLET PO SCH (08:51)
[2018-09-22] MEDS: POTASSIUM CHLORIDE 20 MEQ TABLET.ER PO SCH (08:51)
[2018-09-22] MEDS: predniSONE 1 MG TABLET PO SCH ×2 (08:51→20:44)
[2018-09-22] MEDS: WARFARIN SODIUM 2.5 MG TABLET PO SCH (17:38)
[2018-09-23] MEDS: PANTOPRAZOLE SODIUM 40 MG TABLET.DR PO SCH (06:13)
[2018-09-23] MEDS: DILTIAZEM HCL 120 MG CAP.ER.24H PO SCH (09:29)
[2018-09-23] MEDS: POTASSIUM CHLORIDE 20 MEQ TABLET.ER PO SCH (09:29)
[2018-09-23] MEDS: METOPROLOL TARTRATE 25 MG TABLET PO SCH (09:29)
[2018-09-23] MEDS: DILTIAZEM HCL 180 MG CAP.ER.24H PO SCH (09:29)
[2018-09-23] MEDS: predniSONE 1 MG TABLET PO SCH ×2 (09:29→22:14)
[2018-09-23] MEDS: DOCUSATE SODIUM 100 MG CAPSULE PO SCH (09:29)
[2018-09-23] MEDS: FERROUS SULFATE 325 MG TABLET PO SCH ×2 (09:30→22:14)
[2018-09-23] MEDS: ACETAMINOPHEN WITH CODEINE 300MG/30MG TABLET PO PRN ×3 (10:11→22:16)
[2018-09-23] MEDS: ONDANSETRON HCL 4 MG TAB.RAPDIS PO PRN (14:46)
[2018-09-23] MEDS: WARFARIN SODIUM 2.5 MG TABLET PO SCH (16:50)
[2018-09-24] MEDS: PANTOPRAZOLE SODIUM 40 MG TABLET.DR PO SCH (05:48)
[2018-09-24] MEDS: DOCUSATE SODIUM 100 MG CAPSULE PO SCH (08:52)
[2018-09-24] MEDS: FERROUS SULFATE 325 MG TABLET PO SCH ×2 (08:52→20:20)
[2018-09-24] MEDS: POTASSIUM CHLORIDE 20 MEQ TABLET.ER PO SCH (08:53)
[2018-09-24] MEDS: METOPROLOL TARTRATE 25 MG TABLET PO SCH (08:53)
[2018-09-24] MEDS: predniSONE 1 MG TABLET PO SCH ×2 (08:53→20:20)
[2018-09-24] MEDS: DILTIAZEM HCL 120 MG CAP.ER.24H PO SCH (08:53)
[2018-09-24] MEDS: DILTIAZEM HCL 180 MG CAP.ER.24H PO SCH (08:53)
[2018-09-24] MEDS: ACETAMINOPHEN WITH CODEINE 300MG/30MG TABLET PO PRN ×3 (09:09→20:19)
[2018-09-24] MEDS: ONDANSETRON HCL 4 MG TAB.RAPDIS PO PRN (11:02)
[2018-09-24] MEDS: WARFARIN SODIUM 2.5 MG TABLET PO SCH (17:28)
[2018-09-25] MEDS: PANTOPRAZOLE SODIUM 40 MG TABLET.DR PO SCH (06:03)
[2018-09-25] MEDS: DILTIAZEM HCL 120 MG CAP.ER.24H PO SCH (08:57)
[2018-09-25] MEDS: DILTIAZEM HCL 180 MG CAP.ER.24H PO SCH (08:57)
[2018-09-25] MEDS: predniSONE 1 MG TABLET PO SCH ×2 (08:58→20:39)
[2018-09-25] MEDS: FERROUS SULFATE 325 MG TABLET PO SCH ×2 (08:58→20:39)
[2018-09-25] MEDS: DOCUSATE SODIUM 100 MG CAPSULE PO SCH (08:58)
[2018-09-25] MEDS: ACETAMINOPHEN WITH CODEINE 300MG/30MG TABLET PO PRN ×2 (08:59→17:06)
[2018-09-25] MEDS: METOPROLOL TARTRATE 25 MG TABLET PO SCH (08:59)
[2018-09-25] MEDS: POTASSIUM CHLORIDE 20 MEQ TABLET.ER PO SCH (08:59)
[2018-09-25] MEDS: WARFARIN SODIUM 2.5 MG TABLET PO SCH (17:05)
[2018-09-26] MEDS: PANTOPRAZOLE SODIUM 40 MG TABLET.DR PO SCH (06:02)
[2018-09-26] MEDS: DOCUSATE SODIUM 100 MG CAPSULE PO SCH (09:58)
[2018-09-26] MEDS: FERROUS SULFATE 325 MG TABLET PO SCH ×2 (09:58→20:41)
[2018-09-26] MEDS: predniSONE 1 MG TABLET PO SCH ×2 (09:58→20:41)
[2018-09-26] MEDS: POTASSIUM CHLORIDE 20 MEQ TABLET.ER PO SCH (09:58)
[2018-09-26] MEDS: METOPROLOL TARTRATE 25 MG TABLET PO SCH (09:59)
[2018-09-26] MEDS: DILTIAZEM HCL 180 MG CAP.ER.24H PO SCH (09:59)
[2018-09-26] MEDS: DILTIAZEM HCL 120 MG CAP.ER.24H PO SCH (10:00)
[2018-09-26] MEDS: ACETAMINOPHEN WITH CODEINE 300MG/30MG TABLET PO PRN ×3 (10:06→20:40)
[2018-09-26] MEDS: WARFARIN SODIUM 2.5 MG TABLET PO SCH (17:53)
[2018-09-27] MEDS: PANTOPRAZOLE SODIUM 40 MG TABLET.DR PO SCH (06:05)
[2018-09-27] MEDS: DOCUSATE SODIUM 100 MG CAPSULE PO SCH (09:06)
[2018-09-27] MEDS: predniSONE 1 MG TABLET PO SCH ×2 (09:06→21:11)
[2018-09-27] MEDS: METOPROLOL TARTRATE 25 MG TABLET PO SCH (09:07)
[2018-09-27] MEDS: POTASSIUM CHLORIDE 20 MEQ TABLET.ER PO SCH (09:07)
[2018-09-27] MEDS: DILTIAZEM HCL 180 MG CAP.ER.24H PO SCH (09:08)
[2018-09-27] MEDS: FERROUS SULFATE 325 MG TABLET PO SCH ×2 (09:08→21:12)
[2018-09-27] MEDS: DILTIAZEM HCL 120 MG CAP.ER.24H PO SCH (09:08)
[2018-09-27] MEDS: ACETAMINOPHEN WITH CODEINE 300MG/30MG TABLET PO PRN ×3 (09:13→17:31)
[2018-09-27] MEDS: WARFARIN SODIUM 2.5 MG TABLET PO SCH (17:27)
[2018-09-27 17:44] LABS: BASOPHILS % 0.6 (0.0-1.5); EOSINOPHILS % 2.1 % (0.0-6.8); MEAN CORPUSCULAR HEMOGLOBIN 30.3 pg (28.0-34.0); MONOCYTES % 7.3 % (0.0-11.0); NEUTROPHILS # 10.1 # k/uL (1.4-7.7)
[2018-09-28] MEDS: PANTOPRAZOLE SODIUM 40 MG TABLET.DR PO SCH (06:06)
[2018-09-28] MEDS: DILTIAZEM HCL 120 MG CAP.ER.24H PO SCH (09:33)
[2018-09-28] MEDS: predniSONE 1 MG TABLET PO SCH ×2 (09:34→20:50)
[2018-09-28] MEDS: DOCUSATE SODIUM 100 MG CAPSULE PO SCH (09:34)
[2018-09-28] MEDS: DILTIAZEM HCL 180 MG CAP.ER.24H PO SCH (09:34)
[2018-09-28] MEDS: FERROUS SULFATE 325 MG TABLET PO SCH ×2 (09:35→20:50)
[2018-09-28] MEDS: POTASSIUM CHLORIDE 20 MEQ TABLET.ER PO SCH (09:36)
[2018-09-28] MEDS: METOPROLOL TARTRATE 25 MG TABLET PO SCH (09:36)
[2018-09-28] MEDS: ACETAMINOPHEN WITH CODEINE 300MG/30MG TABLET PO PRN ×4 (09:37→22:12)
[2018-09-28] MEDS: WARFARIN SODIUM 2.5 MG TABLET PO SCH (17:42)
[2018-09-29] MEDS: PANTOPRAZOLE SODIUM 40 MG TABLET.DR PO SCH (06:31)
[2018-09-29] MEDS: FERROUS SULFATE 325 MG TABLET PO SCH ×2 (09:10→20:12)
[2018-09-29] MEDS: DILTIAZEM HCL 180 MG CAP.ER.24H PO SCH (09:10)
[2018-09-29] MEDS: predniSONE 1 MG TABLET PO SCH ×2 (09:10→20:10)
[2018-09-29] MEDS: POTASSIUM CHLORIDE 20 MEQ TABLET.ER PO SCH (09:10)
[2018-09-29] MEDS: DOCUSATE SODIUM 100 MG CAPSULE PO SCH (09:10)
[2018-09-29] MEDS: DILTIAZEM HCL 120 MG CAP.ER.24H PO SCH (09:10)
[2018-09-29] MEDS: METOPROLOL TARTRATE 25 MG TABLET PO SCH (09:11)
[2018-09-29] MEDS: ACETAMINOPHEN WITH CODEINE 300MG/30MG TABLET PO PRN ×2 (09:11→21:11)
[2018-09-29] MEDS: WARFARIN SODIUM 2.5 MG TABLET PO SCH (16:59)
[2018-09-30] MEDS: PANTOPRAZOLE SODIUM 40 MG TABLET.DR PO SCH (05:43)
[2018-09-30] MEDS: DOCUSATE SODIUM 100 MG CAPSULE PO SCH (10:05)
[2018-09-30] MEDS: predniSONE 1 MG TABLET PO SCH (10:06)
[2018-09-30] MEDS: FERROUS SULFATE 325 MG TABLET PO SCH (10:07)
[2018-09-30] MEDS: POTASSIUM CHLORIDE 20 MEQ TABLET.ER PO SCH (10:07)
[2018-09-30] MEDS: DILTIAZEM HCL 180 MG CAP.ER.24H PO SCH (10:08)
[2018-09-30] MEDS: DILTIAZEM HCL 120 MG CAP.ER.24H PO SCH (10:08)
[2018-09-30] MEDS: METOPROLOL TARTRATE 25 MG TABLET PO SCH (10:08)
[2018-09-30] MEDS: ONDANSETRON HCL 4 MG TAB.RAPDIS PO PRN (11:51)
[2018-09-30 14:28] VITALS: BP 114/61
== END 2018-09-30 14:17 | disposition home health service (06) | DRG 554 ==
LOC: SOUTH 15:00
PROVIDERS: ADMIT Family Medicine; ATTEND Family Medicine
DX: M17.11 Unilateral primary osteoarthritis, right knee (principal); R26.81 Unsteadiness on feet; I48.91 Unspecified atrial fibrillation; I50.9 Heart failure, unspecified; E11.9 Type 2 diabetes mellitus without complications; Z79.01 Long term (current) use of anticoagulants; Z96.652 Presence of left artificial knee joint
CPT/HCPCS: 36415; 80053; 85025; 85610; 97110; 97112; 97116; 97161; 97165; 97530; 97535; A9270; J3420; 99222

== ENCOUNTER 2019-02-17 16:46 | Outpatient (CLI) | payer MEDICARE, OTHER ==
[2019-02-17 17:48] LABS: eGFR (Non-African) > 60
[2019-02-18 08:53] LABS: A1C 5.8 % (<5.7)
== END 2019-02-17 16:48 ==
LOC: LAB 16:46
PROVIDERS: ATTEND Family Medicine
DX: E11.65 Type 2 diabetes mellitus with hyperglycemia (principal); I10 Essential (primary) hypertension; R07.9 Chest pain, unspecified
CPT/HCPCS: 36415; 80053; 83036; 84484

== ENCOUNTER 2019-02-27 13:53 | Emergency (ER) | payer MEDICARE, OTHER ==
--- NOTE | 2019-02-27 14:40 | ED Physician Documentation ---
General Adult - HISTORIAN Historian: patient - HPI Chief Complaint: General Adult Additional Information: Patient is a 78-year-old female who presents to the ER with c/o weakness, fatigue, nausea with occasional vomiting- she states that she has had a decrease in appetite and was not able to take her meds. She denies any fever or chills. She has been having SOA with exertion with oxygen sats dropping into the 80s and intermittent chest pain that has been going on for several days. She was seen by her PCP on 02/17/19 and troponin was negative and EKG was NSR. Onset: days ago Timing: still present Severity: moderate - ROS CONST: weakness EYES/ENT: none CVS/RESP: chest pain, shortness of breath GI/: vomiting, nausea MS/SKIN/LYMPH: none NEURO/PSYCH: headache (fell 4 weeks ago) - PAST HX Past History: A-Fib, CHF, hypertension, other (NAVEEN, Gout, RA, DJD) Other History: diabetes Type 2, other (Esophagitis) Surgeries/Procedures: cholecystectomy, hysterectomy, other (TKR (left), shoulder replacement (left), sinus surgery, cataracts) Immunizations: UTD Allergies/Adverse Reactions: Allergies Allergy/AdvReac Type Severity Reaction Status Date / Time chlorzoxazone Allergy Verified 02/27/19 15:01 levofloxacin [From Levaquin] Allergy Rash Verified 02/27/19 15:01 lisinopril Allergy Verified 02/27/19 15:01 propoxyphene napsylate Allergy Verified 02/27/19 15:01 tramadol AdvReac Vomiting Verified 02/27/19 15:01 Home Medications: Ambulatory Orders Medication Instructions Recorded Docusate Sodium [Colace] 100 mg PO DAILY PRN 05/22/17 Multivitamin [Daily Multiple 1 each PO DAILY 05/22/17 Vitamin] predniSONE [Deltasone] 5 mg PO BID 05/22/17 Hydroxychloroquine Sulfate 200 mg PO BID 09/17/17 Rivaroxaban [Xarelto] 20 mg PO DAILY 02/27/19 - SOCIAL HX Smoking History: non-smoker Alcohol Use: none Drug Use: none - FAMILY HX Family History: No - VITAL SIGNS Vital Signs: Vital Signs Temp Pulse Resp BP Pulse Ox 114/61 09/30/18 08:31 - REVIEWED ASSESSMENTS Nursing Assessment Reviewed: Yes Vitals Reviewed: Yes Progress - Progress Progress: 15:16 Contacted [facility] and spoke to Circulation Analyst Emelyn- will wait for Xray results. 15:45 Spoke with Emelyn in regards to CXR and we have no telemetry beds available- she will reach out to Dr. Fine for transfer 16:30 Patient has had > 500cc out in urine. She is resting comfortably- son is at the bedside. Dr. Caruso is accepting. ED Results Lab/Radiology - Radiology Radiology Impressions: CT HEAD HISTORY: FALL AND HIT HEAD 4 WKS AGO. PAIN. TECHNIQUE: Scans through the brain were obtained without contrast. Comparison is made to the prior CT dated February 11, 2013. FINDINGS: Bone window settings demonstrates no calvarial abnormality. Paranasal sinuses and mastoid air cells included on the study are normal. Atrophy is present increased since the prior CT. This is mild. There is no evidence of intra-or extra axial mass lesion, midline shift, subdural hematoma, hemorrhage, or focal CVA identified. Lateral ventricles and basilar cisterns are normal. IMPRESSION: Mild atrophy, otherwise unremarkable unenhanced head CT, not significantly changed since prior study. PA and lateral chest Clinical history: Shortness of breath. Findings: Examination of the chest in PA and lateral views with no prior films for comparison demonstrates cardiomegaly and aortic atherosclerosis. There is pulmonary vascular congestion with bilateral effusions blunting the costophrenic angles. Monitor leads superimpose the chest. Impression: 1. Cardiomegaly and aortic atherosclerosis. 2. Bilateral pleural effusions. 3. Pulmonary vascular congestion consistent with congestive heart failure. - Orders Orders: ED Orders Category Date Time Status Continuous EKG monitoring Q30M Care 02/27/19 14:22 Active Continuous Pulse Oximetry Q30M Care 02/27/19 14:[address] IV Lock 1T Care 02/27/19 14:22 Active CHEST 2VIEW [RAD] Stat Exams 02/27/[address] BRAIN W/O CONTRAST Stat Exams 02/27/19 Ordered CBC/PLATELET/DIFF Routine Lab 02/27/19 14:22 Ordered CKMB Stat Lab 02/27/19 Ordered CMP Routine Lab 02/27/19 14:22 Ordered CREATINE KINASE Routine Lab 02/27/19 14:22 Ordered NTBNP Stat Lab 02/27/19 Ordered TROPONIN I Stat Lab 02/27/19 Ordered Oxygen Daily Oxygen 02/27/19 14:30 Ordered EKG WITH COMPARISON Stat Ther 02/27/19 14:22 Ordered General Adult Physical Exam - PHYSICAL EXAM GENERAL APPEARANCE: mild distress EENT: eye inspection normal, ENT inspection normal, pharynx normal, dry mucous membranes NECK: normal inspection, supple RESPIRATORY: rales (bilbasilar) CVS: equal pulses, irregularly irregular rhy ABDOMEN: soft, normal bowel sounds SKIN: warm/dry, pallor EXTREMITIES: non-tender, normal range of motion, no edema NEURO: oriented X3, CN's nml as tested, motor nml, sensation nml, mood/affect nml, cognition normal Discharge Clincal Impression: Congestive heart failure Referrals: Yoshi Huerta MD [Primary Care Provider] - 2 Days Condition: Stable Disposition: 02 [facility] Decision to Admit: NO Decision Time: 16:34
[2019-02-27] MEDS: 0.9 % SODIUM CHLORIDE 500 ML IV ONE ×2 (14:46)
[2019-02-27 14:49] LABS: BASOPHILS % 0.5 % (0.0-1.5); NEUTROPHILS # 12.8 # k/uL (1.4-7.7)
[2019-02-27 14:56] LABS: eGFR (Non-African) > 60
[2019-02-27] MEDS: FUROSEMIDE 40 MG/4 ML VIAL IVP ONE (15:21)
--- NOTE | 2019-02-27 15:43 | Diagnostic Imaging Report ---
LINDA MENENDEZ ED [facility] [address] [facility] [address] [place], [place]. [address] Report Submission Date: Feb 27, 2019 3:40:03 PM CDT Patient Study Name: TORRES IRVIN Date: Feb 27, 2019 2:56:40 PM CDT Modality Type: CT\SR Gender: F Description: CT HEAD W/O CON : 44 Institution: [facility] Physician: LINDA MENENDEZ ED CT HEAD HISTORY: FALL AND HIT HEAD 4 WKS AGO. PAIN. TECHNIQUE: Scans through the brain were obtained without contrast. Comparison is made to the prior CT dated February 11, 2013. FINDINGS: Bone window settings demonstrates no calvarial abnormality. Paranasal sinuses and mastoid air cells included on the study are normal. Atrophy is present increased since the prior CT. This is mild. There is no evidence of intra-or extra axial mass lesion, midline shift, subdural hematoma, hemorrhage, or focal CVA identified. Lateral ventricles and basilar cisterns are normal. IMPRESSION: Mild atrophy, otherwise unremarkable unenhanced head CT, not significantly changed since prior study. Electronically signed on Feb 27, 2019 3:40:03 PM CDT by: Bryce NELSON
--- NOTE | 2019-02-27 15:44 | Diagnostic Imaging Report ---
LINDA MENENDEZ ED [facility] [address] [facility] [address] Report Submission Date: Feb 27, 2019 3:41:43 PM CDT Patient Study Name: TORRES IRVIN Date: Feb 27, 2019 2:39:03 PM CDT Modality Type: DX Gender: F Description: CHEST 2VIEW : 44 Institution: [facility] Physician: LINDA MENENDEZ ED PA and lateral chest Clinical history: Shortness of breath. Findings: Examination of the chest in PA and lateral views with no prior films for comparison demonstrates cardiomegaly and aortic atherosclerosis. There is pulmonary vascular congestion with bilateral effusions blunting the costophrenic angles. Monitor leads superimpose the chest. Impression: 1. Cardiomegaly and aortic atherosclerosis. 2. Bilateral pleural effusions. 3. Pulmonary vascular congestion consistent with congestive heart failure. Electronically signed on Feb 27, 2019 3:41:43 PM CDT by: Donnie NELSON
[2019-02-27 17:00] VITALS: BP 163/76
[2019-02-28 06:46] LABS: COLOR,URINE YELLOW (YELLOW)
[2019-02-28 06:47] LABS: APPEARANCE,URINE CLEAR (CLEAR); OCCULT BLOOD,URINE NEGATIVE (NEGATIVE); UROBILINOGEN URINE 0.2 Eu (0.2-1.0)
== END 2019-02-27 16:57 | disposition short-term general hospital (02) ==
LOC: ED 13:53
DX: I99.8 Other disorder of circulatory system (principal); I11.0 Hypertensive heart disease with heart failure; I50.9 Heart failure, unspecified; I25.10 Atherosclerotic heart disease of native coronary artery without angina pectoris; J90 Pleural effusion, not elsewhere classified
CPT/HCPCS: 70450; 71046; 80053; 81002; 82550; 82553; 83880; 84484; 85025; 93005; 96361; 96374; 99283; 99284; J1940; J7060; S1016

== ENCOUNTER 2019-03-28 14:50 | Inpatient (IN) | payer MEDICARE, OTHER ==
[2019-03-28 15:23] VITALS: BMI 40.6
--- NOTE | 2019-03-28 17:55 | History and Physical Report ---
History of Present Illnes - History of Present Illness Reason for Visit: weakness follow long illness History of Present Illness: 78yo female who ws recently admitted to [facility] on February 25 for bilaterally pneumonia and sepsis. This was treated initially with ceftriaxone and azithromycin. Symptoms did not improve and patient was switched to meropenem andvancomycin. Patient medical stay was complicated by respiratory failure (treated with supplemental oxygen), diabetes mellitus, atrial fibrillation with rapid ventricular response ( was taken off Xerelto), acute on chronic congestive heart failure ( EF 28%), acute kidney injury (did not require dialysis), pericardial effusion without cardiac tamponode Cardiac paracentesis done with 700 cc removed, bilaterally thoracentesis). Patient had some hyponatremia which has resolved. Chronic medical conditions include GERDs, RA, obstructive sleep apnea. During her course of stay patient has become profoundly week. It was felt that she would benefit from further skilled therapy in order to help her to return home. - Past Medical History Cardiac: HTN Pulmonary: COPD (on home oxygen), Sleep Apnea (not able to tolerate CPAP) Gastrointestinal: Other (esophagitis) Psych: Anxiety, Depression Musculoskeletal: Chronic low back pain Rheumatologic: Gout, Rheumatoid arthritis, Other (degenerative disc disease) Endocrine: Other (gout) - Past Surgical History Past Surgical History: Cholecystectomy, Hysterectomy, Total Knee Replacement (left), Other (shoulder surgery) - Past Family History Mother Family History: Cancer ( ALL), (40yo) Father Family History: Hypertension, (32yo from a heart condition) - Past Social History Smoke: No 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 negative: Fever, Chills Eyes: negative: vision change, conjunctivae inflammation ENT: negative: Ear Pain, Ear Discharge, Nose Pain, Nose Discharge, Nose Congestion, Mouth Pain, Throat Swelling Respiratory: Cough, Dry. negative: Shortness of Breath, Hemoptysis, SOB with Excertion, Pleuritic Pain, Sputum, Wheezing Cardiovascular: Palpitations. negative: Chest Pain, Orthopnea, Paroxysmal Noc. Dyspnea, Edema, Light Headedness Gastrointestinal: negative: Nausea, Vomiting, Abdominal Pain, Diarrhea, Constipation, Melena, Hematochezia Genitourinary: Frequency. negative: Dysuria, Incontinence Musculoskeletal: Shoulder Pain, Back Pain Skin: negative: Rash Neurological: Weakness. negative: Numbness, Incoordination, Change in Speech, C onfusion, Seizures - Medications/Allergies Allergies/Adverse Reactions: Allergies Allergy/AdvReac Type Severity Reaction Status Date / Time chlorzoxazone Allergy Verified 02/27/19 15:01 levofloxacin [From Levaquin] Allergy Rash Verified 02/27/19 15:01 lisinopril Allergy Verified 02/27/19 15:01 propoxyphene napsylate Allergy Verified 02/27/19 15:01 tramadol AdvReac Vomiting Verified 02/27/19 15:01 Home Medications: Home Medications Acetaminophen with Codeine [Acetaminophen-Cod #3 Tablet] 1 - 2 each PO Q4 PRN 03/28/19 Acetazolamide [Diamox] 500 mg PO Q12 03/28/19 Albuterol Sulfate [Proair Respiclick] 2 puff INH Q6 PRN 03/28/19 Carvedilol [Coreg] 12.5 mg PO BID 03/28/19 Docusate Sodium [Colace] 200 mg PO HS 03/28/19 Ferrous Sulfate 325 mg PO BRKFST 03/28/19 Fluticasone Propion/Salmeterol [Fluticasone-Salmeterol 250-50] 1 each IH BID 03/28/19 Insulin Glargine,Hum.rec.anlog [Lantus Solostar] 14 unit SQ HS 03/28/19 Insulin Lispro [Humalog] 5 unit SQ TID 03/28/19 Miconazole Nitrate 1 appl TOP BID 03/28/19 Prednisone 2.5 mg PO AM 03/28/19 Prednisone 5 mg PO 1800 03/28/19 Torsemide [Demadex] 20 mg PO BID 03/28/19 dilTIAZem HCL [Cardizem CD] 180 mg PO DAILY 03/28/19 Exam - Exam Vital Signs: Vital Signs (72 hours) 03/28/19 03/28/19 15:12 15:14 Temperature 97.8 F 97.8 F Pulse Rate [ 71 71 Left] Respiratory 20 18 Rate Blood Pressure 106/58 106/58 [Left Arm] Blood Pressure 106/58 [Right Arm] O2 Sat by Pulse 96 96 Oximetry General: Alert, Oriented to Person, Oriented to Place, Oriented to Time, Cooperative HEENT: Atraumatic, PERRLA, EOMI, Mouth Mucous membr. moist/[place], Nose Mucous membr. moist/[place], Dentition Normal Neck: No: Stridor, Rigidity Carotids: WNL Thyroid: WNL Lungs: Clear to auscultation, Normal air movement, Speaks full Sentences, Rales (few rales in bases) Cardiovascular: Normal S1, Normal S2, No murmurs, Regularly Irregular (sounds like PAC, may be A fib) Murmur: No: Systolic Murmur, Diastolic Murmur Abdomen: Normal bowel sounds, Soft, No tenderness, No hepatospenomegaly, No masses Integumentary: Normal, [place], Warm Extremities: No clubbing, No cyanosis, Other (2 plus edema to feet bilaterally) Neurological: Normal speech, Strength Equal Bilat, Normal tone, Sensation intact, Cranial nerves 3-12 NL, Reflexes 2+. No: Normal gait Psych/Mental Status: Mental status NL, Mood NL, Appropriate Affect, Intact Judgment Assessment/Plan - Assessment/Plan (1) Congestive heart failure Status: Acute Current Visit: No (2) Depressive disorder Status: Acute Current Visit: No (3) Iron deficiency anemia Status: Acute Current Visit: No (4) Pedal edema Status: Acute Current Visit: No (5) Atrial fibrillation Status: Chronic Current Visit: No (6) Diabetes type 2, controlled Status: Chronic Current Visit: No Qualifiers: Diabetes mellitus manager terminal insulin use: without manager terminal use (7) Essential hypertension Status: Chronic Current Visit: No (8) Rheumatoid arthritis Status: Chronic Current Visit: No (9) Sleep apnea Status: Chronic Current Visit: No VTE Assessment - RISK FACTOR SCORE VTE RISK FACTOR SCORES: AGE OVER 60 YEARS, ANTICIPATED BED CONFINEMENT OR IMMOBILIZATION > 24 HOURS, CONGESTIVE HEART FAILURE OR MYOCARDIAL INFARCTION, LEG SWELLING, ULCERS, VARICOSE VEINS - RISK VTE HIGH RISK: SCORE OF 3-4 (RISK PROXIMAL DVT 4-8%) PROPHYLAXIS NEEDED
[2019-03-28] MEDS ORDERED: ALBUTEROL 90MCG/PUFF INHALER IH PRN (18:41)
[2019-03-28] MEDS ORDERED: ACETAMINOPHEN 500 MG TABLET PO PRN (18:48)
[2019-03-28] MEDS: DOCUSATE SODIUM 100 MG CAPSULE PO SCH (20:31)
[2019-03-28] MEDS: FLUTICASONE/SALMETEROL 250-50 INHALER IH SCH (20:31)
[2019-03-28] MEDS: MELATONIN 3 MG TABLET PO SCH (20:32)
[2019-03-28] MEDS: CARVEDILOL 12.5 MG TABLET PO SCH (20:32)
[2019-03-28] MEDS: predniSONE 10 MG TABLET PO SCH (20:32)
[2019-03-28] MEDS: INSULIN GLARGINE,HUM.REC.ANLOG 100 UNIT/ML PEN.INJCTR SQ SCH (22:05)
[2019-03-29] MEDS: PANTOPRAZOLE SODIUM 40 MG TABLET.DR PO SCH (06:29)
[2019-03-29] MEDS: FUROSEMIDE 40 MG TABLET PO SCH ×2 (06:29→13:12)
[2019-03-29] MEDS: CARVEDILOL 12.5 MG TABLET PO SCH ×2 (08:09→20:26)
[2019-03-29] MEDS: CITALOPRAM HYDROBROMIDE 20 MG TABLET PO SCH (08:09)
[2019-03-29] MEDS: ENOXAPARIN SODIUM 30 MG/0.3 ML DISP.SYRIN SQ SCH (08:10)
[2019-03-29] MEDS: CHOLECALCIFEROL (VIT-D3) 1,000 UNIT TABLET PO SCH (08:10)
[2019-03-29] MEDS: predniSONE 1 MG TABLET PO SCH (08:10)
[2019-03-29] MEDS: FLUTICASONE/SALMETEROL 250-50 INHALER IH SCH ×2 (08:14→20:25)
[2019-03-29] MEDS: INSULIN REGULAR, HUMAN 100 UNIT/ML 10ML VIAL SQ SCH ×3 (08:17→16:43)
[2019-03-29] MEDS: DOCUSATE SODIUM 100 MG CAPSULE PO SCH (20:25)
[2019-03-29] MEDS: MELATONIN 3 MG TABLET PO SCH (20:26)
[2019-03-29] MEDS: predniSONE 10 MG TABLET PO SCH (20:26)
[2019-03-29] MEDS: INSULIN GLARGINE,HUM.REC.ANLOG 100 UNIT/ML PEN.INJCTR SQ SCH (21:14)
[2019-03-29] MEDS: ACETAMINOPHEN WITH CODEINE 300MG/30MG TABLET PO PRN (21:32)
[2019-03-30] MEDS: PANTOPRAZOLE SODIUM 40 MG TABLET.DR PO SCH (05:45)
[2019-03-30] MEDS: FUROSEMIDE 40 MG TABLET PO SCH ×2 (05:45→14:23)
[2019-03-30] MEDS: INSULIN REGULAR, HUMAN 100 UNIT/ML 10ML VIAL SQ SCH ×3 (07:44→16:49)
[2019-03-30] MEDS: predniSONE 1 MG TABLET PO SCH (09:28)
[2019-03-30] MEDS: ENOXAPARIN SODIUM 30 MG/0.3 ML DISP.SYRIN SQ SCH (09:28)
[2019-03-30] MEDS: CHOLECALCIFEROL (VIT-D3) 1,000 UNIT TABLET PO SCH (09:29)
[2019-03-30] MEDS: CITALOPRAM HYDROBROMIDE 20 MG TABLET PO SCH (09:29)
[2019-03-30] MEDS: CARVEDILOL 12.5 MG TABLET PO SCH ×2 (09:30→20:45)
[2019-03-30] MEDS: FLUTICASONE/SALMETEROL 250-50 INHALER IH SCH ×2 (09:30→20:47)
[2019-03-30] MEDS ORDERED: predniSONE 10 MG TABLET PO ONE (20:34)
[2019-03-30] MEDS: INSULIN GLARGINE,HUM.REC.ANLOG 100 UNIT/ML PEN.INJCTR SQ SCH (20:41)
[2019-03-30] MEDS: DOCUSATE SODIUM 100 MG CAPSULE PO SCH (20:44)
[2019-03-30] MEDS: MELATONIN 3 MG TABLET PO SCH (20:45)
[2019-03-30] MEDS: predniSONE 10 MG TABLET PO SCH (20:45)
[2019-03-31] MEDS: PANTOPRAZOLE SODIUM 40 MG TABLET.DR PO SCH (06:17)
[2019-03-31] MEDS: FUROSEMIDE 40 MG TABLET PO SCH ×2 (06:17→13:40)
[2019-03-31] MEDS: INSULIN REGULAR, HUMAN 100 UNIT/ML 10ML VIAL SQ SCH ×3 (07:36→17:05)
[2019-03-31] MEDS: ENOXAPARIN SODIUM 30 MG/0.3 ML DISP.SYRIN SQ SCH (08:36)
[2019-03-31] MEDS: CITALOPRAM HYDROBROMIDE 20 MG TABLET PO SCH (08:36)
[2019-03-31] MEDS: FLUTICASONE/SALMETEROL 250-50 INHALER IH SCH ×2 (08:37→20:28)
[2019-03-31] MEDS: CHOLECALCIFEROL (VIT-D3) 1,000 UNIT TABLET PO SCH (08:37)
[2019-03-31] MEDS: CARVEDILOL 12.5 MG TABLET PO SCH ×2 (08:37→20:28)
[2019-03-31] MEDS: predniSONE 1 MG TABLET PO SCH (08:41)
[2019-03-31 12:32] LABS: BASOPHILS % 0.2 % (0.0-1.5); NEUTROPHILS # 7.5 # k/uL (1.4-7.7)
[2019-03-31] MEDS: INSULIN GLARGINE,HUM.REC.ANLOG 100 UNIT/ML PEN.INJCTR SQ SCH (19:53)
[2019-03-31] MEDS: DOCUSATE SODIUM 100 MG CAPSULE PO SCH (20:28)
[2019-03-31] MEDS: predniSONE 10 MG TABLET PO SCH (20:28)
[2019-03-31] MEDS: MELATONIN 3 MG TABLET PO SCH (20:28)
[2019-04-01] MEDS: ACETAMINOPHEN WITH CODEINE 300MG/30MG TABLET PO PRN ×2 (00:45→23:05)
[2019-04-01] MEDS: FUROSEMIDE 40 MG TABLET PO SCH ×2 (06:20→14:24)
[2019-04-01] MEDS: PANTOPRAZOLE SODIUM 40 MG TABLET.DR PO SCH (06:20)
[2019-04-01] MEDS: FLUTICASONE/SALMETEROL 250-50 INHALER IH SCH ×2 (08:22→21:00)
[2019-04-01] MEDS: CITALOPRAM HYDROBROMIDE 20 MG TABLET PO SCH (08:23)
[2019-04-01] MEDS: CARVEDILOL 12.5 MG TABLET PO SCH ×2 (08:24→20:57)
[2019-04-01] MEDS: CHOLECALCIFEROL (VIT-D3) 1,000 UNIT TABLET PO SCH (08:24)
[2019-04-01] MEDS: ENOXAPARIN SODIUM 30 MG/0.3 ML DISP.SYRIN SQ SCH (08:31)
[2019-04-01] MEDS: predniSONE 1 MG TABLET PO SCH (08:33)
[2019-04-01] MEDS: INSULIN REGULAR, HUMAN 100 UNIT/ML 10ML VIAL SQ SCH ×3 (09:18→17:07)
[2019-04-01] MEDS: DOCUSATE SODIUM 100 MG CAPSULE PO SCH (20:57)
[2019-04-01] MEDS: predniSONE 10 MG TABLET PO SCH (20:57)
[2019-04-01] MEDS: MELATONIN 3 MG TABLET PO SCH (20:57)
[2019-04-01] MEDS: INSULIN GLARGINE,HUM.REC.ANLOG 100 UNIT/ML PEN.INJCTR SQ SCH (21:04)
[2019-04-02] MEDS: FUROSEMIDE 40 MG TABLET PO SCH ×2 (06:20→13:45)
[2019-04-02] MEDS: PANTOPRAZOLE SODIUM 40 MG TABLET.DR PO SCH (06:20)
[2019-04-02] MEDS: INSULIN REGULAR, HUMAN 100 UNIT/ML 10ML VIAL SQ SCH ×3 (07:34→16:31)
[2019-04-02] MEDS: FLUTICASONE/SALMETEROL 250-50 INHALER IH SCH ×2 (08:23→20:44)
[2019-04-02] MEDS: CARVEDILOL 12.5 MG TABLET PO SCH ×2 (08:24→20:42)
[2019-04-02] MEDS: predniSONE 1 MG TABLET PO SCH (08:25)
[2019-04-02] MEDS: CITALOPRAM HYDROBROMIDE 20 MG TABLET PO SCH (08:25)
[2019-04-02] MEDS: ENOXAPARIN SODIUM 30 MG/0.3 ML DISP.SYRIN SQ SCH (08:25)
[2019-04-02] MEDS: CHOLECALCIFEROL (VIT-D3) 1,000 UNIT TABLET PO SCH (08:25)
[2019-04-02] MEDS: MELATONIN 3 MG TABLET PO SCH (20:42)
[2019-04-02] MEDS: DOCUSATE SODIUM 100 MG CAPSULE PO SCH (20:43)
[2019-04-02] MEDS: predniSONE 10 MG TABLET PO SCH (20:43)
[2019-04-02] MEDS: INSULIN GLARGINE,HUM.REC.ANLOG 100 UNIT/ML PEN.INJCTR SQ SCH (20:47)
[2019-04-03] MEDS: FUROSEMIDE 40 MG TABLET PO SCH ×2 (06:06→13:50)
[2019-04-03] MEDS: PANTOPRAZOLE SODIUM 40 MG TABLET.DR PO SCH (06:07)
[2019-04-03] MEDS: INSULIN REGULAR, HUMAN 100 UNIT/ML 10ML VIAL SQ SCH ×3 (07:53→16:40)
[2019-04-03] MEDS: FLUTICASONE/SALMETEROL 250-50 INHALER IH SCH ×2 (09:27→22:25)
[2019-04-03] MEDS: CARVEDILOL 12.5 MG TABLET PO SCH ×2 (09:28→22:28)
[2019-04-03] MEDS: CHOLECALCIFEROL (VIT-D3) 1,000 UNIT TABLET PO SCH (09:29)
[2019-04-03] MEDS: ENOXAPARIN SODIUM 30 MG/0.3 ML DISP.SYRIN SQ SCH (09:29)
[2019-04-03] MEDS: CITALOPRAM HYDROBROMIDE 20 MG TABLET PO SCH (09:30)
[2019-04-03] MEDS: predniSONE 1 MG TABLET PO SCH (09:33)
[2019-04-03] MEDS: INSULIN GLARGINE,HUM.REC.ANLOG 100 UNIT/ML PEN.INJCTR SQ SCH (22:26)
[2019-04-03] MEDS: MELATONIN 3 MG TABLET PO SCH (22:28)
[2019-04-03] MEDS: predniSONE 10 MG TABLET PO SCH (22:28)
[2019-04-03] MEDS: DOCUSATE SODIUM 100 MG CAPSULE PO SCH (22:28)
[2019-04-04] MEDS: FUROSEMIDE 40 MG TABLET PO SCH ×2 (05:40→13:02)
[2019-04-04] MEDS: PANTOPRAZOLE SODIUM 40 MG TABLET.DR PO SCH (05:40)
[2019-04-04] MEDS: CHOLECALCIFEROL (VIT-D3) 1,000 UNIT TABLET PO SCH (09:02)
[2019-04-04] MEDS: ENOXAPARIN SODIUM 30 MG/0.3 ML DISP.SYRIN SQ SCH (09:02)
[2019-04-04] MEDS: FLUTICASONE/SALMETEROL 250-50 INHALER IH SCH ×2 (09:02→20:41)
[2019-04-04] MEDS: CARVEDILOL 12.5 MG TABLET PO SCH ×2 (09:02→20:05)
[2019-04-04] MEDS: predniSONE 1 MG TABLET PO SCH (09:03)
[2019-04-04] MEDS: CITALOPRAM HYDROBROMIDE 20 MG TABLET PO SCH (09:03)
[2019-04-04] MEDS: INSULIN REGULAR, HUMAN 100 UNIT/ML 10ML VIAL SQ SCH ×3 (09:07→16:49)
[2019-04-04] MEDS: predniSONE 10 MG TABLET PO SCH (20:05)
[2019-04-04] MEDS: DOCUSATE SODIUM 100 MG CAPSULE PO SCH (20:05)
[2019-04-04] MEDS: INSULIN GLARGINE,HUM.REC.ANLOG 100 UNIT/ML PEN.INJCTR SQ SCH (20:10)
[2019-04-04] MEDS: MELATONIN 3 MG TABLET PO SCH (22:34)
[2019-04-04] MEDS: ACETAMINOPHEN WITH CODEINE 300MG/30MG TABLET PO PRN (22:34)
[2019-04-05] MEDS: FUROSEMIDE 40 MG TABLET PO SCH ×2 (06:29→14:18)
[2019-04-05] MEDS: PANTOPRAZOLE SODIUM 40 MG TABLET.DR PO SCH (06:29)
[2019-04-05] MEDS: INSULIN REGULAR, HUMAN 100 UNIT/ML 10ML VIAL SQ SCH ×3 (07:18→16:28)
[2019-04-05 07:33] LABS: BASOPHILS % 0.3 % (0.0-1.5); NEUTROPHILS # 5.4 # k/uL (1.4-7.7)
[2019-04-05 07:51] LABS: eGFR (Non-African) 37
[2019-04-05] MEDS: CITALOPRAM HYDROBROMIDE 20 MG TABLET PO SCH (09:02)
[2019-04-05] MEDS: FLUTICASONE/SALMETEROL 250-50 INHALER IH SCH ×2 (09:02→22:56)
[2019-04-05] MEDS: CARVEDILOL 12.5 MG TABLET PO SCH ×2 (09:03→22:58)
[2019-04-05] MEDS: CHOLECALCIFEROL (VIT-D3) 1,000 UNIT TABLET PO SCH (09:03)
[2019-04-05] MEDS: predniSONE 1 MG TABLET PO SCH (09:03)
[2019-04-05] MEDS: ENOXAPARIN SODIUM 30 MG/0.3 ML DISP.SYRIN SQ SCH (09:04)
[2019-04-05] MEDS: DOCUSATE SODIUM 100 MG CAPSULE PO SCH (22:57)
[2019-04-05] MEDS: predniSONE 10 MG TABLET PO SCH (22:58)
[2019-04-05] MEDS: MELATONIN 3 MG TABLET PO SCH ×2 (22:59→23:00)
[2019-04-05] MEDS: INSULIN GLARGINE,HUM.REC.ANLOG 100 UNIT/ML PEN.INJCTR SQ SCH (23:05)
[2019-04-06] MEDS: PANTOPRAZOLE SODIUM 40 MG TABLET.DR PO SCH (06:08)
[2019-04-06] MEDS: FUROSEMIDE 40 MG TABLET PO SCH ×2 (06:08→14:02)
[2019-04-06] MEDS: INSULIN REGULAR, HUMAN 100 UNIT/ML 10ML VIAL SQ SCH ×3 (07:09→16:40)
[2019-04-06] MEDS: CHOLECALCIFEROL (VIT-D3) 1,000 UNIT TABLET PO SCH (08:12)
[2019-04-06] MEDS: CARVEDILOL 12.5 MG TABLET PO SCH ×2 (08:12→20:01)
[2019-04-06] MEDS: CITALOPRAM HYDROBROMIDE 20 MG TABLET PO SCH (08:13)
[2019-04-06] MEDS: predniSONE 1 MG TABLET PO SCH (08:13)
[2019-04-06] MEDS: ENOXAPARIN SODIUM 30 MG/0.3 ML DISP.SYRIN SQ SCH (08:13)
[2019-04-06] MEDS: FLUTICASONE/SALMETEROL 250-50 INHALER IH SCH ×2 (08:14→20:00)
[2019-04-06] MEDS: predniSONE 10 MG TABLET PO SCH (20:01)
[2019-04-06] MEDS: DOCUSATE SODIUM 100 MG CAPSULE PO SCH (20:01)
[2019-04-06] MEDS: INSULIN GLARGINE,HUM.REC.ANLOG 100 UNIT/ML PEN.INJCTR SQ SCH (20:03)
[2019-04-06] MEDS: ACETAMINOPHEN WITH CODEINE 300MG/30MG TABLET PO PRN (22:32)
[2019-04-07] MEDS: FUROSEMIDE 40 MG TABLET PO SCH ×2 (06:07→14:53)
[2019-04-07] MEDS: PANTOPRAZOLE SODIUM 40 MG TABLET.DR PO SCH (06:07)
[2019-04-07] MEDS: FLUTICASONE/SALMETEROL 250-50 INHALER IH SCH ×2 (08:56→21:20)
[2019-04-07] MEDS: INSULIN REGULAR, HUMAN 100 UNIT/ML 10ML VIAL SQ SCH ×3 (08:58→17:26)
[2019-04-07] MEDS: CHOLECALCIFEROL (VIT-D3) 1,000 UNIT TABLET PO SCH (08:59)
[2019-04-07] MEDS: CITALOPRAM HYDROBROMIDE 20 MG TABLET PO SCH (08:59)
[2019-04-07] MEDS: CARVEDILOL 12.5 MG TABLET PO SCH ×2 (08:59→21:20)
[2019-04-07] MEDS: ENOXAPARIN SODIUM 30 MG/0.3 ML DISP.SYRIN SQ SCH (08:59)
[2019-04-07] MEDS: predniSONE 1 MG TABLET PO SCH (09:00)
[2019-04-07] MEDS: INSULIN GLARGINE,HUM.REC.ANLOG 100 UNIT/ML PEN.INJCTR SQ SCH (21:15)
[2019-04-07] MEDS: predniSONE 10 MG TABLET PO SCH (21:20)
[2019-04-07] MEDS: DOCUSATE SODIUM 100 MG CAPSULE PO SCH (21:20)
[2019-04-07] MEDS: ACETAMINOPHEN WITH CODEINE 300MG/30MG TABLET PO PRN (23:13)
[2019-04-08] MEDS: FUROSEMIDE 40 MG TABLET PO SCH ×2 (06:15→14:19)
[2019-04-08] MEDS: PANTOPRAZOLE SODIUM 40 MG TABLET.DR PO SCH (06:15)
[2019-04-08] MEDS: ACETAMINOPHEN WITH CODEINE 300MG/30MG TABLET PO PRN ×2 (07:22→21:43)
[2019-04-08] MEDS: INSULIN REGULAR, HUMAN 100 UNIT/ML 10ML VIAL SQ SCH ×3 (07:23→17:26)
[2019-04-08] MEDS: CITALOPRAM HYDROBROMIDE 20 MG TABLET PO SCH (09:18)
[2019-04-08] MEDS: CARVEDILOL 12.5 MG TABLET PO SCH ×2 (09:18→21:43)
[2019-04-08] MEDS: ENOXAPARIN SODIUM 30 MG/0.3 ML DISP.SYRIN SQ SCH (09:18)
[2019-04-08] MEDS: CHOLECALCIFEROL (VIT-D3) 1,000 UNIT TABLET PO SCH (09:19)
[2019-04-08] MEDS: predniSONE 1 MG TABLET PO SCH (09:20)
[2019-04-08] MEDS: FLUTICASONE/SALMETEROL 250-50 INHALER IH SCH ×2 (09:21→21:40)
[2019-04-08] MEDS: INSULIN GLARGINE,HUM.REC.ANLOG 100 UNIT/ML PEN.INJCTR SQ SCH (21:39)
[2019-04-08] MEDS: MELATONIN 3 MG TABLET PO SCH (21:43)
[2019-04-08] MEDS: DOCUSATE SODIUM 100 MG CAPSULE PO SCH (21:44)
[2019-04-08] MEDS: predniSONE 10 MG TABLET PO SCH (21:44)
[2019-04-09] MEDS: PANTOPRAZOLE SODIUM 40 MG TABLET.DR PO SCH (06:21)
[2019-04-09] MEDS: FUROSEMIDE 40 MG TABLET PO SCH ×2 (06:21→13:06)
[2019-04-09] MEDS: INSULIN REGULAR, HUMAN 100 UNIT/ML 10ML VIAL SQ SCH ×3 (07:30→17:43)
[2019-04-09] MEDS: FLUTICASONE/SALMETEROL 250-50 INHALER IH SCH ×2 (09:50→22:53)
[2019-04-09] MEDS: predniSONE 1 MG TABLET PO SCH (09:51)
[2019-04-09] MEDS: ENOXAPARIN SODIUM 30 MG/0.3 ML DISP.SYRIN SQ SCH (09:51)
[2019-04-09] MEDS: CARVEDILOL 12.5 MG TABLET PO SCH ×2 (09:52→22:48)
[2019-04-09] MEDS: CHOLECALCIFEROL (VIT-D3) 1,000 UNIT TABLET PO SCH (09:53)
[2019-04-09] MEDS: CITALOPRAM HYDROBROMIDE 20 MG TABLET PO SCH (09:53)
[2019-04-09] MEDS: ACETAMINOPHEN WITH CODEINE 300MG/30MG TABLET PO PRN (22:48)
[2019-04-09] MEDS: predniSONE 10 MG TABLET PO SCH (22:48)
[2019-04-09] MEDS: DOCUSATE SODIUM 100 MG CAPSULE PO SCH (22:48)
[2019-04-09] MEDS: MELATONIN 3 MG TABLET PO SCH (22:48)
[2019-04-09] MEDS: INSULIN GLARGINE,HUM.REC.ANLOG 100 UNIT/ML PEN.INJCTR SQ SCH (22:54)
[2019-04-10] MEDS: FUROSEMIDE 40 MG TABLET PO SCH ×2 (05:50→13:12)
[2019-04-10] MEDS: PANTOPRAZOLE SODIUM 40 MG TABLET.DR PO SCH (05:50)
[2019-04-10] MEDS: INSULIN REGULAR, HUMAN 100 UNIT/ML 10ML VIAL SQ SCH ×3 (07:56→16:56)
[2019-04-10] MEDS: FLUTICASONE/SALMETEROL 250-50 INHALER IH SCH ×2 (10:02→22:30)
[2019-04-10] MEDS: ENOXAPARIN SODIUM 30 MG/0.3 ML DISP.SYRIN SQ SCH (10:02)
[2019-04-10] MEDS: CARVEDILOL 12.5 MG TABLET PO SCH ×2 (10:02→22:31)
[2019-04-10] MEDS: predniSONE 1 MG TABLET PO SCH (10:02)
[2019-04-10] MEDS: ACETAMINOPHEN WITH CODEINE 300MG/30MG TABLET PO PRN ×2 (10:04→22:30)
[2019-04-10] MEDS: CHOLECALCIFEROL (VIT-D3) 1,000 UNIT TABLET PO SCH (10:04)
[2019-04-10] MEDS: CITALOPRAM HYDROBROMIDE 20 MG TABLET PO SCH (10:06)
--- NOTE | 2019-04-10 18:27 | Inpatient Progress Note ---
Subjective - Required Recertification Statement I anticipate X number of days because-include discharge plan: 10 days - Review of Systems Events since last encounter: .patient seem to be making improvement. Patient ability to ambulate and transfer have improved since admission to [facility]. Patient is participating well with physical and occupational therapy. Patient chronic medical problems appear to be stable. Cardiovascular: Denies: Chest Pain Gastrointestinal: Other (Has had BM). Denies: Nausea, Vomiting, Abdominal Pain, Diarrhea, Constipation Genitourinary: Denies: Dysuria, Frequency Musculoskeletal: Back Pain Neurological: Denies: Weakness, Numbness, Incoordination Objective - Exam Vitals and I&O: Vital Signs Temp 97.8 F 04/10/19 09:00 Pulse 91 H 04/10/19 09:00 Resp 18 04/10/19 09:00 BP 120/70 04/10/19 09:00 Pulse Ox 96 04/10/19 09:00 Intake & Output 04/09/19 04/10/19 04/10/19 23:59 11:59 23:59 Intake Total 268 747 9245 Balance 883 135 3130 Weight 86.636 kg Intake: Oral 856 461 4712 Other: Voiding Method Toilet Toilet # Voids 3 3 General: Alert, Oriented to Person, Oriented to Place, Oriented to Time, Cooperative HEENT: Atraumatic, PERRLA, EOMI, Mouth Mucous membr. moist/[place], Nose Mucous membr. moist/[place] Neck: Supple, No JVD, No thyromegaly Lungs: Clear to auscultation, Normal air movement, Speaks full Sentences Cardiovascular: Normal S1, Normal S2, No murmurs, Irregularly Irregular, Atrial Fib Abdomen: Normal bowel sounds, Soft, No tenderness, No hepatospenomegaly, No masses Skin: Normal, [place], Warm, Dry Neurological: Normal speech, Strength Equal Bilat, Normal tone Psych/Mental Status: Mental status NL, Mood NL, Appropriate Affect, Intact Judgment - Results Results: Laboratory Results WBC 7.20 K/ul (4.00-12.00) 04/05/19 07:32 RBC 3.43 M/ul (3.90-5.20) L 04/05/19 07:32 Hgb 9.9 g/dL (11.5-16.0) L 04/05/19 07:32 Hct 30.2 % (34.5-46.5) L 04/05/19 07:32 MCV 88.0 fl (80.0-100.0) 04/05/19 07:32 MCH 28.7 pg (28.0-34.0) 04/05/19 07:32 MCHC 32.6 g/dL (30.0-36.0) 04/05/19 07:32 RDW 17.7 % (11.3-14.3) H 04/05/19 07:32 Plt Count 135 K/mm3 (130-400) 04/05/19 07:32 Neut % (Auto) 74.9 % (39.0-79.0) 04/05/19 07:32 Lymph % (Auto) 14.9 % (16.0-50.0) L 04/05/19 07:32 [place] % (Auto) 8.2 % (0.0-11.0) 04/05/19 07:32 Eos % (Auto) 1.7 % (0.0-6.8) 04/05/19 07:32 Baso % (Auto) 0.3 % (0.0-1.5) 04/05/19 07:32 Neut # (Auto) 5.4 # k/uL (1.4-7.7) 04/05/19 07:32 Lymph # (Auto) 1.1 # k/uL (0.6-4.0) 04/05/19 07:32 [place] # (Auto) 0.6 # k/uL (0.0-0.9) 04/05/19 07:32 Eos # (Auto) 0.1 # k/uL (0.0-0.6) 04/05/19 07:32 Baso # (Auto) 0.0 # k/uL (0.0-0.5) 04/05/19 07:32 Sodium 142 mmol/L (137-145) 04/05/19 07:32 Potassium 3.4 mmol/L (3.5-5.1) L 04/05/19 07:32 Chloride 101 mmol/L (98-107) 04/05/19 07:32 Carbon Dioxide 32 mmol/L (22-30) H 04/05/19 07:32 Anion Gap 12.4 04/05/19 07:32 BUN 98 mg/dL (7-17) H 04/05/19 07:32 Creatinine 1.45 mg/dL (0.52-1.04) H 04/05/19 07:32 Estimated Creat Clear 52 04/05/19 07:32 Est GFR ( Amer) > 60 (60-) 04/05/19 07:32 Est GFR (Non-Af Amer) 37 (60-) L 04/05/19 07:32 Glucose 109 mg/dL (74-106) H 04/05/19 07:32 Calcium 9.0 mg/dL (8.4-10.2) 04/05/19 07:32 Total Bilirubin 0.7 mg/dL (0.2-1.3) 04/05/19 07:32 AST 20 U/L (15-46) 04/05/19 07:32 ALT 16 U/L (13-69) 04/05/19 07:32 Alkaline Phosphatase 89 U/L (38-126) 04/05/19 07:32 Total Protein 6.2 g/dL (6.3-8.2) L 04/05/19 07:32 Albumin 3.7 g/dL (3.5-5.0) 04/05/19 07:32 Assessment/Plan - Assessment/Plan (1) Congestive heart failure Status: Chronic Current Visit: No Qualifiers: Heart failure chronicity: chronic Assessment: stable (2) Depressive disorder Status: Chronic Current Visit: No Assessment: improved (3) Iron deficiency anemia Status: Chronic Current Visit: No Qualifiers: Iron deficiency anemia type: other iron deficiency Qualified Code(s): D50.8 - Other iron deficiency anemias (4) Pedal edema Status: Acute Current Visit: No Assessment: slowly improving (5) Atrial fibrillation Status: Chronic Current Visit: No Qualifiers: Atrial fibrillation type: chronic Qualified Code(s): I48.2 - Chronic atrial fibrillation Assessment: stable (6) Diabetes type 2, controlled Status: Chronic Current Visit: No Qualifiers: Diabetes mellitus senior living insulin use: with longwall shearer operator use Diabetes mellitus complication status: without complication Qualified Code(s): E11.9 - Type 2 diabetes mellitus without complications; Z79.4 - FDC (current) use of insulin (7) Essential hypertension Status: Chronic Current Visit: No Assessment: stable (8) Rheumatoid arthritis Status: Chronic Current Visit: No Qualifiers: Rheumatoid arthritis location: multiple sites Rheumatoid factor presence: with rheumatoid factor Qualified Code(s): M05.79 - Rheumatoid arthritis with rheumatoid factor of multiple sites without organ or systems involvement Assessment: stable (9) Sleep apnea Status: Chronic Current Visit: No Qualifiers: Sleep apnea type: obstructive Qualified Code(s): G47.33 - Obstructive sleep apnea (adult) (pediatric) Assessment: stable
--- NOTE | 2019-04-10 18:29 | Inpatient Progress Note ---
Subjective - Required Recertification Statement I anticipate X number of days because-include discharge plan: 3 days - Review of Systems Events since last encounter: patient continues to do well with her ambulation. Patient stated her strength is getting much better. Patient is much steadier on her feet which she has been previously. Patient chronic medical problems appear to be fairly stable at this time. Diabetes mellitus been stable without any hypoglycemic. atrial fibrilla tion has been stable without any tachycardia bradycardia. Hypertension has been stable without a TIAs or CVA symptoms. Objective - Exam Vitals and I&O: Vital Signs Temp 97.8 F 04/10/19 09:00 Pulse 91 H 04/10/19 09:00 Resp 18 04/10/19 09:00 BP 120/70 04/10/19 09:00 Pulse Ox 96 04/10/19 09:00 Intake & Output 04/09/19 04/10/19 04/10/19 23:59 11:59 23:59 Intake Total 986 727 8698 Balance 719 870 9391 Weight 86.636 kg Intake: Oral 685 510 9455 Other: Voiding Method Toilet Toilet # Voids 3 3 General: Alert, Oriented to Person, Oriented to Place, Oriented to Time Neck: Supple Lungs: Clear to auscultation, Normal air movement, Speaks full Sentences. No: Wheezes, Rales, Rhonchi Cardiovascular: Normal S1, Normal S2, No murmurs, Gallops, Irregularly Irregular Abdomen: Normal bowel sounds, Soft, No tenderness Extremities: Other (patient does have some pitting edema to the lower extremities but improved over admission) Skin: Rash (patient does have some mild rash noted to the door some of her right foot.) Neurological: Normal speech, Strength Equal Bilat, Normal tone, Sensation intact. No: Normal gait (improved) Psych/Mental Status: Mental status NL, Mood NL, Appropriate Affect, Intact J udgment - Results Results: Laboratory Results WBC 7.20 K/ul (4.00-12.00) 04/05/19 07:32 RBC 3.43 M/ul (3.90-5.20) L 04/05/19 07:32 Hgb 9.9 g/dL (11.5-16.0) L 04/05/19 07:32 Hct 30.2 % (34.5-46.5) L 04/05/19 07:32 MCV 88.0 fl (80.0-100.0) 04/05/19 07:32 MCH 28.7 pg (28.0-34.0) 04/05/19 07:32 MCHC 32.6 g/dL (30.0-36.0) 04/05/19 07:32 RDW 17.7 % (11.3-14.3) H 04/05/19 07:32 Plt Count 135 K/mm3 (130-400) 04/05/19 07:32 Neut % (Auto) 74.9 % (39.0-79.0) 04/05/19 07:32 Lymph % (Auto) 14.9 % (16.0-50.0) L 04/05/19 07:32 [place] % (Auto) 8.2 % (0.0-11.0) 04/05/19 07:32 Eos % (Auto) 1.7 % (0.0-6.8) 04/05/19 07:32 Baso % (Auto) 0.3 % (0.0-1.5) 04/05/19 07:32 Neut # (Auto) 5.4 # k/uL (1.4-7.7) 04/05/19 07:32 Lymph # (Auto) 1.1 # k/uL (0.6-4.0) 04/05/19 07:32 [place] # (Auto) 0.6 # k/uL (0.0-0.9) 04/05/19 07:32 Eos # (Auto) 0.1 # k/uL (0.0-0.6) 04/05/19 07:32 Baso # (Auto) 0.0 # k/uL (0.0-0.5) 04/05/19 07:32 Sodium 142 mmol/L (137-145) 04/05/19 07:32 Potassium 3.4 mmol/L (3.5-5.1) L 04/05/19 07:32 Chloride 101 mmol/L (98-107) 04/05/19 07:32 Carbon Dioxide 32 mmol/L (22-30) H 04/05/19 07:32 Anion Gap 12.4 04/05/19 07:32 BUN 98 mg/dL (7-17) H 04/05/19 07:32 Creatinine 1.45 mg/dL (0.52-1.04) H 04/05/19 07:32 Estimated Creat Clear 52 04/05/19 07:32 Est GFR ( Amer) > 60 (60-) 04/05/19 07:32 Est GFR (Non-Af Amer) 37 (60-) L 04/05/19 07:32 Glucose 109 mg/dL (74-106) H 04/05/19 07:32 Calcium 9.0 mg/dL (8.4-10.2) 04/05/19 07:32 Total Bilirubin 0.7 mg/dL (0.2-1.3) 04/05/19 07:32 AST 20 U/L (15-46) 04/05/19 07:32 ALT 16 U/L (13-69) 04/05/19 07:32 Alkaline Phosphatase 89 U/L (38-126) 04/05/19 07:32 Total Protein 6.2 g/dL (6.3-8.2) L 04/05/19 07:32 Albumin 3.7 g/dL (3.5-5.0) 04/05/19 07:32 Assessment/Plan - Assessment/Plan (1) Congestive heart failure Status: Acute Current Visit: No (2) Depressive disorder Status: Acute Current Visit: No Assessment: improved (3) Iron deficiency anemia Status: Chronic Current Visit: No Qualifiers: Iron deficiency anemia type: other iron deficiency Qualified Code(s): D50.8 - Other iron deficiency anemias Assessment: stable. HGB improved to 9.9 (4) Pedal edema Status: Acute Current Visit: No Assessment: stable improved. Be leave that the rash that the patient has may be related to her peel edema. Will go ahead and start wrapping her legs with bernabe wraps (5) Atrial fibrillation Status: Chronic Current Visit: No Assessment: stable on home medications (6) Diabetes type 2, controlled Status: Chronic Current Visit: No Qualifiers: Diabetes mellitus adjunct faculty for medical terminology insulin use: with adjunct faculty for medical terminology use Diabetes mellitus complication status: without complication Qualified Code(s): E11.9 - Type 2 diabetes mellitus without complications; Z79.4 - moth exterminator (current) use of insulin Assessment: stable with no hypoglycemia noted. (7) Essential hypertension Status: Chronic Current Visit: No (8) Rheumatoid arthritis Status: Chronic Current Visit: No Qualifiers: Rheumatoid arthritis location: multiple sites Rheumatoid factor presence: with rheumatoid factor Qualified Code(s): M05.79 - Rheumatoid arthritis with rheumatoid factor of multiple sites without organ or systems involvement Assessment: stable (9) Sleep apnea Status: Chronic Current Visit: No Qualifiers: Sleep apnea type: obstructive Qualified Code(s): G47.33 - Obstructive sleep apnea (adult) (pediatric) Assessment: stable, patient is wearing CPAP.
--- NOTE | 2019-04-10 18:47 | Discharge Summary ---
Discharge Summary - Discharge [place] Admission Date: 03/28/19 (SNF) Discharge Date: 04/11/19 (Home) Discharge To: Home Health History of Present Illness: 78yo female who ws recently admitted to [facility] on February 25 for bilaterally pneumonia and sepsis. This was treated initially with ceftriaxone and azithromycin. Symptoms did not improve and patient was switched to meropenem andvancomycin. Patient medical stay was complicated by respiratory failure (treated with supplemental oxygen), diabetes mellitus, atrial fibrillation with rapid ventricular response ( was taken off Xerelto), acute on chronic congestive heart failure ( EF 28%), acute kidney injury (did not require dialysis), pericardial effusion without cardiac tamponode Cardiac paracentesis done with 700 cc removed, bilaterally thoracentesis). Patient had some hyponatremia which has resolved. Chronic medical conditions include GERDs, RA, obstructive sleep apnea. During her course of stay patient has become profoundly week. It was felt that she would benefit from further skilled therapy in order to help her to return home. Condition at Discharge: Stable Home Medications: Ambulatory Orders Medication Instructions Recorded Acetaminophen with Codeine 1 - 2 each PO Q4 PRN 03/28/19 [Acetaminophen-Cod #3 Tablet] Acetazolamide [Diamox] 500 mg PO Q12 03/28/19 Albuterol Sulfate [Proair 2 puff INH Q6 PRN 03/28/19 Respiclick] Carvedilol [Coreg] 12.5 mg PO BID 03/28/19 Docusate Sodium [Colace] 200 mg PO HS 03/28/19 Ferrous Sulfate 325 mg PO BRKFST 03/28/19 Fluticasone Propion/Salmeterol 1 each IH BID 03/28/19 [Fluticasone-Salmeterol 250-50] Insulin Glargine,Hum.rec.anlog 14 unit SQ HS 03/28/19 [Lantus Solostar] Insulin Lispro [Humalog] 5 unit SQ TID 03/28/19 Prednisone 2.5 mg PO AM 03/28/19 Prednisone 5 mg PO 1800 03/28/19 Torsemide [Demadex] 20 mg PO BID 03/28/19 dilTIAZem HCL [Cardizem CD] 180 mg PO DAILY 03/28/19 Acetaminophen [Tylenol Extra 500 mg PO Q4H PRN tablet 04/10/19 Strength] Cholecalciferol [Vitamin D-3] 2,000 unit PO DAILY tablet 04/10/19 Citalopram Hydrobromide [Celexa] 10 mg PO DAILY tablet 04/10/19 Consultations this Visit: None Procedures this Visit: None Allergies/Adverse Reactions: Allergies Allergy/AdvReac Type Severity Reaction Status Date / Time chlorzoxazone Allergy Verified 02/27/19 15:01 levofloxacin [From Levaquin] Allergy Rash Verified 02/27/19 15:01 lisinopril Allergy Verified 02/27/19 15:01 propoxyphene napsylate Allergy Verified 02/27/19 15:01 tramadol AdvReac Vomiting Verified 02/27/19 15:01 - Final Diagnosis (1) Gait disturbance Problems: improved, will continue with home health (2) Congestive heart failure Problems: stable (3) Depressive disorder Problems: stable (4) Iron deficiency anemia Problems: stable (5) Pedal edema Problems: gradually improving (6) Atrial fibrillation Problems: stable (7) Diabetes type 2, controlled Problems: stable, no hypo or hyperglycemia noted (8) Essential hypertension Problems: stable (9) Rheumatoid arthritis Problems: stable
[2019-04-10] MEDS: INSULIN GLARGINE,HUM.REC.ANLOG 100 UNIT/ML PEN.INJCTR SQ SCH (22:30)
[2019-04-10] MEDS: DOCUSATE SODIUM 100 MG CAPSULE PO SCH (22:31)
[2019-04-10] MEDS: MELATONIN 3 MG TABLET PO SCH (22:32)
[2019-04-10] MEDS: predniSONE 10 MG TABLET PO SCH (22:32)
[2019-04-11] MEDS: PANTOPRAZOLE SODIUM 40 MG TABLET.DR PO SCH (06:20)
[2019-04-11] MEDS: FUROSEMIDE 40 MG TABLET PO SCH (06:20)
[2019-04-11] MEDS: INSULIN REGULAR, HUMAN 100 UNIT/ML 10ML VIAL SQ SCH (07:29)
[2019-04-11 08:36] VITALS: BP 137/83
[2019-04-11] MEDS: FLUTICASONE/SALMETEROL 250-50 INHALER IH SCH (08:57)
[2019-04-11] MEDS: CARVEDILOL 12.5 MG TABLET PO SCH (08:57)
[2019-04-11] MEDS: CITALOPRAM HYDROBROMIDE 20 MG TABLET PO SCH (08:58)
[2019-04-11] MEDS: predniSONE 1 MG TABLET PO SCH (08:59)
[2019-04-11] MEDS: ENOXAPARIN SODIUM 30 MG/0.3 ML DISP.SYRIN SQ SCH (08:59)
[2019-04-11] MEDS: CHOLECALCIFEROL (VIT-D3) 1,000 UNIT TABLET PO SCH (08:59)
== END 2019-04-11 12:27 | disposition home health service (06) | DRG 948 ==
LOC: SOUTH 14:50
PROVIDERS: ADMIT Family Medicine; ATTEND Family Medicine
DX: R53.1 Weakness (principal); R26.89 Other abnormalities of gait and mobility; I11.0 Hypertensive heart disease with heart failure; I50.9 Heart failure, unspecified; E11.9 Type 2 diabetes mellitus without complications; G47.33 Obstructive sleep apnea (adult) (pediatric); J44.9 Chronic obstructive pulmonary disease, unspecified; K21.0 Gastro-esophageal reflux disease with esophagitis; F41.9 Anxiety disorder, unspecified; F32.9 Major depressive disorder, single episode, unspecified; G89.29 Other chronic pain; M54.5 Low back pain; M10.9 Gout, unspecified; D50.8 Other iron deficiency anemias; M19.90 Unspecified osteoarthritis, unspecified site; I48.2 Chronic atrial fibrillation; M05.79 Rheumatoid arthritis with rheumatoid factor of multiple sites without organ or systems involvement; R21 Rash and other nonspecific skin eruption; Z90.49 Acquired absence of other specified parts of digestive tract; Z99.81 Dependence on supplemental oxygen; Z90.710 Acquired absence of both cervix and uterus; Z96.652 Presence of left artificial knee joint; Z88.6 Allergy status to analgesic agent; Z88.1 Allergy status to other antibiotic agents; Z88.8 Allergy status to other drugs, medicaments and biological substances; Z79.51 Long term (current) use of inhaled steroids; Z79.52 Long term (current) use of systemic steroids; Z79.899 Other long term (current) drug therapy; Z79.4 Long term (current) use of insulin; Z87.01 Personal history of pneumonia (recurrent); Z87.891 Personal history of nicotine dependence
CPT/HCPCS: 36415; 80053; 85025; 99221; J1650; J1815; J7512

== ENCOUNTER 2019-04-21 14:18 | Inpatient (IN) | payer MEDICARE, OTHER ==
--- NOTE | 2019-04-21 14:31 | ED Physician Documentation ---
General Adult - HISTORIAN Historian: patient - HPI Stated Complaint: weakness Chief Complaint: Weakness Onset: days ago (1) Timing: still present Severity: moderate Further Comments: yes (Per her son she was in the hospital last month had skilled care and she was fully recovered she has been home approx 2 weeks. She states she started to get weak last night/ today. Her son with her states her speech was "garbled" last night however all his assesment of a stroke scale was normal today. She has had increased weakness overall not one sided . She has not felt her output has been normal. She had nausea and one episode of vomiting last night. None today. No fever.) - ROS CONST: recent illness EYES/ENT: none CVS/RESP: none GI/: none MS/SKIN/LYMPH: none NEURO/PSYCH: dizziness, difficulty walking. denies: headache, fainting, tingling, numbness, difficulty with speech, anxiety - PAST HX Past History: A-Fib, hypertension Other History: other (CHF ) Immunizations: UTD Allergies/Adverse Reactions: Allergies Allergy/AdvReac Type Severity Reaction Status Date / Time chlorzoxazone Allergy Verified 04/21/19 15:07 levofloxacin [From Levaquin] Allergy Rash Verified 04/21/19 15:07 lisinopril Allergy Verified 04/21/19 15:07 propoxyphene napsylate Allergy Verified 04/21/19 15:07 tramadol AdvReac Vomiting Verified 04/21/19 15:07 Home Medications: Ambulatory Orders Medication Instructions Recorded Acetaminophen with Codeine 1 - 2 each PO Q4 PRN 03/28/19 [Acetaminophen-Cod #3 Tablet] Albuterol Sulfate [Proair 2 puff INH Q6 PRN 03/28/19 Respiclick] Carvedilol [Coreg] 12.5 mg PO BID 03/28/19 Docusate Sodium [Colace] 200 mg PO HS 03/28/19 Ferrous Sulfate 325 mg PO BRKFST 03/28/19 Insulin Glargine,Hum.rec.anlog 14 unit SQ HS 03/28/19 [Lantus Solostar] Prednisone 2.5 mg PO AM 03/28/19 Acetazolamide [Diamox] 500 mg PO Q12 #30 tablet 04/11/19 Prednisone 5 mg PO DIRECTED #135 tab 04/11/19 Diltiazem HCl [Diltiazem 24Hr Cd] 1 tab PO DAILY 04/21/19 Hydroxychloroquine Sulfate 1 tab PO BID 04/21/19 [Plaquenil] Metformin HCl 500 mg PO DAILY 04/21/19 Potassium Chloride [Klor-Con M10] 1 tab PO DAILY 04/21/19 Rivaroxaban [Xarelto] 1 tab PO DAILY 04/21/19 - SOCIAL HX Smoking History: non-smoker Alcohol Use: none Drug Use: none - FAMILY HX Family History: No - VITAL SIGNS Vital Signs: Vital Signs Temp Pulse Resp BP Pulse Ox 137/83 04/11/19 08:34 - REVIEWED ASSESSMENTS Nursing Assessment Reviewed: Yes Vitals Reviewed: Yes Progress - Progress Progress: 1550: discussed results with Dr Huerta he is agreeable to acute admission - discussed with son he is agreeable as well DG ED Results Lab/Radiology - Radiology Radiology Impressions: HISTORY: 78-year-old female with weakness COMPARISON: Chest x-ray dated 02/27/2019. TECHNIQUE: Single portable AP view of the chest was performed. FINDINGS: No pneumothorax, consolidative infiltrates, or pulmonary edema. The heart is markedly enlarged. There is a left shoulder arthroplasty. There is thoracic degenerative disc disease and mild dextroscoliosis. IMPRESSION: Cardiomegaly without evidence of acute intrathoracic process. Electronically signed on Apr 21, 2019 3:29:23 PM CDT by: Sarwat Monteiro HISTORY: 78-year-old female with weakness. COMPARISON: None available. TECHNIQUE: Noncontrast axial CT images of the head were performed. Sagittal and coronal reformatted images were obtained. FINDINGS: There is mild global brain atrophy. There is mild decreased attenuation in the periventricular white matter. No intracranial hemorrhage, mass, midline shift, hydrocephalus, or evidence of acute large vessel infarct. There are postoperative changes of bilateral cataract extraction surgery. There is mild mucosal thickening in the maxillary sinuses. The mastoid air cells and middle ear spaces are clear. There is mild hyperostosis frontalis interna. IMPRESSION: 1. Global brain atrophy and chronic ischemic changes, without evidence of acute infarct or other acute intracranial process. 2. Mild bilateral maxillary sinus disease. Electronically signed on Apr 21, 2019 3:31:35 PM CDT by: Sarwat Monteiro General Adult Physical Exam - PHYSICAL EXAM GENERAL APPEARANCE: no distress EENT: eye inspection normal, ENT inspection normal, pharynx normal, no signs of dehydration, TIMOTHY, no nystagmus, TM's nml NECK: normal inspection, thyroid normal RESPIRATORY: no resp distress, chest non-tender, other (decreased left and right lower lobes ) CVS: equal pulses, no murmur, no gallop, PMI nml, no JVD, no friction rub, irregularly irregular rhy. No: JVD present ABDOMEN: soft, no organomegaly, normal bowel sounds, no abdominal bruit, no distension, non-tender BACK: normal inspection, no CVA tenderness SKIN: normal color, warm/dry, NR, INT, PAL, DR EXTREMITIES: non-tender, normal range of motion, no evidence of injury, edema (non pitting ) NEURO: oriented X3, CN's nml as tested, motor nml, sensation nml, mood/affect nml Discharge Clincal Impression: Muscle weakness Congestive heart failure Qualifiers: Heart failure type: unspecified Heart failure chronicity: acute on chronic Qualified Code(s): I50.9 - Heart failure, unspecified Condition: Fair Disposition: ADMITTED INPATIENT Decision to Admit: [id number] Date of Decison to Admit: 04/21/19 Decision Time: 16:00
[2019-04-21] MEDS ORDERED: 0.9 % SODIUM CHLORIDE 1,000 ML IV ONE (14:40)
[2019-04-21 15:05] LABS: BASOPHILS % 0.4 % (0.0-1.5); NEUTROPHILS # 8.7 # k/uL (1.4-7.7)
[2019-04-21 15:21] LABS: eGFR (Non-African) > 60
[2019-04-21] MEDS ORDERED: ALBUTEROL 90MCG/PUFF INHALER IH PRN (16:19)
[2019-04-21 16:51] VITALS: BMI 37.0
[2019-04-21 16:54] LABS: APPEARANCE,URINE CLEAR (CLEAR); COLOR,URINE YELLOW (YELLOW); OCCULT BLOOD,URINE NEGATIVE (NEGATIVE); UROBILINOGEN URINE 0.2 Eu (0.2-1.0)
[2019-04-21] MEDS: 0.9 % SODIUM CHLORIDE 1,000 ML IV SCH (17:12)
[2019-04-21] MEDS: FUROSEMIDE 20 MG/2 ML VIAL IVP SCH (17:26)
[2019-04-21] MEDS ORDERED: RIVAROXABAN 10 MG TABLET PO SCH (18:00)
--- NOTE | 2019-04-21 18:24 | History and Physical Report ---
History of Present Illnes - History of Present Illness Reason for Visit: general weakness History of Present Illness: Patient is a 78-year-old female who was recently admitted to [facility] for pneumonia. After a lengthy illness patient was admitted to [facility] for skilled services. Patient with discharged on April 10 with home health services.according to the patient and family members patient did well over the first week. However over the last 45 days patient is had progressing weakness that is described as being generalized. Patient has had episodes where she seemed to be confused with some possible slurred speech. Patient was not noted to have any focal neurological deficit associated with motor or sensory modalities. On the day of admission patient complained of some increasing shortness of breath and generalized weakness. Patient was not hardly able to ambulate. Patient was subsequently brought to the emergency room for evaluation. In the emergency room it was felt that the patient was having some congestive heart failure and patient was subsequently admitted to the hospital for further care and evaluation. Patient was seen by her director immunology last week and was advised that everything looked stable. Patient did have an echocardiogram done at that time however her ejection fraction is not known. Previous echocardiogram showed an ejection fraction of 28%. Patient stated her peel edema has improved since she has been discharged. Patient denies any orthopnea symptoms. Patient is not had any chest pain or chest pressure. Patient stated she is not had any appetite and had not been eating well over the last week. Patient denies any specific reason why she had lost her appetite. As far as the family members no patient has been taking medication but there is some questions that she is been taken properly at the right time and the right dose. - Past Medical History Cardiac: CHF, HTN Pulmonary: COPD (on home oxygen), Sleep Apnea (not able to tolerate CPAP) [employer]: Other (sleep apnea) Gastrointestinal: Other (esophagitis) Psych: Anxiety, Depression Musculoskeletal: Chronic low back pain Rheumatologic: Gout, Rheumatoid arthritis, Other (degenerative disc disease) Endocrine: Other (gout) - Past Surgical History Past Surgical History: Cholecystectomy, Hysterectomy, Total Knee Replacement (left), Other (shoulder surgery) - Past Family History Mother Family History: Cancer ( ALL), (40yo) Father Family History: Hypertension, (32yo from a heart condition) - Past Social History Smoke: No 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 negative: Fever, Chills, Sweats Eyes: negative: pain, vision change, redness ENT: negative: Ear Pain, Ear Discharge, Nose Pain, Nose Discharge, Nose Congestion, Throat Swelling Respiratory: Cough, Dry, Shortness of Breath (at baseline), SOB with Excertion. negative: Hemoptysis, Pleuritic Pain, Sputum Cardiovascular: Light Headedness. negative: Chest Pain, Palpitations, Orthopnea, Paroxysmal Noc. Dyspnea, Edema Gastrointestinal: Nausea, Abdominal Pain (mild occasional cramping). negative: Vomiting, Constipation, Melena, Hematochezia Genitourinary: negative: Dysuria, Frequency, Incontinence, Hematuria, Retention Musculoskeletal: Back Pain. negative: Neck Pain, Leg Pain Skin: Rash Neurological: Weakness, Confusion. negative: Numbness, Incoordination, Change in Speech, Seizures - Medications/Allergies Allergies/Adverse Reactions: Allergies Allergy/AdvReac Type Severity Reaction Status Date / Time chlorzoxazone Allergy Verified 04/21/19 15:07 levofloxacin [From Levaquin] Allergy Rash Verified 04/21/19 15:07 lisinopril Allergy Verified 04/21/19 15:07 propoxyphene napsylate Allergy Verified 04/21/19 15:07 tramadol AdvReac Vomiting Verified 04/21/19 15:07 Home Medications: Home Medications Diltiazem HCl [Diltiazem 24Hr Cd] 1 tab PO DAILY 04/21/19 Hydroxychloroquine Sulfate [Plaquenil] 1 tab PO BID 04/21/19 Metformin HCl 500 mg PO DAILY 04/21/19 Potassium Chloride [Klor-Con M10] 1 tab PO DAILY 04/21/19 Rivaroxaban [Xarelto] 1 tab PO DAILY 04/21/19 Current Inpatient Medications: Current Inpatient Medications Albuterol Sulfate (Ventolin Hfa) 2 puff IH Q4H PRN PRN Reason: Bronchodialation Stop: 05/21/19 16:18 Carvedilol (Coreg) 12.5 mg PO BID YULIA Stop: 05/21/19 20:59 Citalopram Hydrobromide (Celexa) 10 mg PO DAILY YULIA Stop: 05/22/19 08:59 Diltiazem HCl (Cardizem Cd) 180 mg PO DAILY YULIA Stop: 05/22/19 08:59 Docusate Sodium (Colace) 200 mg PO HS YULIA Stop: 05/21/19 20:59 Furosemide (Lasix) 20 mg IVP QDAY YULIA Stop: 05/21/19 16:59 Last Admin: 04/21/19 17:26 Dose: 20 mg Hydroxychloroquine Sulfate (Plaquenil (Nf)) 200 mg PO BID YULIA Stop: 05/21/19 20:59 Sodium Chloride (Normal Saline) 1,000 mls @ 50 mls/hr IV Q10H YULIA Stop: 05/21/19 16:14 Last Admin: 04/21/19 17:12 Dose: 50 mls/hr Insulin Glargine (Basaglar Kwik-Pen) 14 unit SQ HS YULIA Stop: 05/21/19 20:59 Metformin HCl (Glucophage) 500 mg PO DAILY YULIA Stop: 05/22/19 08:59 Pantoprazole Sodium (Protonix) 40 mg PO 0700 YULIA Stop: 05/22/19 06:59 Potassium Chloride (Klor-Con 10) 10 meq PO DAILY YULIA Stop: 05/22/19 08:59 Rivaroxaban (Xarelto) 20 mg PO 1800 YULIA Stop: 05/21/19 17:59 Last Admin: 04/21/19 17:26 Dose: 20 mg Exam - Exam Vital Signs: Vital Signs (72 hours) 04/21/19 04/21/19 04/21/19 14:23 14:39 15:39 Temperature 98.0 F Pulse Rate 79 93 H Pulse Rate [ Left Pulse ox] Pulse Rate [ Left] Pulse Rate [ 117 H Right Pulse ox] Respiratory 19 Rate Blood Pressure [Left Arm] Blood Pressure 116/95 [Right Arm] O2 Sat by Pulse 99 Oximetry 04/21/19 04/21/19 04/21/19 16:00 16:01 16:28 Temperature 98.2 F Pulse Rate 95 H Pulse Rate [ 90 Left Pulse ox] Pulse Rate [ Left] Pulse Rate [ Right Pulse ox] Respiratory 20 Rate Blood Pressure 136/75 [Left Arm] Blood Pressure [Right Arm] O2 Sat by Pulse 97 97 Oximetry 04/21/19 04/21/19 04/21/19 16:37 16:49 16:54 Temperature 98.0 F 98.9 F Pulse Rate 71 Pulse Rate [ 90 Left Pulse ox] Pulse Rate [ Left] Pulse Rate [ 77 Right Pulse ox] Respiratory 17 18 Rate Blood Pressure 136/75 [Left Arm] Blood Pressure 107/58 [Right Arm] O2 Sat by Pulse 99 97 Oximetry 04/21/19 17:37 Temperature 98.2 F Pulse Rate Pulse Rate [ Left Pulse ox] Pulse Rate [ 79 Left] Pulse Rate [ Right Pulse ox] Respiratory 20 Rate Blood Pressure 114/64 [Left Arm] Blood Pressure [Right Arm] O2 Sat by Pulse 98 Oximetry General: Alert, Oriented to Person, Oriented to Place, Oriented to Time, Cooperative, Mild distress HEENT: PERRLA, Mouth Mucous membr. moist/[place], Nose Mucous membr. moist/[place], Hearing Grossly Normal. No: Pharyngeal Erythema, Tonsillar Exudate Neck: Normal Range of Motion. No: Stridor, Rigidity, Lymphadenopathy Carotids: Within normal limits Thyroid: Within normal limits Lungs: Normal air movement, Speaks full Sentences, Rales (in bases) Cardiovascular: Normal S1, Normal S2, Irregularly Irregular Abdomen: Normal bowel sounds, Soft, No tenderness, No hepatospenomegaly, No masses, Distended Integumentary: Normal, [place], Warm Extremities: Other (edema 2 plus) Neurological: Normal speech, Strength Equal Bilat, Normal tone, Sensation intact, Cranial nerves 3-12 NL. No: Normal gait Psych/Mental Status: Mental status NL, Mood NL ( ? epression), Appropriate Affect, Intact Judgment - Laboratory Results Laboratory Results: Laboratory Results 04/21/19 04/21/19 04/21/19 14:39 14:39 14:50 WBC 10.30 RBC 3.41 L Hgb 9.8 L Hct 30.2 L MCV 89.0 MCH 28.8 MCHC 32.6 RDW 15.9 H Plt Count 138 Neut % (Auto) 84.2 H Lymph % (Auto) 7.4 L Lucas % (Auto) 6.6 Eos % (Auto) 1.4 Baso % (Auto) 0.4 Neut # (Auto) 8.7 H Lymph # (Auto) 0.8 Lucas # (Auto) 0.7 Eos # (Auto) 0.1 Baso # (Auto) 0.0 Sodium 143 Potassium 3.9 Chloride 108 H Carbon Dioxide 23 Anion Gap 15.9 BUN 18 H Creatinine 1.23 H Estimated Creat Clear 68 Est GFR ( Amer) > 60 Est GFR (Non-Af Amer) > 60 Glucose 176 H Calcium 9.1 Total Bilirubin 0.4 AST 26 ALT 19 Alkaline Phosphatase 78 NT-Pro-B Natriuret Pep 9863.4 H Total Protein 5.5 L Albumin 3.0 L Urine Color Urine Appearance Urine pH Ur Specific [place] Urine Protein Urine Ketones Urine Occult Blood Urine Nitrite Urine Bilirubin Urine Urobilinogen Ur Leukocyte Esterase Urine Glucose 04/21/19 15:30 WBC RBC Hgb Hct MCV MCH MCHC RDW Plt Count Neut % (Auto) Lymph % (Auto) Lucas % (Auto) Eos % (Auto) Baso % (Auto) Neut # (Auto) Lymph # (Auto) Lucas # (Auto) Eos # (Auto) Baso # (Auto) Sodium Potassium Chloride Carbon Dioxide Anion Gap BUN Creatinine Estimated Creat Clear Est GFR ( Amer) Est GFR (Non-Af Amer) Glucose Calcium Total Bilirubin AST ALT Alkaline Phosphatase NT-Pro-B Natriuret Pep Total Protein Albumin Urine Color Yellow Urine Appearance Clear Urine pH 7.0 Ur Specific [place] 1.015 Urine Protein Negative Urine Ketones Negative Urine Occult Blood Negative Urine Nitrite Negative Urine Bilirubin Negative Urine Urobilinogen 0.2 Ur Leukocyte Esterase Negative Urine Glucose Negative Assessment/Plan - Assessment/Plan (1) Generalized weakness Status: Acute Current Visit: Yes (2) Congestive heart failure Status: Chronic Current Visit: Yes Qualifiers: Heart failure type: unspecified Heart failure chronicity: acute on chronic Qualified Code(s): I50.9 - Heart failure, unspecified (3) Pedal edema Status: Chronic Current Visit: No Assessment: Improved some from previous discharge (4) Anticoagulant long-term use Status: Chronic Current Visit: No Assessment: stable, no complications noted (5) Atrial fibrillation Status: Chronic Current Visit: No Qualifiers: Atrial fibrillation type: chronic Qualified Code(s): I48.2 - Chronic atrial fibrillation (6) Diabetes type 2, controlled Status: Chronic Current Visit: No Qualifiers: Diabetes mellitus group home insulin use: with group home use Diabetes mellitus complication status: without complication Qualified Code(s): E11.9 - Type 2 diabetes mellitus without complications; Z79.4 - [facility] (current) use of insulin Assessment: stable (7) Iron deficiency anemia Status: Chronic Current Visit: No Qualifiers: Iron deficiency anemia type: other iron deficiency Qualified Code(s): D50.8 - Other iron deficiency anemias Assessment: stable from last admission (8) Rheumatoid arthritis Status: Chronic Current Visit: No Qualifiers: Rheumatoid arthritis location: multiple sites Rheumatoid factor presence: with rheumatoid factor Qualified Code(s): M05.79 - Rheumatoid arthritis with rheumatoid factor of multiple sites without organ or systems involvement Assessment: stable VTE Assessment - RISK FACTOR SCORE VTE RISK FACTOR SCORES: AGE OVER 60 YEARS, ANTICIPATED BED CONFINEMENT OR IMMOBILIZATION > 24 HOURS - RISK VTE MODERATE RISK: SCORE OF 2 (RISK PROXIMAL DVT 2-4%) PROPHYAXIS NEEDED (on xerelto)
[2019-04-21] MEDS: CARVEDILOL 12.5 MG TABLET PO SCH (21:00)
[2019-04-21] MEDS ORDERED: INSULIN GLARGINE,HUM.REC.ANLOG 100 UNIT/ML PEN.INJCTR SQ SCH (21:00)
[2019-04-21] MEDS ORDERED: DOCUSATE SODIUM 100 MG CAPSULE PO SCH (21:00)
[2019-04-21] MEDS: HYDROXYCHLOROQUINE 200 MG PO SCH (21:00)
[2019-04-22 05:58] LABS: BASOPHILS % 0.2 % (0.0-1.5); NEUTROPHILS # 7.1 # k/uL (1.4-7.7)
[2019-04-22 06:08] LABS: eGFR (Non-African) 42
[2019-04-22] MEDS: 0.9 % SODIUM CHLORIDE 1,000 ML IV SCH (06:15)
[2019-04-22] MEDS ORDERED: PANTOPRAZOLE SODIUM 40 MG TABLET.DR PO SCH (07:00)
--- NOTE | 2019-04-22 08:03 | Inpatient Progress Note ---
Subjective - Required Recertification Statement I anticipate X number of days because-include discharge plan: 1 day - Review of Systems Events since last encounter: Patient is about the same as yesterday. Still feel real weak. No confusion episodes noted. Breathing is about the same. Ate a moderate breakfast. General: Denies: Chills Cardiovascular: Denies: Chest Pain, Palpitations, Light Headedness Gastrointestinal: Denies: Nausea, Vomiting, Abdominal Pain Objective - Exam Vitals and I&O: Vital Signs Temp 97.7 F 04/22/19 06:00 Pulse 71 04/22/19 06:00 Resp 20 04/22/19 06:00 BP 108/61 04/22/19 06:00 Pulse Ox 96 04/22/19 06:00 Intake & Output 04/21/19 04/21/19 04/22/19 11:59 23:59 11:59 Intake Total 60 590 Output Total 600 1000 Balance -540 -410 Weight 86.183 kg 84.368 kg Intake: Oral 60 590 Output: Urine 600 1000 Other: Voiding Method Toilet # Bowel Movements 0 General: Alert, Oriented to Person, Oriented to Place, Oriented to Time, Cooperative Neck: Supple Lungs: Rales (few rales in the right base) Cardiovascular: Irregularly Irregular Abdomen: Normal bowel sounds, Soft, No tenderness - Results Results: Laboratory Results WBC 8.80 K/ul (4.00-12.00) 04/22/19 05:40 RBC 3.27 M/ul (3.90-5.20) L 04/22/19 05:40 Hgb 9.4 g/dL (11.5-16.0) L 04/22/19 05:40 Hct 28.8 % (34.5-46.5) L 04/22/19 05:40 MCV 88.0 fl (80.0-100.0) 04/22/19 05:40 MCH 28.7 pg (28.0-34.0) 04/22/19 05:40 MCHC 32.5 g/dL (30.0-36.0) 04/22/19 05:40 RDW 16.3 % (11.3-14.3) H 04/22/19 05:40 Plt Count 131 K/mm3 (130-400) 04/22/19 05:40 Neut % (Auto) 80.7 % (39.0-79.0) H 04/22/19 05:40 Lymph % (Auto) 9.7 % (16.0-50.0) L 04/22/19 05:40 [place] % (Auto) 8.1 % (0.0-11.0) 04/22/19 05:40 Eos % (Auto) 1.3 % (0.0-6.8) 04/22/19 05:40 Baso % (Auto) 0.2 % (0.0-1.5) 04/22/19 05:40 Neut # (Auto) 7.1 # k/uL (1.4-7.7) 04/22/19 05:40 Lymph # (Auto) 0.9 # k/uL (0.6-4.0) 04/22/19 05:40 [place] # (Auto) 0.7 # k/uL (0.0-0.9) 04/22/19 05:40 Eos # (Auto) 0.1 # k/uL (0.0-0.6) 04/22/19 05:40 Baso # (Auto) 0.0 # k/uL (0.0-0.5) 04/22/19 05:40 Sodium 142 mmol/L (137-145) 04/22/19 05:40 Potassium 3.7 mmol/L (3.5-5.1) 04/22/19 05:40 Chloride 108 mmol/L (98-107) H 04/22/19 05:40 Carbon Dioxide 24 mmol/L (22-30) 04/22/19 05:40 Anion Gap 13.7 04/22/19 05:40 BUN 18 mg/dL (7-17) H 04/22/19 05:40 Creatinine 1.31 mg/dL (0.52-1.04) H 04/22/19 05:40 Estimated Creat Clear 58 04/22/19 05:40 Est GFR ( Amer) > 60 (60-) 04/22/19 05:40 Est GFR (Non-Af Amer) 42 (60-) L 04/22/19 05:40 Glucose 85 mg/dL (74-106) 04/22/19 05:40 Calcium 8.7 mg/dL (8.4-10.2) 04/22/19 05:40 Total Bilirubin 0.3 mg/dL (0.2-1.3) 04/22/19 05:40 AST 59 U/L (15-46) H 04/22/19 05:40 ALT 13 U/L (13-69) 04/22/19 05:40 Alkaline Phosphatase 69 U/L (38-126) 04/22/19 05:40 NT-Pro-B Natriuret Pep 19937.0 pg/mL (11.1-450.0) H 04/22/19 05:40 Total Protein 5.3 g/dL (6.3-8.2) L 04/22/19 05:40 Albumin 2.7 g/dL (3.5-5.0) L 04/22/19 05:40 Urine Color Yellow (YELLOW) 04/21/19 15:30 Urine Appearance Clear (CLEAR) 04/21/19 15:30 Urine pH 7.0 (5.0 - 8.0) 04/21/19 15:30 Ur Specific [place] 1.015 (1.010-1.030) 04/21/19 15:30 Urine Protein Negative mg/dL (NEGATIVE) 04/21/19 15:30 Urine Ketones Negative mg/dL (NEGATIVE) 04/21/19 15:30 Urine Occult Blood Negative (NEGATIVE) 04/21/19 15:30 Urine Nitrite Negative (NEGATIVE) 04/21/19 15:30 Urine Bilirubin Negative (NEGATIVE) 04/21/19 15:30 Urine Urobilinogen 0.2 Eu (0.2-1.0) 04/21/19 15:30 Ur Leukocyte Esterase Negative (NEGATIVE) 04/21/19 15:30 Urine Glucose Negative mg/dL (NEGATIVE) 04/21/19 15:30 Assessment/Plan - Assessment/Plan (1) Generalized weakness Status: Acute Current Visit: Yes Assessment: Will get PT and OT evaluation for possible SNF admission (2) Congestive heart failure Status: Chronic Current Visit: Yes Qualifiers: Heart failure type: unspecified Heart failure chronicity: acute on chronic Qualified Code(s): I50.9 - Heart failure, unspecified Assessment: continue with slow diauresis (3) Pedal edema Status: Chronic Current Visit: No Assessment: improved some this AM (4) Anticoagulant long-term use Status: Chronic Current Visit: No Assessment: stable with no bleeding (5) Atrial fibrillation Status: Chronic Current Visit: No Qualifiers: Atrial fibrillation type: chronic Qualified Code(s): I48.2 - Chronic atrial fibrillation Assessment: no tachy or bradycardia noted (6) Diabetes type 2, controlled Status: Chronic Current Visit: No Qualifiers: Diabetes mellitus terminal computer operator insulin use: with terminal computer operator use Diabetes mellitus complication status: without complication Qualified Code(s): E11.9 - Type 2 diabetes mellitus without complications; Z79.4 - 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
[2019-04-22] MEDS: CARVEDILOL 12.5 MG TABLET PO SCH (08:30)
[2019-04-22] MEDS: HYDROXYCHLOROQUINE 200 MG PO SCH (08:30)
[2019-04-22 08:47] VITALS: BP 123/49
[2019-04-22] MEDS ORDERED: POTASSIUM CHLORIDE 10 MEQ TABLET.ER PO SCH (09:00)
[2019-04-22] MEDS ORDERED: CITALOPRAM HYDROBROMIDE 20 MG TABLET PO SCH (09:00)
[2019-04-22] MEDS ORDERED: metFORMIN HCl 500 MG TABLET PO SCH (09:00)
[2019-04-22] MEDS: FUROSEMIDE 20 MG/2 ML VIAL IVP SCH (11:37)
--- NOTE | 2019-04-22 14:09 | Diagnostic Imaging Report ---
IVAN BALLARD [facility] [address] [facility] [address] [place], [place]. [address] Report Submission Date: Apr 21, 2019 3:29:23 PM CDT Patient Study Name: TORRES IRVIN Date: Apr 21, 2019 2:51:20 PM CDT Modality Type: DX Gender: F Description: CHEST 1VIEW : 42 Institution: [facility] Physician: IVAN BALLARD HISTORY: 78-year-old female with weakness COMPARISON: Chest x-ray dated 02/27/2019. TECHNIQUE: Single portable AP view of the chest was performed. FINDINGS: No pneumothorax, consolidative infiltrates, or pulmonary edema. The heart is markedly enlarged. There is a left shoulder arthroplasty. There is thoracic degenerative disc disease and mild dextroscoliosis. IMPRESSION: Cardiomegaly without evidence of acute intrathoracic process. Electronically signed on Apr 21, 2019 3:29:23 PM CDT by: Sarwat NELSON
--- NOTE | 2019-04-22 14:10 | Diagnostic Imaging Report ---
IVAN BALLARD [facility] [address] [facility] [address] [place], [place]. [address] Report Submission Date: Apr 21, 2019 3:31:35 PM CDT Patient Study Name: TORRES IRVIN Date: Apr 21, 2019 3:02:19 PM CDT Modality Type: CT\SR Gender: F Description: CT BRAIN W/O CONTRAST : 42 Institution: [facility] Physician: IVAN BALLARD HISTORY: 78-year-old female with weakness. COMPARISON: None available. TECHNIQUE: Noncontrast axial CT images of the head were performed. Sagittal and coronal reformatted images were obtained. FINDINGS: There is mild global brain atrophy. There is mild decreased attenuation in the periventricular white matter. No intracranial hemorrhage, mass, midline shift, hydrocephalus, or evidence of acute large vessel infarct. There are postoperative changes of bilateral cataract extraction surgery. There is mild mucosal thickening in the maxillary sinuses. The mastoid air cells and middle ear spaces are clear. There is mild hyperostosis frontalis interna. IMPRESSION: 1. Global brain atrophy and chronic ischemic changes, without evidence of acute infarct or other acute intracranial process. 2. Mild bilateral maxillary sinus disease. Electronically signed on Apr 21, 2019 3:31:35 PM CDT by: Sarwat NELSON
--- NOTE | 2019-04-22 15:27 | Diagnostic Imaging Report ---
[facility] SURG [facility] [address] [address] [facility] [address] [place], [place]. [address] Report Submission Date: Apr 22, 2019 3:21:22 PM CDT Patient Study Name: TORRES IRVIN Date: Apr 22, 2019 2:53:56 PM CDT Modality Type: DX Gender: F Description: CHEST 2VIEW : 42 Institution: [facility] Physician: [facility]/MED SURG Exam: Chest two views. History: Heart failure. Weakness. The examination is compared to study dated April 21, 2019. Lung duncan are well aerated without miranda consolidation or effusion. Cardiomegaly is stable. An orthopedic device replaces the left shoulder joint. Degenerative changes in the right shoulder joint are noted. Impression: No interval change. Electronically signed on Apr 22, 2019 3:21:22 PM CDT by: Garrick NELSON
--- NOTE | 2019-04-23 09:29 | Discharge Summary ---
Discharge Summary - Discharge [facility] Admission Date: 04/21/19 (Acute) Discharge Date: 04/22/19 (SNF) Discharge To: Other ([facility]) History of Present Illness: Patient is a 78-year-old female who was recently admitted to [facility] for pneumonia. After a lengthy illness patient was admitted to [facility] for skilled services. Patient with discharged on April 10 with home health services.according to the patient and family members patient did well over the first week. However over the last 45 days patient is had progressing weakness that is described as being generalized. Patient has had episodes where she seemed to be confused with some possible slurred speech. Patient was not noted to have any focal neurological deficit associated with motor or sensory modalities. On the day of admission patient complained of some increasing shortness of breath and generalized weakness. Patient was not hardly able to ambulate. Patient was subsequently brought to the emergency room for evaluation. In the emergency room it was felt that the patient was having some congestive heart failure and patient was subsequently admitted to the hospital for further care and evaluation. Patient was seen by her television cable installer last week and was advised that everything looked stable. Patient did have an echocardiogram done at that time however her ejection fraction is not known. Previous echocardiogram showed an ejection fraction of 28%. Patient stated her peel edema has improved since she has been discharged. Patient denies any orthopnea symptoms. Patient is not had any chest pain or chest pressure. Patient stated she is not had any appetite and had not been eating well over the last week. Patient denies any specific reason why she had lost her appetite. As far as the family members no patient has been taking medication but there is some questions that she is been taken properly at the right time and the right dose. Condition at Discharge: Stable Home Medications: Ambulatory Orders Medication Instructions Recorded Acetaminophen with Codeine 1 - 2 each PO Q4 PRN 03/28/19 [Acetaminophen-Cod #3 Tablet] Albuterol Sulfate [Proair 2 puff INH Q6 PRN 03/28/19 Respiclick] Carvedilol [Coreg] 12.5 mg PO BID 03/28/19 Docusate Sodium [Colace] 200 mg PO HS 03/28/19 Ferrous Sulfate 325 mg PO BRKFST 03/28/19 Insulin Glargine,Hum.rec.anlog 14 unit SQ HS 03/28/19 [Lantus Solostar] Prednisone 2.5 mg PO AM 03/28/19 Acetazolamide [Diamox] 500 mg PO Q12 #30 tablet 04/11/19 Prednisone 5 mg PO DIRECTED #135 tab 04/11/19 Diltiazem HCl [Diltiazem 24Hr Cd] 1 tab PO DAILY 04/21/19 Hydroxychloroquine Sulfate 1 tab PO BID 04/21/19 [Plaquenil] Metformin HCl 500 mg PO DAILY 04/21/19 Potassium Chloride [Klor-Con M10] 1 tab PO DAILY 04/21/19 Rivaroxaban [Xarelto] 1 tab PO DAILY 04/21/19 Consultations this Visit: None Procedures this Visit: None Allergies/Adverse Reactions: Allergies Allergy/AdvReac Type Severity Reaction Status Date / Time chlorzoxazone Allergy Verified 04/21/19 15:07 levofloxacin [From Levaquin] Allergy Rash Verified 04/21/19 15:07 lisinopril Allergy Verified 04/21/19 15:07 propoxyphene napsylate Allergy Verified 04/21/19 15:07 tramadol AdvReac Vomiting Verified 04/21/19 15:07 Discharge Summary: Patient was started on IV Lasix. Patient had good diuresis and it appeared that her congestive heart failure was improved. However patient remained weak and was felt to be had an increase fall risk. Patient had the grass from the point where she was at when she with discharged from skilled 1 1/2 weeks ago. It was felt that she would benefit from further skilled theraapy and will be discharged to SNF. Patient other chronic medical problems remain stable. Patient diabetes was stable without any hyper hypoglycemic episodes. Rheumatoid arthritis remain stable without any increasing pain. Atrial fibrillation remains stable without any tachycardia or bradycardia. Patient remained on anticoagulation therapy. Patient with discharged in stable condition - Final Diagnosis (1) Generalized weakness Problems: (2) Congestive heart failure Problems: Improved (3) Pedal edema Problems: Improved (4) Anticoagulant long-term use Problems: (5) Atrial fibrillation Problems: stable (6) Diabetes type 2, controlled Problems: Stable (7) Iron deficiency anemia Problems: Stable (8) Rheumatoid arthritis Problems: Stable
== END 2019-04-22 12:00 | DRG 293 ==
LOC: ED 14:18 → SOUTH 15:57
PROVIDERS: ADMIT Family Medicine; ATTEND Family Medicine
DX: I11.0 Hypertensive heart disease with heart failure (principal); I50.9 Heart failure, unspecified; E11.9 Type 2 diabetes mellitus without complications; I48.2 Chronic atrial fibrillation; D50.8 Other iron deficiency anemias; M05.79 Rheumatoid arthritis with rheumatoid factor of multiple sites without organ or systems involvement; J44.9 Chronic obstructive pulmonary disease, unspecified; Z66 Do not resuscitate; G47.30 Sleep apnea, unspecified; F41.9 Anxiety disorder, unspecified; F32.9 Major depressive disorder, single episode, unspecified; G89.29 Other chronic pain; M54.5 Low back pain; R53.1 Weakness; M10.9 Gout, unspecified; Z87.01 Personal history of pneumonia (recurrent); Z79.899 Other long term (current) drug therapy; Z79.4 Long term (current) use of insulin; Z79.52 Long term (current) use of systemic steroids; Z88.1 Allergy status to other antibiotic agents; Z88.5 Allergy status to narcotic agent; Z88.8 Allergy status to other drugs, medicaments and biological substances; Z79.01 Long term (current) use of anticoagulants; Z91.81 History of falling; Z87.19 Personal history of other diseases of the digestive system; Z90.49 Acquired absence of other specified parts of digestive tract; Z90.710 Acquired absence of both cervix and uterus; Z96.652 Presence of left artificial knee joint; Z99.81 Dependence on supplemental oxygen
CPT/HCPCS: 51701; 70450; 71045; 71046; 80053; 81002; 83880; 85025; 93005; 97161; 97535; J1940; J7030; 99221

== ENCOUNTER 2019-04-22 12:01 | Inpatient (IN) | payer MEDICARE, OTHER ==
[2019-04-22] MEDS ORDERED: PREDNISONE 5 MG PO SCH (14:00)
--- NOTE | 2019-04-22 14:07 | History and Physical Report ---
History of Present Illnes - History of Present Illness Reason for Visit: Admission to SNF, [facility] weakness History of Present Illness: Patient is a 78-year-old female who was recently admitted to [facility] for pneumonia. After a lengthy illness patient was admitted to [facility] for skilled services. Patient with discharged on April 10 with home health services.according to the patient and family members patient did well over the first week. However over the last 45 days patient is had progressing weakness that is described as being generalized. Patient has had episodes where she seemed to be confused with some possible slurred speech. Patient was not noted to have any focal neurological deficit associated with motor or sensory modalities. On the day of admission patient complained of some increasing shortness of breath and generalized weakness. Patient was not hardly able to ambulate. Patient was subsequently brought to the emergency room for evaluation. In the emergency room it was felt that the patient was having some congestive heart failure and patient was subsequently admitted to the hospital for further care and evaluation. Patient was seen by her biological sciences professor last week and was advised that everything looked stable. Patient did have an echocardiogram done at that time however her ejection fraction is not known. Previous echocardiogram showed an ejection fraction of 28%. Patient stated her peel edema has improved since she has been discharged. Patient denies any orthopnea symptoms. Patient is not had any chest pain or chest pressure. Patient stated she is not had any appetite and had not been eating well over the last week. Patient denies any specific reason why she had lost her appetite. As far as the family members no patient has been taking medication but there is some questions that she is been taken properly at the right time and the right dose. - Past Medical History Cardiac: CHF, HTN Pulmonary: COPD (on home oxygen), Sleep Apnea (not able to tolerate CPAP) MASTER BAKER: Other (sleep apnea) Gastrointestinal: Other (esophagitis) Psych: Anxiety, Depression Musculoskeletal: Chronic low back pain Rheumatologic: Gout, Rheumatoid arthritis, Other (degenerative disc disease) Endocrine: Other (gout) - Past Surgical History Past Surgical History: Cholecystectomy, Hysterectomy, Total Knee Replacement (left), Other (shoulder surgery) - Past Family History Mother Family History: Cancer ( ALL), (40yo) Father Family History: Hypertension, (32yo from a heart condition) - Past Social History Smoke: No 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 negative: Fever, Chills, Sweats Eyes: negative: pain, vision change ENT: negative: Ear Pain, Ear Discharge, Nose Pain, Nose Discharge, Nose Congestion, Mouth Swelling, Throat Swelling Respiratory: SOB with Excertion. negative: Cough, Shortness of Breath, Hemoptysis, Wheezing Cardiovascular: negative: Chest Pain, Palpitations, Orthopnea, Paroxysmal Noc. Dyspnea Gastrointestinal: Constipation. negative: Nausea, Vomiting, Abdominal Pain, Diarrhea, Melena, Hematochezia Genitourinary: negative: Dysuria, Frequency, Incontinence, Hematuria Musculoskeletal: Neck Pain, Shoulder Pain, Back Pain Skin: negative: Rash Neurological: Weakness. negative: Numbness, Incoordination, Change in Speech, Confusion - Medications/Allergies Allergies/Adverse Reactions: Allergies Allergy/AdvReac Type Severity Reaction Status Date / Time chlorzoxazone Allergy Verified 04/21/19 15:07 levofloxacin [From Levaquin] Allergy Rash Verified 04/21/19 15:07 lisinopril Allergy Verified 04/21/19 15:07 propoxyphene napsylate Allergy Verified 04/21/19 15:07 tramadol AdvReac Vomiting Verified 04/21/19 15:07 Current Inpatient Medications: Current Inpatient Medications Acetaminophen/Codeine Phosphate (Tylenol #3) 1 - 2 each PO Q4 PRN PRN Reason: MILD PAIN OR TEMP > 101 Stop: 05/22/19 13:49 Carvedilol (Coreg) 12.5 mg PO BID YULIA Stop: 05/22/19 20:59 Cyanocobalamin (Vitamin B-12) 1,000 mcg SUBCUT MONTH YULIA Stop: 06/21/19 08:59 Diltiazem HCl (Cardizem Cd) 180 mg PO DAILY YULIA Stop: 05/23/19 08:59 Diltiazem HCl (Cardizem Cd) 120 mg PO DAILY YULIA Stop: 05/23/19 08:59 Docusate Sodium (Colace) 200 mg PO HS YULIA Stop: 05/22/19 20:59 Furosemide (Lasix) 20 mg PO DAILY YULIA Stop: 05/23/19 08:59 Hydroxychloroquine Sulfate (Plaquenil (Nf)) mg PO BID YULIA Stop: 05/22/19 20:59 Insulin Glargine (Basaglar Kwik-Pen) 14 unit SQ HS YULIA Stop: 05/22/19 20:59 Metformin HCl (Glucophage) 500 mg PO DAILY YULIA Stop: 05/23/19 08:59 Miscellaneous (Acetazolamide [Diamox]) 500 mg PO Q12 YULIA Stop: 05/22/19 20:59 Miscellaneous (Albuterol Sulfate [Proair Respiclick]) 2 puff INH Q6 PRN PRN Reason: Wheezing Miscellaneous (Cholecalciferol (Vitamin D3) [Vitamin D3]) 5,000 unit PO DAILY YULIA Stop: 05/23/19 08:59 Miscellaneous (Citalopram Hydrobromide [Citalopram Hbr]) 10 mg PO DAILY YULIA Stop: 05/23/19 08:59 Miscellaneous (Ferrous Sulfate [Ferrous Sulfate]) 325 mg PO BRKFST YULIA Stop: 05/23/19 07:59 Miscellaneous (Potassium Chloride [Klor-Con M10]) 1 tab PO DAILY YULIA Stop: 05/23/19 08:59 Miscellaneous (Prednisone [Prednisone]) 2.5 mg PO AM YULIA Stop: 05/23/19 08:59 Miscellaneous (Prednisone [Prednisone]) 5 mg PO DIRECTED YULIA Stop: 05/22/19 13:59 Miscellaneous (Rivaroxaban [Xarelto]) 1 tab PO DAILY YULIA Stop: 05/23/19 08:59 Pantoprazole Sodium (Protonix) 40 mg PO 0700 YULIA Stop: 05/23/19 06:59 Exam - Exam Vital Signs: Vital Signs (72 hours) 04/22/19 04/22/19 04/22/19 08:45 12:01 13:39 Temperature 97.6 F Pulse Rate [ 56 L Left Pulse ox] Respiratory 18 Rate Blood Pressure 123/49 Blood Pressure 123/49 108/61 [Left Arm] Blood Pressure 123/49 108/61 [Right Arm] O2 Sat by Pulse 99 Oximetry General: Alert, Oriented to Person, Oriented to Place, Oriented to Time, Cooperative HEENT: Atraumatic, PERRLA, EOMI, Mouth Mucous membr. moist/[place], Nose Mucous membr. moist/[place] Neck: Normal Range of Motion Carotids: Within normal limits Thyroid: within normal limits Lungs: Normal air movement, Speaks full Sentences, Rales (few rales right posterior) Cardiovascular: Regular rate, Normal S1, Normal S2, No murmurs Abdomen: Normal bowel sounds, Soft, No tenderness, No hepatospenomegaly, No masses Integumentary: Normal, [place], Warm, Dry Extremities: No clubbing, No cyanosis, No edema, Normal pulses, Other (2plus pedal edema) Neurological: Normal gait, Normal speech, Strength Equal Bilat, Normal tone, Sensation intact, Cranial nerves 3-12 NL, Reflexes 2+ Psych/Mental Status: Mental status NL, Mood NL, Appropriate Affect, Intact Judgment Assessment/Plan - Assessment/Plan (1) Anemia Status: Acute Current Visit: No Assessment: We will continue to monitor hemoglobin and hematocrit (2) Gait disturbance Status: Acute Current Visit: No Assessment: Patient will be started on physical and occupational therapy. It is hoped that she can return back home with home health therapy. (3) Congestive heart failure Status: Chronic Current Visit: No Qualifiers: Heart failure type: unspecified Heart failure chronicity: acute on chronic Qualified Code(s): I50.9 - Heart failure, unspecified Assessment: Appears to be stable at this time will continue with home medications. (4) Essential hypertension Status: Chronic Current Visit: No Assessment: Will continue home medications. (5) Pedal edema Status: Chronic Current Visit: No (6) Type 2 diabetes mellitus Status: Chronic Current Visit: No Qualifiers: Diabetes mellitus emt intermediate insulin use: without chcf use Diabetes mellitus complication status: without complication Qualified Code(s): E11.9 - Type 2 diabetes mellitus without complications Assessment: We will continue with home medications monitor patient blood sugars. (7) rheumatoid arthritis Status: Chronic Current Visit: No Assessment: Continue with home medications. VTE Assessment - RISK FACTOR SCORE VTE RISK FACTOR SCORES: AGE OVER 60 YEARS, CONGESTIVE HEART FAILURE OR MYOCARDIAL INFARCTION - RISK VTE MODERATE RISK: SCORE OF 2 (RISK PROXIMAL DVT 2-4%) PROPHYAXIS NEEDED (on antioagulation therapy DOAC)
[2019-04-22] MEDS ORDERED: ALBUTEROL 90MCG/PUFF INHALER IH PRN (15:00)
[2019-04-22] MEDS: RIVAROXABAN 10 MG TABLET PO SCH (16:51)
[2019-04-22] MEDS ORDERED: PANTOPRAZOLE SODIUM 40 MG TABLET.DR ONE (20:03)
[2019-04-22] MEDS: HYDROXYCHLOROQUINE 200 MG PO SCH (21:06)
[2019-04-22] MEDS: ACETAZOLAMIDE 500 MG PO SCH (21:06)
[2019-04-22] MEDS: DOCUSATE SODIUM 100 MG CAPSULE PO SCH (21:13)
[2019-04-22] MEDS: CARVEDILOL 12.5 MG TABLET PO SCH (21:13)
[2019-04-22] MEDS: ACETAMINOPHEN WITH CODEINE 300MG/30MG TABLET PO PRN (21:15)
[2019-04-22] MEDS: INSULIN GLARGINE,HUM.REC.ANLOG 100 UNIT/ML PEN.INJCTR SQ SCH (21:40)
[2019-04-23] MEDS: PANTOPRAZOLE SODIUM 40 MG TABLET.DR PO SCH (06:02)
[2019-04-23] MEDS: ACETAZOLAMIDE 500 MG PO SCH (08:23)
[2019-04-23] MEDS: metFORMIN HCl 500 MG TABLET PO SCH (08:24)
[2019-04-23] MEDS: FUROSEMIDE 20 MG TABLET PO SCH (08:25)
[2019-04-23] MEDS: CITALOPRAM HYDROBROMIDE 20 MG TABLET PO SCH (08:25)
[2019-04-23] MEDS: CARVEDILOL 12.5 MG TABLET PO SCH ×2 (08:27→20:39)
[2019-04-23] MEDS: CHOLECALCIFEROL (VIT-D3) 1,000 UNIT TABLET PO SCH (08:27)
[2019-04-23] MEDS: FERROUS SULFATE 325 MG TABLET PO SCH (08:27)
[2019-04-23] MEDS: POTASSIUM CHLORIDE 10 MEQ TABLET.ER PO SCH (08:27)
[2019-04-23] MEDS: HYDROXYCHLOROQUINE 200 MG PO SCH ×2 (08:28→20:39)
[2019-04-23] MEDS ORDERED: PREDNISONE 2.5 MG PO SCH (09:00)
[2019-04-23] MEDS ORDERED: predniSONE 1 MG TABLET PO SCH (11:00)
[2019-04-23] MEDS ORDERED: predniSONE 10 MG TABLET PO ONE (11:18)
[2019-04-23] MEDS: SENNOSIDES 8.6 MG TABLET PO SCH (11:23)
[2019-04-23] MEDS: RIVAROXABAN 10 MG TABLET PO SCH (17:04)
[2019-04-23] MEDS: DOCUSATE SODIUM 100 MG CAPSULE PO SCH (20:39)
[2019-04-23] MEDS: INSULIN GLARGINE,HUM.REC.ANLOG 100 UNIT/ML PEN.INJCTR SQ SCH (20:41)
[2019-04-23] MEDS: Non-Formulary 1 EACH PO SCH (20:41)
[2019-04-23] MEDS: ACETAMINOPHEN WITH CODEINE 300MG/30MG TABLET PO PRN (21:41)
[2019-04-23] MEDS: MELATONIN 3 MG TABLET PO SCH (21:42)
[2019-04-24] MEDS ORDERED: RED CRASH CART TAGS 1 EACH MC ONE ×2 (00:50)
[2019-04-24] MEDS: PANTOPRAZOLE SODIUM 40 MG TABLET.DR PO SCH (06:30)
[2019-04-24] MEDS: SENNOSIDES 8.6 MG TABLET PO SCH (08:16)
[2019-04-24] MEDS: metFORMIN HCl 500 MG TABLET PO SCH (08:16)
[2019-04-24] MEDS: FUROSEMIDE 20 MG TABLET PO SCH (08:16)
[2019-04-24] MEDS: POTASSIUM CHLORIDE 10 MEQ TABLET.ER PO SCH (08:17)
[2019-04-24] MEDS: predniSONE 10 MG TABLET PO SCH (08:17)
[2019-04-24] MEDS: CHOLECALCIFEROL (VIT-D3) 1,000 UNIT TABLET PO SCH ×2 (08:17→08:21)
[2019-04-24] MEDS: FERROUS SULFATE 325 MG TABLET PO SCH (08:17)
[2019-04-24] MEDS: CARVEDILOL 12.5 MG TABLET PO SCH ×2 (08:18→20:44)
[2019-04-24] MEDS: CITALOPRAM HYDROBROMIDE 20 MG TABLET PO SCH (08:19)
[2019-04-24] MEDS: Non-Formulary 1 EACH PO SCH ×2 (08:19→20:44)
[2019-04-24] MEDS: HYDROXYCHLOROQUINE 200 MG PO SCH ×2 (08:20→20:44)
[2019-04-24 12:24] VITALS: BMI 36.7
[2019-04-24] MEDS: RIVAROXABAN 10 MG TABLET PO SCH (16:58)
[2019-04-24] MEDS: DOCUSATE SODIUM 100 MG CAPSULE PO SCH (20:43)
[2019-04-24] MEDS: INSULIN GLARGINE,HUM.REC.ANLOG 100 UNIT/ML PEN.INJCTR SQ SCH (20:48)
[2019-04-24] MEDS: ACETAMINOPHEN WITH CODEINE 300MG/30MG TABLET PO PRN (22:07)
[2019-04-24] MEDS: MELATONIN 3 MG TABLET PO SCH (22:07)
[2019-04-25] MEDS: PANTOPRAZOLE SODIUM 40 MG TABLET.DR PO SCH (05:43)
[2019-04-25] MEDS: metFORMIN HCl 500 MG TABLET PO SCH (08:18)
[2019-04-25] MEDS: POTASSIUM CHLORIDE 10 MEQ TABLET.ER PO SCH (08:19)
[2019-04-25] MEDS: FERROUS SULFATE 325 MG TABLET PO SCH (08:19)
[2019-04-25] MEDS: FUROSEMIDE 20 MG TABLET PO SCH (08:20)
[2019-04-25] MEDS: SENNOSIDES 8.6 MG TABLET PO SCH (08:20)
[2019-04-25] MEDS: CARVEDILOL 12.5 MG TABLET PO SCH ×2 (08:21→20:40)
[2019-04-25] MEDS: CITALOPRAM HYDROBROMIDE 20 MG TABLET PO SCH (08:22)
[2019-04-25] MEDS: HYDROXYCHLOROQUINE 200 MG PO SCH ×2 (08:22→20:39)
[2019-04-25] MEDS: Non-Formulary 1 EACH PO SCH ×2 (08:23→20:38)
[2019-04-25] MEDS: predniSONE 10 MG TABLET PO SCH (08:25)
[2019-04-25] MEDS: CHOLECALCIFEROL (VIT-D3) 1,000 UNIT TABLET PO SCH ×2 (08:25→08:31)
[2019-04-25] MEDS ORDERED: BISACODYL 10 MG SUPP.RECT RC PRN (12:33)
[2019-04-25] MEDS: BISACODYL 5 MG TABLET.DR PO PRN (12:42)
[2019-04-25] MEDS: RIVAROXABAN 10 MG TABLET PO SCH (17:57)
[2019-04-25] MEDS: ACETAMINOPHEN WITH CODEINE 300MG/30MG TABLET PO PRN (20:39)
[2019-04-25] MEDS: MELATONIN 3 MG TABLET PO SCH (20:39)
[2019-04-25] MEDS: DOCUSATE SODIUM 100 MG CAPSULE PO SCH (20:40)
[2019-04-25] MEDS: INSULIN GLARGINE,HUM.REC.ANLOG 100 UNIT/ML PEN.INJCTR SQ SCH (20:59)
[2019-04-26] MEDS: PANTOPRAZOLE SODIUM 40 MG TABLET.DR PO SCH (05:49)
[2019-04-26 06:57] LABS: BASOPHILS % 0.4 % (0.0-1.5); NEUTROPHILS # 5.6 # k/uL (1.4-7.7)
[2019-04-26] MEDS: CARVEDILOL 12.5 MG TABLET PO SCH ×2 (08:48→21:08)
[2019-04-26] MEDS: metFORMIN HCl 500 MG TABLET PO SCH (08:49)
[2019-04-26] MEDS: HYDROXYCHLOROQUINE 200 MG PO SCH ×2 (08:49→21:07)
[2019-04-26] MEDS: FERROUS SULFATE 325 MG TABLET PO SCH (08:49)
[2019-04-26] MEDS: FUROSEMIDE 20 MG TABLET PO SCH (08:49)
[2019-04-26] MEDS: SENNOSIDES 8.6 MG TABLET PO SCH (08:50)
[2019-04-26] MEDS: POTASSIUM CHLORIDE 10 MEQ TABLET.ER PO SCH (08:50)
[2019-04-26] MEDS: CHOLECALCIFEROL (VIT-D3) 1,000 UNIT TABLET PO SCH (08:50)
[2019-04-26] MEDS: CITALOPRAM HYDROBROMIDE 20 MG TABLET PO SCH (08:51)
[2019-04-26] MEDS: predniSONE 10 MG TABLET PO SCH (08:52)
[2019-04-26] MEDS: Non-Formulary 1 EACH PO SCH (08:59)
[2019-04-26] MEDS: RIVAROXABAN 10 MG TABLET PO SCH (17:55)
[2019-04-26] MEDS: INSULIN GLARGINE,HUM.REC.ANLOG 100 UNIT/ML PEN.INJCTR SQ SCH (21:06)
[2019-04-26] MEDS: DOCUSATE SODIUM 100 MG CAPSULE PO SCH (21:07)
[2019-04-26] MEDS: MELATONIN 3 MG TABLET PO SCH (21:07)
[2019-04-26] MEDS: ACETAZOLAMIDE 250 MG PO SCH (21:32)
[2019-04-26] MEDS: ACETAMINOPHEN WITH CODEINE 300MG/30MG TABLET PO PRN (21:34)
[2019-04-27] MEDS: PANTOPRAZOLE SODIUM 40 MG TABLET.DR PO SCH (06:47)
[2019-04-27] MEDS: FERROUS SULFATE 325 MG TABLET PO SCH (08:29)
[2019-04-27] MEDS: CITALOPRAM HYDROBROMIDE 20 MG TABLET PO SCH (08:32)
[2019-04-27] MEDS: metFORMIN HCl 500 MG TABLET PO SCH (08:33)
[2019-04-27] MEDS: SENNOSIDES 8.6 MG TABLET PO SCH (08:33)
[2019-04-27] MEDS: POTASSIUM CHLORIDE 10 MEQ TABLET.ER PO SCH (08:33)
[2019-04-27] MEDS: HYDROXYCHLOROQUINE 200 MG PO SCH ×2 (08:33→20:48)
[2019-04-27] MEDS: ACETAZOLAMIDE 250 MG PO SCH ×2 (08:34→20:48)
[2019-04-27] MEDS: CARVEDILOL 12.5 MG TABLET PO SCH ×2 (08:34→20:47)
[2019-04-27] MEDS: FUROSEMIDE 20 MG TABLET PO SCH (08:35)
[2019-04-27] MEDS: CHOLECALCIFEROL (VIT-D3) 1,000 UNIT TABLET PO SCH (08:36)
[2019-04-27] MEDS: predniSONE 10 MG TABLET PO SCH (08:37)
[2019-04-27] MEDS: RIVAROXABAN 10 MG TABLET PO SCH (17:43)
[2019-04-27] MEDS: DOCUSATE SODIUM 100 MG CAPSULE PO SCH (20:47)
[2019-04-27] MEDS: MELATONIN 3 MG TABLET PO SCH (20:48)
[2019-04-27] MEDS: ACETAMINOPHEN WITH CODEINE 300MG/30MG TABLET PO PRN (20:50)
[2019-04-27] MEDS: INSULIN GLARGINE,HUM.REC.ANLOG 100 UNIT/ML PEN.INJCTR SQ SCH (20:50)
[2019-04-28] MEDS: PANTOPRAZOLE SODIUM 40 MG TABLET.DR PO SCH (06:44)
[2019-04-28] MEDS: HYDROXYCHLOROQUINE 200 MG PO SCH ×2 (08:04→20:38)
[2019-04-28] MEDS: CHOLECALCIFEROL (VIT-D3) 1,000 UNIT TABLET PO SCH (08:05)
[2019-04-28] MEDS: ACETAZOLAMIDE 250 MG PO SCH ×2 (08:06→20:38)
[2019-04-28] MEDS: SENNOSIDES 8.6 MG TABLET PO SCH (08:07)
[2019-04-28] MEDS: FUROSEMIDE 20 MG TABLET PO SCH (08:07)
[2019-04-28] MEDS: metFORMIN HCl 500 MG TABLET PO SCH (08:07)
[2019-04-28] MEDS: POTASSIUM CHLORIDE 10 MEQ TABLET.ER PO SCH (08:07)
[2019-04-28] MEDS: FERROUS SULFATE 325 MG TABLET PO SCH (08:08)
[2019-04-28] MEDS: CARVEDILOL 12.5 MG TABLET PO SCH ×2 (08:08→20:38)
[2019-04-28] MEDS: CITALOPRAM HYDROBROMIDE 20 MG TABLET PO SCH (08:09)
[2019-04-28] MEDS: predniSONE 10 MG TABLET PO SCH (08:09)
[2019-04-28] MEDS: RIVAROXABAN 10 MG TABLET PO SCH (17:42)
[2019-04-28] MEDS: INSULIN GLARGINE,HUM.REC.ANLOG 100 UNIT/ML PEN.INJCTR SQ SCH (20:35)
[2019-04-28] MEDS: DOCUSATE SODIUM 100 MG CAPSULE PO SCH (20:38)
[2019-04-28] MEDS: MELATONIN 3 MG TABLET PO SCH (20:38)
[2019-04-29] MEDS: PANTOPRAZOLE SODIUM 40 MG TABLET.DR PO SCH (06:02)
[2019-04-29] MEDS: CARVEDILOL 12.5 MG TABLET PO SCH ×2 (08:03→20:58)
[2019-04-29] MEDS: HYDROXYCHLOROQUINE 200 MG PO SCH ×2 (08:03→20:58)
[2019-04-29] MEDS: metFORMIN HCl 500 MG TABLET PO SCH (08:04)
[2019-04-29] MEDS: FERROUS SULFATE 325 MG TABLET PO SCH (08:04)
[2019-04-29] MEDS: POTASSIUM CHLORIDE 10 MEQ TABLET.ER PO SCH (08:04)
[2019-04-29] MEDS: CITALOPRAM HYDROBROMIDE 20 MG TABLET PO SCH (08:04)
[2019-04-29] MEDS: FUROSEMIDE 20 MG TABLET PO SCH (08:05)
[2019-04-29] MEDS: SENNOSIDES 8.6 MG TABLET PO SCH (08:05)
[2019-04-29] MEDS: predniSONE 10 MG TABLET PO SCH (08:05)
[2019-04-29] MEDS: CHOLECALCIFEROL (VIT-D3) 1,000 UNIT TABLET PO SCH (08:05)
[2019-04-29] MEDS: ACETAZOLAMIDE 250 MG PO SCH ×2 (08:06→20:57)
[2019-04-29] MEDS: RIVAROXABAN 10 MG TABLET PO SCH (18:01)
[2019-04-29] MEDS: MELATONIN 3 MG TABLET PO SCH (20:56)
[2019-04-29] MEDS: DOCUSATE SODIUM 100 MG CAPSULE PO SCH (20:57)
[2019-04-29] MEDS: ACETAMINOPHEN WITH CODEINE 300MG/30MG TABLET PO PRN (20:59)
[2019-04-30] MEDS: PANTOPRAZOLE SODIUM 40 MG TABLET.DR PO SCH (05:49)
[2019-04-30] MEDS: ACETAZOLAMIDE 250 MG PO SCH ×2 (09:07→21:57)
[2019-04-30] MEDS: CARVEDILOL 12.5 MG TABLET PO SCH ×2 (09:07→21:58)
[2019-04-30] MEDS: CITALOPRAM HYDROBROMIDE 20 MG TABLET PO SCH (09:08)
[2019-04-30] MEDS: FUROSEMIDE 20 MG TABLET PO SCH (09:09)
[2019-04-30] MEDS: POTASSIUM CHLORIDE 10 MEQ TABLET.ER PO SCH (09:09)
[2019-04-30] MEDS: CHOLECALCIFEROL (VIT-D3) 1,000 UNIT TABLET PO SCH (09:09)
[2019-04-30] MEDS: HYDROXYCHLOROQUINE 200 MG PO SCH ×2 (09:09→21:58)
[2019-04-30] MEDS: metFORMIN HCl 500 MG TABLET PO SCH (09:09)
[2019-04-30] MEDS: FERROUS SULFATE 325 MG TABLET PO SCH (09:09)
[2019-04-30] MEDS: SENNOSIDES 8.6 MG TABLET PO SCH (09:09)
[2019-04-30] MEDS: predniSONE 10 MG TABLET PO SCH (09:10)
[2019-04-30] MEDS: RIVAROXABAN 10 MG TABLET PO SCH (17:35)
[2019-04-30] MEDS: ACETAMINOPHEN WITH CODEINE 300MG/30MG TABLET PO PRN (21:56)
[2019-04-30] MEDS: DOCUSATE SODIUM 100 MG CAPSULE PO SCH (21:58)
[2019-04-30] MEDS: MELATONIN 3 MG TABLET PO SCH (21:58)
[2019-05-01] MEDS: PANTOPRAZOLE SODIUM 40 MG TABLET.DR PO SCH (05:56)
[2019-05-01] MEDS: ACETAZOLAMIDE 250 MG PO SCH ×2 (08:37→22:07)
[2019-05-01] MEDS: metFORMIN HCl 500 MG TABLET PO SCH (08:37)
[2019-05-01] MEDS: FERROUS SULFATE 325 MG TABLET PO SCH (08:37)
[2019-05-01] MEDS: HYDROXYCHLOROQUINE 200 MG PO SCH ×2 (08:37→22:07)
[2019-05-01] MEDS: CHOLECALCIFEROL (VIT-D3) 1,000 UNIT TABLET PO SCH (08:37)
[2019-05-01] MEDS: CITALOPRAM HYDROBROMIDE 20 MG TABLET PO SCH (08:37)
[2019-05-01] MEDS: FUROSEMIDE 20 MG TABLET PO SCH (08:38)
[2019-05-01] MEDS: POTASSIUM CHLORIDE 10 MEQ TABLET.ER PO SCH (08:38)
[2019-05-01] MEDS: SENNOSIDES 8.6 MG TABLET PO SCH (08:38)
[2019-05-01] MEDS: CARVEDILOL 12.5 MG TABLET PO SCH ×2 (08:38→22:07)
[2019-05-01] MEDS: predniSONE 10 MG TABLET PO SCH (08:38)
[2019-05-01] MEDS: RIVAROXABAN 10 MG TABLET PO SCH (17:05)
[2019-05-01] MEDS: INSULIN GLARGINE,HUM.REC.ANLOG 100 UNIT/ML PEN.INJCTR SQ SCH (22:06)
[2019-05-01] MEDS: ACETAMINOPHEN WITH CODEINE 300MG/30MG TABLET PO PRN (22:06)
[2019-05-01] MEDS: DOCUSATE SODIUM 100 MG CAPSULE PO SCH (22:07)
[2019-05-01] MEDS: MELATONIN 3 MG TABLET PO SCH (22:07)
[2019-05-02] MEDS: PANTOPRAZOLE SODIUM 40 MG TABLET.DR PO SCH (06:13)
[2019-05-02] MEDS: CHOLECALCIFEROL (VIT-D3) 1,000 UNIT TABLET PO SCH (08:48)
[2019-05-02] MEDS: predniSONE 10 MG TABLET PO SCH (08:48)
[2019-05-02] MEDS: ACETAZOLAMIDE 250 MG PO SCH ×2 (08:51→21:44)
[2019-05-02] MEDS: CARVEDILOL 12.5 MG TABLET PO SCH ×2 (08:51→21:43)
[2019-05-02] MEDS: CITALOPRAM HYDROBROMIDE 20 MG TABLET PO SCH (08:52)
[2019-05-02] MEDS: HYDROXYCHLOROQUINE 200 MG PO SCH ×2 (08:53→21:43)
[2019-05-02] MEDS: metFORMIN HCl 500 MG TABLET PO SCH (08:53)
[2019-05-02] MEDS: FERROUS SULFATE 325 MG TABLET PO SCH (08:53)
[2019-05-02] MEDS: SENNOSIDES 8.6 MG TABLET PO SCH (08:53)
[2019-05-02] MEDS: FUROSEMIDE 20 MG TABLET PO SCH (08:54)
[2019-05-02] MEDS: POTASSIUM CHLORIDE 10 MEQ TABLET.ER PO SCH (08:54)
[2019-05-02] MEDS: RIVAROXABAN 10 MG TABLET PO SCH (17:20)
[2019-05-02] MEDS: INSULIN GLARGINE,HUM.REC.ANLOG 100 UNIT/ML PEN.INJCTR SQ SCH (21:39)
[2019-05-02] MEDS: DOCUSATE SODIUM 100 MG CAPSULE PO SCH (21:42)
[2019-05-02] MEDS: MELATONIN 3 MG TABLET PO SCH (21:43)
[2019-05-03] MEDS: PANTOPRAZOLE SODIUM 40 MG TABLET.DR PO SCH (06:08)
[2019-05-03] MEDS: CITALOPRAM HYDROBROMIDE 20 MG TABLET PO SCH (08:49)
[2019-05-03] MEDS: CARVEDILOL 12.5 MG TABLET PO SCH ×2 (08:50→21:39)
[2019-05-03] MEDS: predniSONE 10 MG TABLET PO SCH (08:50)
[2019-05-03] MEDS: ACETAZOLAMIDE 250 MG PO SCH ×2 (08:51→21:39)
[2019-05-03] MEDS: POTASSIUM CHLORIDE 10 MEQ TABLET.ER PO SCH (08:52)
[2019-05-03] MEDS: SENNOSIDES 8.6 MG TABLET PO SCH (08:52)
[2019-05-03] MEDS: HYDROXYCHLOROQUINE 200 MG PO SCH ×2 (08:52→21:39)
[2019-05-03] MEDS: FUROSEMIDE 20 MG TABLET PO SCH (08:52)
[2019-05-03] MEDS: FERROUS SULFATE 325 MG TABLET PO SCH (08:52)
[2019-05-03] MEDS: CHOLECALCIFEROL (VIT-D3) 1,000 UNIT TABLET PO SCH (08:52)
[2019-05-03] MEDS: metFORMIN HCl 500 MG TABLET PO SCH (08:52)
[2019-05-03] MEDS: RIVAROXABAN 10 MG TABLET PO SCH (17:49)
[2019-05-03] MEDS: INSULIN GLARGINE,HUM.REC.ANLOG 100 UNIT/ML PEN.INJCTR SQ SCH (21:38)
[2019-05-03] MEDS: MELATONIN 3 MG TABLET PO SCH (21:39)
[2019-05-03] MEDS: DOCUSATE SODIUM 100 MG CAPSULE PO SCH ×2 (21:39→21:43)
[2019-05-03] MEDS: ACETAMINOPHEN WITH CODEINE 300MG/30MG TABLET PO PRN (21:47)
[2019-05-04] MEDS: PANTOPRAZOLE SODIUM 40 MG TABLET.DR PO SCH (06:15)
[2019-05-04] MEDS: metFORMIN HCl 500 MG TABLET PO SCH (09:09)
[2019-05-04] MEDS: CITALOPRAM HYDROBROMIDE 20 MG TABLET PO SCH (09:09)
[2019-05-04] MEDS: FUROSEMIDE 20 MG TABLET PO SCH (09:10)
[2019-05-04] MEDS: ACETAZOLAMIDE 250 MG PO SCH ×2 (09:10→22:05)
[2019-05-04] MEDS: FERROUS SULFATE 325 MG TABLET PO SCH (09:10)
[2019-05-04] MEDS: predniSONE 10 MG TABLET PO SCH (09:10)
[2019-05-04] MEDS: SENNOSIDES 8.6 MG TABLET PO SCH (09:11)
[2019-05-04] MEDS: CARVEDILOL 12.5 MG TABLET PO SCH ×2 (09:11→22:02)
[2019-05-04] MEDS: CHOLECALCIFEROL (VIT-D3) 1,000 UNIT TABLET PO SCH (09:11)
[2019-05-04] MEDS: HYDROXYCHLOROQUINE 200 MG PO SCH ×2 (09:11→22:02)
[2019-05-04] MEDS: POTASSIUM CHLORIDE 10 MEQ TABLET.ER PO SCH (09:11)
[2019-05-04] MEDS: RIVAROXABAN 10 MG TABLET PO SCH (18:40)
[2019-05-04] MEDS: MELATONIN 3 MG TABLET PO SCH (22:02)
[2019-05-04] MEDS: ACETAMINOPHEN WITH CODEINE 300MG/30MG TABLET PO PRN (22:03)
[2019-05-04] MEDS: DOCUSATE SODIUM 100 MG CAPSULE PO SCH (22:03)
[2019-05-04] MEDS: INSULIN GLARGINE,HUM.REC.ANLOG 100 UNIT/ML PEN.INJCTR SQ SCH (22:06)
[2019-05-05] MEDS: PANTOPRAZOLE SODIUM 40 MG TABLET.DR PO SCH (06:21)
[2019-05-05] MEDS: POTASSIUM CHLORIDE 10 MEQ TABLET.ER PO SCH (08:31)
[2019-05-05] MEDS: HYDROXYCHLOROQUINE 200 MG PO SCH ×2 (08:31→21:52)
[2019-05-05] MEDS: SENNOSIDES 8.6 MG TABLET PO SCH (08:31)
[2019-05-05] MEDS: CARVEDILOL 12.5 MG TABLET PO SCH ×2 (08:31→21:52)
[2019-05-05] MEDS: predniSONE 10 MG TABLET PO SCH (08:32)
[2019-05-05] MEDS: metFORMIN HCl 500 MG TABLET PO SCH (08:32)
[2019-05-05] MEDS: CHOLECALCIFEROL (VIT-D3) 1,000 UNIT TABLET PO SCH (08:32)
[2019-05-05] MEDS: FERROUS SULFATE 325 MG TABLET PO SCH (08:32)
[2019-05-05] MEDS: CITALOPRAM HYDROBROMIDE 20 MG TABLET PO SCH (08:33)
[2019-05-05] MEDS: FUROSEMIDE 20 MG TABLET PO SCH (08:33)
[2019-05-05] MEDS: ACETAZOLAMIDE 250 MG PO SCH ×2 (11:21→21:51)
[2019-05-05] MEDS: RIVAROXABAN 10 MG TABLET PO SCH (17:01)
[2019-05-05] MEDS: INSULIN GLARGINE,HUM.REC.ANLOG 100 UNIT/ML PEN.INJCTR SQ SCH (21:48)
[2019-05-05] MEDS: ACETAMINOPHEN WITH CODEINE 300MG/30MG TABLET PO PRN (21:50)
[2019-05-05] MEDS: MELATONIN 3 MG TABLET PO SCH (21:52)
[2019-05-05] MEDS: DOCUSATE SODIUM 100 MG CAPSULE PO SCH (21:52)
[2019-05-06] MEDS: PANTOPRAZOLE SODIUM 40 MG TABLET.DR PO SCH (06:24)
[2019-05-06] MEDS: CHOLECALCIFEROL (VIT-D3) 1,000 UNIT TABLET PO SCH (08:10)
[2019-05-06] MEDS: CARVEDILOL 12.5 MG TABLET PO SCH ×2 (08:11→21:47)
[2019-05-06] MEDS: FUROSEMIDE 20 MG TABLET PO SCH (08:12)
[2019-05-06] MEDS: ACETAZOLAMIDE 250 MG PO SCH ×2 (08:12→21:48)
[2019-05-06] MEDS: POTASSIUM CHLORIDE 10 MEQ TABLET.ER PO SCH (08:12)
[2019-05-06] MEDS: HYDROXYCHLOROQUINE 200 MG PO SCH ×2 (08:13→21:47)
[2019-05-06] MEDS: metFORMIN HCl 500 MG TABLET PO SCH (08:13)
[2019-05-06] MEDS: CITALOPRAM HYDROBROMIDE 20 MG TABLET PO SCH (08:13)
[2019-05-06] MEDS: predniSONE 10 MG TABLET PO SCH (08:14)
[2019-05-06] MEDS: SENNOSIDES 8.6 MG TABLET PO SCH (08:14)
[2019-05-06] MEDS: FERROUS SULFATE 325 MG TABLET PO SCH (08:17)
[2019-05-06] MEDS: RIVAROXABAN 10 MG TABLET PO SCH (17:16)
[2019-05-06] MEDS: MELATONIN 3 MG TABLET PO SCH (21:47)
[2019-05-06] MEDS: ACETAMINOPHEN WITH CODEINE 300MG/30MG TABLET PO PRN (21:47)
[2019-05-06] MEDS: DOCUSATE SODIUM 100 MG CAPSULE PO SCH (21:48)
[2019-05-06] MEDS: INSULIN GLARGINE,HUM.REC.ANLOG 100 UNIT/ML PEN.INJCTR SQ SCH (21:51)
[2019-05-07] MEDS: PANTOPRAZOLE SODIUM 40 MG TABLET.DR PO SCH (06:21)
[2019-05-07] MEDS: HYDROXYCHLOROQUINE 200 MG PO SCH ×2 (08:20→22:03)
[2019-05-07] MEDS: predniSONE 10 MG TABLET PO SCH (08:20)
[2019-05-07] MEDS: ACETAZOLAMIDE 250 MG PO SCH ×2 (08:20→22:02)
[2019-05-07] MEDS: CITALOPRAM HYDROBROMIDE 20 MG TABLET PO SCH (08:21)
[2019-05-07] MEDS: FERROUS SULFATE 325 MG TABLET PO SCH (08:22)
[2019-05-07] MEDS: metFORMIN HCl 500 MG TABLET PO SCH (08:22)
[2019-05-07] MEDS: CARVEDILOL 12.5 MG TABLET PO SCH ×2 (08:22→22:03)
[2019-05-07] MEDS: POTASSIUM CHLORIDE 10 MEQ TABLET.ER PO SCH (08:23)
[2019-05-07] MEDS: CHOLECALCIFEROL (VIT-D3) 1,000 UNIT TABLET PO SCH (08:23)
[2019-05-07] MEDS: FUROSEMIDE 20 MG TABLET PO SCH (08:23)
[2019-05-07] MEDS: SENNOSIDES 8.6 MG TABLET PO SCH (08:23)
[2019-05-07] MEDS: RIVAROXABAN 10 MG TABLET PO SCH (17:25)
[2019-05-07] MEDS: ACETAMINOPHEN WITH CODEINE 300MG/30MG TABLET PO PRN (22:02)
[2019-05-07] MEDS: DOCUSATE SODIUM 100 MG CAPSULE PO SCH (22:02)
[2019-05-07] MEDS: MELATONIN 3 MG TABLET PO SCH (22:02)
[2019-05-07] MEDS: INSULIN GLARGINE,HUM.REC.ANLOG 100 UNIT/ML PEN.INJCTR SQ SCH (22:05)
[2019-05-08] MEDS: PANTOPRAZOLE SODIUM 40 MG TABLET.DR PO SCH (06:05)
[2019-05-08] MEDS: FERROUS SULFATE 325 MG TABLET PO SCH (09:16)
[2019-05-08] MEDS: FUROSEMIDE 20 MG TABLET PO SCH (09:16)
[2019-05-08] MEDS: CITALOPRAM HYDROBROMIDE 20 MG TABLET PO SCH (09:16)
[2019-05-08] MEDS: SENNOSIDES 8.6 MG TABLET PO SCH (09:17)
[2019-05-08] MEDS: CARVEDILOL 12.5 MG TABLET PO SCH ×2 (09:18→21:58)
[2019-05-08] MEDS: HYDROXYCHLOROQUINE 200 MG PO SCH ×2 (09:18→21:58)
[2019-05-08] MEDS: metFORMIN HCl 500 MG TABLET PO SCH (09:19)
[2019-05-08] MEDS: predniSONE 10 MG TABLET PO SCH (09:19)
[2019-05-08] MEDS: POTASSIUM CHLORIDE 10 MEQ TABLET.ER PO SCH (09:20)
[2019-05-08] MEDS: CHOLECALCIFEROL (VIT-D3) 1,000 UNIT TABLET PO SCH (09:20)
[2019-05-08] MEDS: ACETAZOLAMIDE 250 MG PO SCH ×2 (09:22→21:58)
[2019-05-08] MEDS: RIVAROXABAN 10 MG TABLET PO SCH (17:06)
[2019-05-08] MEDS: ACETAMINOPHEN WITH CODEINE 300MG/30MG TABLET PO PRN (21:57)
[2019-05-08] MEDS: DOCUSATE SODIUM 100 MG CAPSULE PO SCH (21:57)
[2019-05-08] MEDS: MELATONIN 3 MG TABLET PO SCH (21:58)
[2019-05-08] MEDS: INSULIN GLARGINE,HUM.REC.ANLOG 100 UNIT/ML PEN.INJCTR SQ SCH (21:59)
[2019-05-09] MEDS: PANTOPRAZOLE SODIUM 40 MG TABLET.DR PO SCH (06:16)
[2019-05-09] MEDS: SENNOSIDES 8.6 MG TABLET PO SCH (08:26)
[2019-05-09] MEDS: FERROUS SULFATE 325 MG TABLET PO SCH (08:26)
[2019-05-09] MEDS: CITALOPRAM HYDROBROMIDE 20 MG TABLET PO SCH (08:26)
[2019-05-09] MEDS: metFORMIN HCl 500 MG TABLET PO SCH (08:26)
[2019-05-09] MEDS: FUROSEMIDE 20 MG TABLET PO SCH (08:27)
[2019-05-09] MEDS: CHOLECALCIFEROL (VIT-D3) 1,000 UNIT TABLET PO SCH (08:27)
[2019-05-09] MEDS: HYDROXYCHLOROQUINE 200 MG PO SCH ×2 (08:27→21:45)
[2019-05-09] MEDS: POTASSIUM CHLORIDE 10 MEQ TABLET.ER PO SCH (08:27)
[2019-05-09] MEDS: ACETAZOLAMIDE 250 MG PO SCH ×2 (08:28→21:45)
[2019-05-09] MEDS: BISACODYL 5 MG TABLET.DR PO PRN (08:28)
[2019-05-09] MEDS: predniSONE 10 MG TABLET PO SCH (08:28)
[2019-05-09] MEDS: CARVEDILOL 12.5 MG TABLET PO SCH ×2 (08:28→21:45)
[2019-05-09] MEDS: RIVAROXABAN 10 MG TABLET PO SCH (17:24)
[2019-05-09] MEDS: DOCUSATE SODIUM 100 MG CAPSULE PO SCH (21:45)
[2019-05-09] MEDS: MELATONIN 3 MG TABLET PO SCH (21:46)
[2019-05-09] MEDS: ACETAMINOPHEN WITH CODEINE 300MG/30MG TABLET PO PRN (21:46)
[2019-05-09] MEDS: INSULIN GLARGINE,HUM.REC.ANLOG 100 UNIT/ML PEN.INJCTR SQ SCH (21:49)
[2019-05-10] MEDS: PANTOPRAZOLE SODIUM 40 MG TABLET.DR PO SCH (05:53)
[2019-05-10] MEDS: POTASSIUM CHLORIDE 10 MEQ TABLET.ER PO SCH (10:15)
[2019-05-10] MEDS: ACETAZOLAMIDE 250 MG PO SCH ×2 (10:15→20:11)
[2019-05-10] MEDS: CARVEDILOL 12.5 MG TABLET PO SCH ×2 (10:15→20:11)
[2019-05-10] MEDS: FERROUS SULFATE 325 MG TABLET PO SCH (10:15)
[2019-05-10] MEDS: CITALOPRAM HYDROBROMIDE 20 MG TABLET PO SCH (10:16)
[2019-05-10] MEDS: metFORMIN HCl 500 MG TABLET PO SCH (10:18)
[2019-05-10] MEDS: SENNOSIDES 8.6 MG TABLET PO SCH (10:18)
[2019-05-10] MEDS: HYDROXYCHLOROQUINE 200 MG PO SCH ×2 (10:18→20:11)
[2019-05-10] MEDS: FUROSEMIDE 20 MG TABLET PO SCH (10:18)
[2019-05-10] MEDS: predniSONE 10 MG TABLET PO SCH (10:18)
[2019-05-10] MEDS: CHOLECALCIFEROL (VIT-D3) 1,000 UNIT TABLET PO SCH (10:19)
[2019-05-10] MEDS: RIVAROXABAN 10 MG TABLET PO SCH (17:01)
[2019-05-10] MEDS: DOCUSATE SODIUM 100 MG CAPSULE PO SCH (20:11)
[2019-05-10] MEDS: ACETAMINOPHEN WITH CODEINE 300MG/30MG TABLET PO PRN (22:28)
[2019-05-10] MEDS: MELATONIN 3 MG TABLET PO SCH (22:29)
[2019-05-10] MEDS: INSULIN GLARGINE,HUM.REC.ANLOG 100 UNIT/ML PEN.INJCTR SQ SCH (22:32)
[2019-05-11] MEDS: PANTOPRAZOLE SODIUM 40 MG TABLET.DR PO SCH (06:34)
[2019-05-11] MEDS: ACETAZOLAMIDE 250 MG PO SCH ×2 (10:12→21:55)
[2019-05-11] MEDS: CHOLECALCIFEROL (VIT-D3) 1,000 UNIT TABLET PO SCH (10:12)
[2019-05-11] MEDS: CITALOPRAM HYDROBROMIDE 20 MG TABLET PO SCH (10:12)
[2019-05-11] MEDS: metFORMIN HCl 500 MG TABLET PO SCH (10:13)
[2019-05-11] MEDS: HYDROXYCHLOROQUINE 200 MG PO SCH ×2 (10:13→21:56)
[2019-05-11] MEDS: predniSONE 10 MG TABLET PO SCH (10:13)
[2019-05-11] MEDS: SENNOSIDES 8.6 MG TABLET PO SCH (10:13)
[2019-05-11] MEDS: FERROUS SULFATE 325 MG TABLET PO SCH (10:13)
[2019-05-11] MEDS: CARVEDILOL 12.5 MG TABLET PO SCH ×2 (10:14→21:56)
[2019-05-11] MEDS: POTASSIUM CHLORIDE 10 MEQ TABLET.ER PO SCH (10:14)
[2019-05-11] MEDS: FUROSEMIDE 20 MG TABLET PO SCH (10:15)
[2019-05-11] MEDS: RIVAROXABAN 10 MG TABLET PO SCH (18:02)
[2019-05-11] MEDS: DOCUSATE SODIUM 100 MG CAPSULE PO SCH (21:55)
[2019-05-11] MEDS: ACETAMINOPHEN WITH CODEINE 300MG/30MG TABLET PO PRN (21:56)
[2019-05-11] MEDS: MELATONIN 3 MG TABLET PO SCH (21:56)
[2019-05-11] MEDS: INSULIN GLARGINE,HUM.REC.ANLOG 100 UNIT/ML PEN.INJCTR SQ SCH (21:58)
[2019-05-12] MEDS: PANTOPRAZOLE SODIUM 40 MG TABLET.DR PO SCH (05:50)
[2019-05-12] MEDS: HYDROXYCHLOROQUINE 200 MG PO SCH ×2 (08:27→21:58)
[2019-05-12] MEDS: metFORMIN HCl 500 MG TABLET PO SCH (08:28)
[2019-05-12] MEDS: CITALOPRAM HYDROBROMIDE 20 MG TABLET PO SCH (08:28)
[2019-05-12] MEDS: SENNOSIDES 8.6 MG TABLET PO SCH (08:28)
[2019-05-12] MEDS: FERROUS SULFATE 325 MG TABLET PO SCH (08:28)
[2019-05-12] MEDS: CHOLECALCIFEROL (VIT-D3) 1,000 UNIT TABLET PO SCH (08:28)
[2019-05-12] MEDS: FUROSEMIDE 20 MG TABLET PO SCH (08:28)
[2019-05-12] MEDS: POTASSIUM CHLORIDE 10 MEQ TABLET.ER PO SCH (08:28)
[2019-05-12] MEDS: predniSONE 10 MG TABLET PO SCH (08:29)
[2019-05-12] MEDS: CARVEDILOL 12.5 MG TABLET PO SCH ×2 (08:29→21:58)
[2019-05-12] MEDS: ACETAZOLAMIDE 250 MG PO SCH ×2 (08:29→21:57)
[2019-05-12] MEDS: RIVAROXABAN 10 MG TABLET PO SCH (17:45)
[2019-05-12] MEDS: DOCUSATE SODIUM 100 MG CAPSULE PO SCH (21:57)
[2019-05-12] MEDS: ACETAMINOPHEN WITH CODEINE 300MG/30MG TABLET PO PRN (21:57)
[2019-05-12] MEDS: MELATONIN 3 MG TABLET PO SCH (21:58)
[2019-05-12] MEDS: INSULIN GLARGINE,HUM.REC.ANLOG 100 UNIT/ML PEN.INJCTR SQ SCH (22:03)
[2019-05-13] MEDS: PANTOPRAZOLE SODIUM 40 MG TABLET.DR PO SCH (05:55)
[2019-05-13] MEDS: metFORMIN HCl 500 MG TABLET PO SCH ×2 (09:29→09:30)
[2019-05-13] MEDS: ACETAZOLAMIDE 250 MG PO SCH ×2 (09:30→22:31)
[2019-05-13] MEDS: HYDROXYCHLOROQUINE 200 MG PO SCH ×2 (09:30→22:33)
[2019-05-13] MEDS: POTASSIUM CHLORIDE 10 MEQ TABLET.ER PO SCH (09:30)
[2019-05-13] MEDS: FUROSEMIDE 20 MG TABLET PO SCH (09:30)
[2019-05-13] MEDS: predniSONE 10 MG TABLET PO SCH (09:30)
[2019-05-13] MEDS: CHOLECALCIFEROL (VIT-D3) 1,000 UNIT TABLET PO SCH (09:31)
[2019-05-13] MEDS: SENNOSIDES 8.6 MG TABLET PO SCH (09:32)
[2019-05-13] MEDS: CITALOPRAM HYDROBROMIDE 20 MG TABLET PO SCH (09:32)
[2019-05-13] MEDS: FERROUS SULFATE 325 MG TABLET PO SCH (09:32)
[2019-05-13] MEDS: CARVEDILOL 12.5 MG TABLET PO SCH ×2 (09:32→22:33)
[2019-05-13] MEDS: RIVAROXABAN 10 MG TABLET PO SCH (17:02)
--- NOTE | 2019-05-13 17:15 | Inpatient Progress Note ---
Subjective - Required Recertification Statement I anticipate X number of days because-include discharge plan: Continued - Review of Systems Events since last encounter: Received phone call earlier in the day that patient had a bright pink rash to the lower back. No complaints of itching or burning. At 17:14 faint rash on lower back- RN states it has greatly improved. will recheck in the a.m. - possible heat/sweat rash General: Denies: Chills, Night Sweats HEENT: Denies: Head Aches, Dysphasia Pulmonary: Denies: Dyspnea, Cough Cardiovascular: Denies: Chest Pain Gastrointestinal: Denies: Nausea, Vomiting, Abdominal Pain Neurological: Weakness Objective - Exam Vitals and I&O: Vital Signs Temp 97.4 F L 05/13/19 09:00 Pulse 62 05/13/19 09:00 Resp 92 H 05/13/19 09:00 BP 143/78 05/13/19 09:00 Pulse Ox 96 05/13/19 09:00 Intake & Output 05/12/19 05/13/19 05/13/19 23:59 11:59 23:59 Intake Total 1020 360 240 Balance 1020 360 240 Weight 84.822 kg Intake: Oral 1020 360 240 Other: Voiding Method Toilet Toilet # Voids 4 # Bowel Movements 0 General: Alert, Oriented to Person, Oriented to Place, Oriented to Time, [place] rative, No acute distress, Obese HEENT: Atraumatic, Mouth Mucous membr. moist/[place], Nose Mucous membr. moist/[place] Neck: Supple, +2 carotid pulse wo bruit Lungs: Clear to auscultation, Normal air movement, Speaks full Sentences Cardiovascular: Regular rate, Normal S1, Normal S2 Abdomen: Normal bowel sounds, Soft Extremities: Normal pulses Skin: Normal, [place], Warm, Dry, Rash (very light pink in color; denies any itching or burning) Neurological: Generalized Weakness Psych/Mental Status: Mental status NL, Mood NL, Appropriate Affect, Intact Judgment - Results Results: Laboratory Results WBC 7.50 K/ul (4.00-12.00) 04/26/19 06:40 RBC 3.20 M/ul (3.90-5.20) L 04/26/19 06:40 Hgb 9.1 g/dL (11.5-16.0) L 04/26/19 06:40 Hct 28.0 % (34.5-46.5) L 04/26/19 06:40 MCV 87.0 fl (80.0-100.0) 04/26/19 06:40 MCH 28.5 pg (28.0-34.0) 04/26/19 06:40 MCHC 32.7 g/dL (30.0-36.0) 04/26/19 06:40 RDW 16.0 % (11.3-14.3) H 04/26/19 06:40 Plt Count 145 K/mm3 (130-400) 04/26/19 06:40 Neut % (Auto) 74.3 % (39.0-79.0) 04/26/19 06:40 Lymph % (Auto) 15.6 % (16.0-50.0) L 04/26/19 06:40 [place] % (Auto) 7.9 % (0.0-11.0) 04/26/19 06:40 Eos % (Auto) 1.8 % (0.0-6.8) 04/26/19 06:40 Baso % (Auto) 0.4 % (0.0-1.5) 04/26/19 06:40 Neut # (Auto) 5.6 # k/uL (1.4-7.7) 04/26/19 06:40 Lymph # (Auto) 1.2 # k/uL (0.6-4.0) 04/26/19 06:40 [place] # (Auto) 0.6 # k/uL (0.0-0.9) 04/26/19 06:40 Eos # (Auto) 0.1 # k/uL (0.0-0.6) 04/26/19 06:40 Baso # (Auto) 0.0 # k/uL (0.0-0.5) 04/26/19 06:40 Sodium 141 mmol/L (137-145) 04/26/19 06:40 Potassium 3.7 mmol/L (3.5-5.1) 04/26/19 06:40 Chloride 106 mmol/L (98-107) 04/26/19 06:40 Carbon Dioxide 26 mmol/L (22-30) 04/26/19 06:40 Anion Gap 12.7 04/26/19 06:40 BUN 22 mg/dL (7-17) H 04/26/19 06:40 Creatinine 1.57 mg/dL (0.52-1.04) H 04/26/19 06:40 Estimated Creat Clear 48 04/26/19 06:40 Est GFR ( Amer) 41 (60-) L 04/26/19 06:40 Est GFR (Non-Af Amer) 34 (60-) L 04/26/19 06:40 Glucose 96 mg/dL (74-106) 04/26/19 06:40 Calcium 8.9 mg/dL (8.4-10.2) 04/26/19 06:40 Total Bilirubin 0.2 mg/dL (0.2-1.3) 04/26/19 06:40 AST 30 U/L (15-46) 04/26/19 06:40 ALT 12 U/L (13-69) L 04/26/19 06:40 Alkaline Phosphatase 73 U/L (38-126) 04/26/19 06:40 Total Protein 5.3 g/dL (6.3-8.2) L 04/26/19 06:40 Albumin 2.9 g/dL (3.5-5.0) L 04/26/19 06:40 Assessment/Plan - Assessment/Plan (1) Heat rash Status: Acute Current Visit: Yes Assessment: light pink rash to lower back; possibly from heat and sweat; nursing states it has greatly improved from when she initially got out of bed. Plan: Will continue to monitor
[2019-05-13] MEDS: ACETAMINOPHEN WITH CODEINE 300MG/30MG TABLET PO PRN (22:31)
[2019-05-13] MEDS: MELATONIN 3 MG TABLET PO SCH (22:32)
[2019-05-13] MEDS: DOCUSATE SODIUM 100 MG CAPSULE PO SCH (22:34)
[2019-05-13] MEDS: INSULIN GLARGINE,HUM.REC.ANLOG 100 UNIT/ML PEN.INJCTR SQ SCH (22:37)
[2019-05-14] MEDS: PANTOPRAZOLE SODIUM 40 MG TABLET.DR PO SCH (06:30)
[2019-05-14] MEDS: SENNOSIDES 8.6 MG TABLET PO SCH (09:44)
[2019-05-14] MEDS: FUROSEMIDE 20 MG TABLET PO SCH (09:44)
[2019-05-14] MEDS: HYDROXYCHLOROQUINE 200 MG PO SCH ×2 (09:44→22:26)
[2019-05-14] MEDS: ACETAZOLAMIDE 250 MG PO SCH ×2 (09:44→22:25)
[2019-05-14] MEDS: predniSONE 10 MG TABLET PO SCH (09:45)
[2019-05-14] MEDS: CHOLECALCIFEROL (VIT-D3) 1,000 UNIT TABLET PO SCH (09:46)
[2019-05-14] MEDS: POTASSIUM CHLORIDE 10 MEQ TABLET.ER PO SCH (09:47)
[2019-05-14] MEDS: CITALOPRAM HYDROBROMIDE 20 MG TABLET PO SCH (09:47)
[2019-05-14] MEDS: FERROUS SULFATE 325 MG TABLET PO SCH (09:47)
[2019-05-14] MEDS: CARVEDILOL 12.5 MG TABLET PO SCH ×2 (09:47→22:26)
[2019-05-14] MEDS: RIVAROXABAN 10 MG TABLET PO SCH (17:05)
[2019-05-14] MEDS: ACETAMINOPHEN WITH CODEINE 300MG/30MG TABLET PO PRN (22:24)
[2019-05-14] MEDS: DOCUSATE SODIUM 100 MG CAPSULE PO SCH (22:26)
[2019-05-14] MEDS: INSULIN GLARGINE,HUM.REC.ANLOG 100 UNIT/ML PEN.INJCTR SQ SCH (22:26)
[2019-05-14] MEDS: MELATONIN 3 MG TABLET PO SCH (22:26)
[2019-05-15] MEDS: PANTOPRAZOLE SODIUM 40 MG TABLET.DR PO SCH (05:59)
[2019-05-15] MEDS: CITALOPRAM HYDROBROMIDE 20 MG TABLET PO SCH (09:09)
[2019-05-15] MEDS: metFORMIN HCl 500 MG TABLET PO SCH (09:09)
[2019-05-15] MEDS: BISACODYL 5 MG TABLET.DR PO PRN (09:10)
[2019-05-15] MEDS: predniSONE 10 MG TABLET PO SCH (09:10)
[2019-05-15] MEDS: FERROUS SULFATE 325 MG TABLET PO SCH (09:10)
[2019-05-15] MEDS: ACETAZOLAMIDE 250 MG PO SCH ×2 (09:12→21:52)
[2019-05-15] MEDS: HYDROXYCHLOROQUINE 200 MG PO SCH ×2 (09:13→21:54)
[2019-05-15] MEDS: CHOLECALCIFEROL (VIT-D3) 1,000 UNIT TABLET PO SCH (09:13)
[2019-05-15] MEDS: POTASSIUM CHLORIDE 10 MEQ TABLET.ER PO SCH (09:13)
[2019-05-15] MEDS: CARVEDILOL 12.5 MG TABLET PO SCH ×2 (09:13→21:53)
[2019-05-15] MEDS: FUROSEMIDE 20 MG TABLET PO SCH (09:13)
[2019-05-15] MEDS: SENNOSIDES 8.6 MG TABLET PO SCH (09:13)
[2019-05-15] MEDS: RIVAROXABAN 10 MG TABLET PO SCH (17:57)
[2019-05-15] MEDS: ACETAMINOPHEN WITH CODEINE 300MG/30MG TABLET PO PRN (21:52)
[2019-05-15] MEDS: INSULIN GLARGINE,HUM.REC.ANLOG 100 UNIT/ML PEN.INJCTR SQ SCH (21:53)
[2019-05-15] MEDS: DOCUSATE SODIUM 100 MG CAPSULE PO SCH (21:54)
[2019-05-15] MEDS: MELATONIN 3 MG TABLET PO SCH (21:54)
[2019-05-16] MEDS: PANTOPRAZOLE SODIUM 40 MG TABLET.DR PO SCH (05:30)
[2019-05-16] MEDS: FUROSEMIDE 20 MG TABLET PO SCH (08:47)
[2019-05-16] MEDS: SENNOSIDES 8.6 MG TABLET PO SCH (08:47)
[2019-05-16] MEDS: POTASSIUM CHLORIDE 10 MEQ TABLET.ER PO SCH (08:47)
[2019-05-16] MEDS: FERROUS SULFATE 325 MG TABLET PO SCH (08:47)
[2019-05-16] MEDS: CHOLECALCIFEROL (VIT-D3) 1,000 UNIT TABLET PO SCH (08:48)
[2019-05-16] MEDS: metFORMIN HCl 500 MG TABLET PO SCH (08:48)
[2019-05-16] MEDS: ACETAZOLAMIDE 250 MG PO SCH ×2 (08:48→21:57)
[2019-05-16] MEDS: CITALOPRAM HYDROBROMIDE 20 MG TABLET PO SCH (08:48)
[2019-05-16] MEDS: predniSONE 10 MG TABLET PO SCH (08:48)
[2019-05-16] MEDS: HYDROXYCHLOROQUINE 200 MG PO SCH ×2 (08:48→21:57)
[2019-05-16] MEDS: CARVEDILOL 12.5 MG TABLET PO SCH ×2 (08:53→21:57)
[2019-05-16] MEDS: RIVAROXABAN 10 MG TABLET PO SCH (17:51)
[2019-05-16] MEDS: MELATONIN 3 MG TABLET PO SCH (21:57)
[2019-05-16] MEDS: DOCUSATE SODIUM 100 MG CAPSULE PO SCH (21:57)
[2019-05-16] MEDS: ACETAMINOPHEN WITH CODEINE 300MG/30MG TABLET PO PRN (21:58)
[2019-05-16] MEDS: INSULIN GLARGINE,HUM.REC.ANLOG 100 UNIT/ML PEN.INJCTR SQ SCH (22:01)
[2019-05-17] MEDS: PANTOPRAZOLE SODIUM 40 MG TABLET.DR PO SCH (06:07)
[2019-05-17] MEDS: ACETAZOLAMIDE 250 MG PO SCH ×2 (09:01→21:51)
[2019-05-17] MEDS: CITALOPRAM HYDROBROMIDE 20 MG TABLET PO SCH (09:01)
[2019-05-17] MEDS: CARVEDILOL 12.5 MG TABLET PO SCH ×2 (09:01→21:51)
[2019-05-17] MEDS: predniSONE 10 MG TABLET PO SCH (09:01)
[2019-05-17] MEDS: metFORMIN HCl 500 MG TABLET PO SCH (09:02)
[2019-05-17] MEDS: FUROSEMIDE 20 MG TABLET PO SCH (09:02)
[2019-05-17] MEDS: POTASSIUM CHLORIDE 10 MEQ TABLET.ER PO SCH (09:02)
[2019-05-17] MEDS: FERROUS SULFATE 325 MG TABLET PO SCH (09:02)
[2019-05-17] MEDS: SENNOSIDES 8.6 MG TABLET PO SCH (09:03)
[2019-05-17] MEDS: HYDROXYCHLOROQUINE 200 MG PO SCH ×2 (09:03→21:51)
[2019-05-17] MEDS: CHOLECALCIFEROL (VIT-D3) 1,000 UNIT TABLET PO SCH (09:03)
[2019-05-17] MEDS: RIVAROXABAN 10 MG TABLET PO SCH (18:30)
[2019-05-17] MEDS: DOCUSATE SODIUM 100 MG CAPSULE PO SCH (21:51)
[2019-05-17] MEDS: ACETAMINOPHEN WITH CODEINE 300MG/30MG TABLET PO PRN (21:51)
[2019-05-17] MEDS: MELATONIN 3 MG TABLET PO SCH (21:53)
[2019-05-17] MEDS: INSULIN GLARGINE,HUM.REC.ANLOG 100 UNIT/ML PEN.INJCTR SQ SCH (21:55)
[2019-05-18] MEDS: PANTOPRAZOLE SODIUM 40 MG TABLET.DR PO SCH (05:41)
[2019-05-18] MEDS: CHOLECALCIFEROL (VIT-D3) 1,000 UNIT TABLET PO SCH (08:37)
[2019-05-18] MEDS: CARVEDILOL 12.5 MG TABLET PO SCH (08:37)
[2019-05-18] MEDS: metFORMIN HCl 500 MG TABLET PO SCH (08:37)
[2019-05-18] MEDS: predniSONE 10 MG TABLET PO SCH (08:37)
[2019-05-18] MEDS: HYDROXYCHLOROQUINE 200 MG PO SCH (08:37)
[2019-05-18] MEDS: ACETAZOLAMIDE 250 MG PO SCH (08:39)
[2019-05-18] MEDS: SENNOSIDES 8.6 MG TABLET PO SCH (08:39)
[2019-05-18] MEDS: FUROSEMIDE 20 MG TABLET PO SCH (08:39)
[2019-05-18] MEDS: POTASSIUM CHLORIDE 10 MEQ TABLET.ER PO SCH (08:39)
[2019-05-18] MEDS: CITALOPRAM HYDROBROMIDE 20 MG TABLET PO SCH (08:39)
[2019-05-18] MEDS: FERROUS SULFATE 325 MG TABLET PO SCH (08:40)
[2019-05-18 08:48] VITALS: BP 131/69
--- NOTE | 2019-05-18 10:42 | Discharge Summary ---
Discharge Summary - Discharge [facility] Admission Date: 04/22/19 (SNF) Discharge Date: 05/18/19 (home) Discharge To: Home, Home Health History of Present Illness: Patient is a 78-year-old female who was recently admitted to [facility] for pneumonia. After a lengthy illness patient was admitted to [facility] for skilled services. Patient with discharged on April 10 with home health services.according to the patient and family members patient did well over the first week. However over the last 45 days patient is had progressing weakness that is described as being generalized. Patient has had episodes where she seemed to be confused with some possible slurred speech. Patient was not noted to have any focal neurological deficit associated with motor or sensory modalities. On the day of admission patient complained of some increasing shortness of breath and generalized weakness. Patient was not hardly able to ambulate. Patient was subsequently brought to the emergency room for evaluation. In the emergency room it was felt that the patient was having some congestive heart failure and patient was subsequently admitted to the hospital for further care and evaluation. Patient was seen by her scrap hooker last week and was advised that everything looked stable. Patient did have an echocardiogram done at that time however her ejection fraction is not known. Previous echocardiogram showed an ejection fraction of 28%. Patient stated her peel edema has improved since she has been discharged. Patient denies any orthopnea symptoms. Patient is not had any chest pain or chest pressure. Patient stated she is not had any appetite and had not been eating well over the last week. Patient denies any specific reason why she had lost her appetite. As far as the family members no patient has been taking medication but there is some questions that she is been taken properly at the right time and the right dose. Condition at Discharge: Stable Home Medications: Ambulatory Orders Medication Instructions Recorded Acetaminophen with Codeine 1 - 2 each PO Q4 PRN 03/28/19 [Acetaminophen-Cod #3 Tablet] Albuterol Sulfate [Proair 2 puff INH Q6 PRN 03/28/19 Respiclick] Carvedilol [Coreg] 12.5 mg PO BID 03/28/19 Docusate Sodium [Colace] 200 mg PO HS 03/28/19 Ferrous Sulfate 325 mg PO BRKFST 03/28/19 Prednisone 2.5 mg PO AM 03/28/19 Prednisone 5 mg PO DIRECTED #135 tab 04/11/19 Diltiazem HCl [Diltiazem 24Hr Cd] 1 tab PO DAILY 04/21/19 Hydroxychloroquine Sulfate 1 tab PO BID 04/21/19 [Plaquenil] Metformin HCl 500 mg PO DAILY 04/21/19 Potassium Chloride [Klor-Con M10] 1 tab PO DAILY 04/21/19 Rivaroxaban [Xarelto] 1 tab PO DAILY 04/21/19 Pantoprazole Sodium [Protonix] 40 mg PO 0700 tablet. 05/18/19 acetaZOLAMIDE (NF) [Diamox] 500 mg PO Q12 tablet 05/18/19 predniSONE [Deltasone] 7.5 mg PO AM tablet 05/18/19 Consultations this Visit: None Procedures this Visit: None Allergies/Adverse Reactions: Allergies Allergy/AdvReac Type Severity Reaction Status Date / Time chlorzoxazone Allergy Verified 04/21/19 15:07 levofloxacin [From Levaquin] Allergy Rash Verified 04/21/19 15:07 lisinopril Allergy Verified 04/21/19 15:07 propoxyphene napsylate Allergy Verified 04/21/19 15:07 tramadol AdvReac Vomiting Verified 04/21/19 15:07 Discharge Summary: Patient did well with participating with her physical and occupational therapy. Patient ability to ambulate and transfer safely improve during her SNF stay. Patient chronic kidney disease remains stable with a creatinine of 1.57. Patient anemia did improve to a hemoglobin of 9.1. Patient other chronic medical problems remain stable. At the time of dismissal was felt that the patient was stable enough that she could be discharged home with home health. Patient with discharged in stable condition. - Final Diagnosis (1) Gait disturbance Problems: improved (2) Anemia Problems: improved from discharge from [place] (3) Congestive heart failure Problems: stable (4) Essential hypertension Problems: stable (5) Pedal edema Problems: improved (6) Type 2 diabetes mellitus Problems: stable (7) rheumatoid arthritis Problems: stable
[2019-05-22] MEDS ORDERED: CYANOCOBALAMIN 1,000 MCG/ML VIAL SUBCUT SCH (09:00)
--- NOTE | 2019-07-09 09:05 | Inpatient Progress Note ---
Subjective - Required Recertification Statement I anticipate X number of days because-include discharge plan: 21 day - Review of Systems Subjective: Patient seem to be doing well at this time. Patient voices no complaints. Pain is well controlled. Appetite is improving. Patient seem to be doing well with physical and occupational therapy. Objective - Exam Vitals and I&O: Vital Signs Temp 97.3 F L 05/18/19 08:45 Pulse 80 05/18/19 08:45 Resp 18 05/18/19 08:45 BP 131/69 05/18/19 08:45 Pulse Ox 100 05/18/19 08:45 General: Alert, Oriented to Person, Oriented to Place, Cooperative Neck: Supple Lungs: Clear to auscultation Cardiovascular: Regular rate Abdomen: Normal bowel sounds - Results Results: Laboratory Results WBC 7.50 K/ul (4.00-12.00) 04/26/19 06:40 RBC 3.20 M/ul (3.90-5.20) L 04/26/19 06:40 Hgb 9.1 g/dL (11.5-16.0) L 04/26/19 06:40 Hct 28.0 % (34.5-46.5) L 04/26/19 06:40 MCV 87.0 fl (80.0-100.0) 04/26/19 06:40 MCH 28.5 pg (28.0-34.0) 04/26/19 06:40 MCHC 32.7 g/dL (30.0-36.0) 04/26/19 06:40 RDW 16.0 % (11.3-14.3) H 04/26/19 06:40 Plt Count 145 K/mm3 (130-400) 04/26/19 06:40 Neut % (Auto) 74.3 % (39.0-79.0) 04/26/19 06:40 Lymph % (Auto) 15.6 % (16.0-50.0) L 04/26/19 06:40 [place] % (Auto) 7.9 % (0.0-11.0) 04/26/19 06:40 Eos % (Auto) 1.8 % (0.0-6.8) 04/26/19 06:40 Baso % (Auto) 0.4 % (0.0-1.5) 04/26/19 06:40 Neut # (Auto) 5.6 # k/uL (1.4-7.7) 04/26/19 06:40 Lymph # (Auto) 1.2 # k/uL (0.6-4.0) 04/26/19 06:40 [place] # (Auto) 0.6 # k/uL (0.0-0.9) 04/26/19 06:40 Eos # (Auto) 0.1 # k/uL (0.0-0.6) 04/26/19 06:40 Baso # (Auto) 0.0 # k/uL (0.0-0.5) 04/26/19 06:40 Sodium 141 mmol/L (137-145) 04/26/19 06:40 Potassium 3.7 mmol/L (3.5-5.1) 04/26/19 06:40 Chloride 106 mmol/L (98-107) 04/26/19 06:40 Carbon Dioxide 26 mmol/L (22-30) 04/26/19 06:40 Anion Gap 12.7 04/26/19 06:40 BUN 22 mg/dL (7-17) H 04/26/19 06:40 Creatinine 1.57 mg/dL (0.52-1.04) H 04/26/19 06:40 Estimated Creat Clear 48 04/26/19 06:40 Est GFR ( Amer) 41 (60-) L 04/26/19 06:40 Est GFR (Non-Af Amer) 34 (60-) L 04/26/19 06:40 Glucose 96 mg/dL (74-106) 04/26/19 06:40 Calcium 8.9 mg/dL (8.4-10.2) 04/26/19 06:40 Total Bilirubin 0.2 mg/dL (0.2-1.3) 04/26/19 06:40 AST 30 U/L (15-46) 04/26/19 06:40 ALT 12 U/L (13-69) L 04/26/19 06:40 Alkaline Phosphatase 73 U/L (38-126) 04/26/19 06:40 Total Protein 5.3 g/dL (6.3-8.2) L 04/26/19 06:40 Albumin 2.9 g/dL (3.5-5.0) L 04/26/19 06:40 Assessment/Plan - Assessment/Plan (1) Gait disturbance Status: Acute Assessment: Improving (2) Congestive heart failure Status: Chronic Qualifiers: Heart failure type: unspecified Heart failure chronicity: acute on chronic Qualified Code(s): I50.9 - Heart failure, unspecified (3) Essential hypertension Status: Chronic Assessment: Stable on home medications. (4) Pedal edema Status: Chronic Assessment: Improved (5) Type 2 diabetes mellitus Status: Chronic Qualifiers: Diabetes mellitus rn long term care insulin use: without rn long term care use Diabetes mellitus complication status: without complication Qualified Code(s): E11.9 - Type 2 diabetes mellitus without complications Assessment: Stable on home medications. (6) rheumatoid arthritis Status: Chronic Assessment: Stable on home medications.
--- NOTE | 2019-07-09 09:07 | Inpatient Progress Note ---
Subjective - Required Recertification Statement I anticipate X number of days because-include discharge plan: 2 weeks - Review of Systems Events since last encounter: Patient continues to do well and is progressing with her physical and occupational therapy. Patient stated she does feel like she is making improvement with her ability to ambulate and transfer. Patient diabetes mellitus has been stable. Patient is not had any chest pain or chest pressure. Congestive heart failure hypertension has been stable. Subjective: Patient seem to be doing well at this time. Patient voices no complaints. Pain is well controlled. Appetite is improving. Patient seem to be doing well with physical and occupational therapy. Objective - Exam Vitals and I&O: Vital Signs Temp 97.3 F L 05/18/19 08:45 Pulse 80 05/18/19 08:45 Resp 18 05/18/19 08:45 BP 131/69 05/18/19 08:45 Pulse Ox 100 05/18/19 08:45 General: Alert, Oriented to Person, Oriented to Place, Oriented to Time, Cooperative, No acute distress Neck: Supple Lungs: Clear to auscultation, Normal air movement Cardiovascular: Regular rate, Normal S1, Normal S2 Extremities: No clubbing, No cyanosis, No edema Neurological: Normal gait, Normal speech Psych/Mental Status: Mental status NL, Mood NL, Appropriate Affect, Intact Judgment - Results Results: Laboratory Results WBC 7.50 K/ul (4.00-12.00) 04/26/19 06:40 RBC 3.20 M/ul (3.90-5.20) L 04/26/19 06:40 Hgb 9.1 g/dL (11.5-16.0) L 04/26/19 06:40 Hct 28.0 % (34.5-46.5) L 04/26/19 06:40 MCV 87.0 fl (80.0-100.0) 04/26/19 06:40 MCH 28.5 pg (28.0-34.0) 04/26/19 06:40 MCHC 32.7 g/dL (30.0-36.0) 04/26/19 06:40 RDW 16.0 % (11.3-14.3) H 04/26/19 06:40 Plt Count 145 K/mm3 (130-400) 04/26/19 06:40 Neut % (Auto) 74.3 % (39.0-79.0) 04/26/19 06:40 Lymph % (Auto) 15.6 % (16.0-50.0) L 04/26/19 06:40 [place] % (Auto) 7.9 % (0.0-11.0) 04/26/19 06:40 Eos % (Auto) 1.8 % (0.0-6.8) 04/26/19 06:40 Baso % (Auto) 0.4 % (0.0-1.5) 04/26/19 06:40 Neut # (Auto) 5.6 # k/uL (1.4-7.7) 04/26/19 06:40 Lymph # (Auto) 1.2 # k/uL (0.6-4.0) 04/26/19 06:40 [place] # (Auto) 0.6 # k/uL (0.0-0.9) 04/26/19 06:40 Eos # (Auto) 0.1 # k/uL (0.0-0.6) 04/26/19 06:40 Baso # (Auto) 0.0 # k/uL (0.0-0.5) 04/26/19 06:40 Sodium 141 mmol/L (137-145) 04/26/19 06:40 Potassium 3.7 mmol/L (3.5-5.1) 04/26/19 06:40 Chloride 106 mmol/L (98-107) 04/26/19 06:40 Carbon Dioxide 26 mmol/L (22-30) 04/26/19 06:40 Anion Gap 12.7 04/26/19 06:40 BUN 22 mg/dL (7-17) H 04/26/19 06:40 Creatinine 1.57 mg/dL (0.52-1.04) H 04/26/19 06:40 Estimated Creat Clear 48 04/26/19 06:40 Est GFR ( Amer) 41 (60-) L 04/26/19 06:40 Est GFR (Non-Af Amer) 34 (60-) L 04/26/19 06:40 Glucose 96 mg/dL (74-106) 04/26/19 06:40 Calcium 8.9 mg/dL (8.4-10.2) 04/26/19 06:40 Total Bilirubin 0.2 mg/dL (0.2-1.3) 04/26/19 06:40 AST 30 U/L (15-46) 04/26/19 06:40 ALT 12 U/L (13-69) L 04/26/19 06:40 Alkaline Phosphatase 73 U/L (38-126) 04/26/19 06:40 Total Protein 5.3 g/dL (6.3-8.2) L 04/26/19 06:40 Albumin 2.9 g/dL (3.5-5.0) L 04/26/19 06:40 Assessment/Plan - Assessment/Plan (1) Gait disturbance Status: Acute Assessment: Patient continues to improve well. (2) Congestive heart failure Status: Chronic Qualifiers: Heart failure type: unspecified Heart failure chronicity: acute on chronic Qualified Code(s): I50.9 - Heart failure, unspecified Assessment: Stable (3) Essential hypertension Status: Chronic Assessment: Stable (4) Pedal edema Status: Chronic (5) Type 2 diabetes mellitus Status: Chronic Qualifiers: Diabetes mellitus residential insulin use: without residential use Diabetes mellitus complication status: without complication Qualified Code(s): E11.9 - Type 2 diabetes mellitus without complications Assessment: Stable (6) rheumatoid arthritis Status: Chronic Assessment: Stable
== END 2019-05-18 10:15 | disposition home or self-care (01) | DRG 92 ==
LOC: SOUTH 12:01
PROVIDERS: ADMIT Family Medicine; ATTEND Family Medicine
DX: R26.9 Unspecified abnormalities of gait and mobility (principal); I13.0 Hypertensive heart and chronic kidney disease with heart failure and stage 1 through stage 4 chronic kidney disease, or unspecified chronic kidney disease; I50.9 Heart failure, unspecified; E11.22 Type 2 diabetes mellitus with diabetic chronic kidney disease; J44.9 Chronic obstructive pulmonary disease, unspecified; G47.30 Sleep apnea, unspecified; R53.1 Weakness; F41.9 Anxiety disorder, unspecified; F32.9 Major depressive disorder, single episode, unspecified; G89.29 Other chronic pain; M54.5 Low back pain; M10.9 Gout, unspecified; L74.0 Miliaria rubra; M06.9 Rheumatoid arthritis, unspecified; D63.1 Anemia in chronic kidney disease; N18.9 Chronic kidney disease, unspecified; Z99.81 Dependence on supplemental oxygen; Z90.49 Acquired absence of other specified parts of digestive tract; Z90.710 Acquired absence of both cervix and uterus; Z96.652 Presence of left artificial knee joint; Z88.1 Allergy status to other antibiotic agents; Z88.5 Allergy status to narcotic agent; Z88.8 Allergy status to other drugs, medicaments and biological substances; Z79.899 Other long term (current) drug therapy; Z79.52 Long term (current) use of systemic steroids; Z79.84 Long term (current) use of oral hypoglycemic drugs; Z79.01 Long term (current) use of anticoagulants
CPT/HCPCS: 80053; 85025; 97110; 97112; 97116; 97161; 97165; 97530; 97535; J7512; 99221; 99231; 99238

== ENCOUNTER 2019-05-31 14:40 | Outpatient (CLI) | payer MEDICARE, OTHER ==
[2019-06-09 09:24] LABS: eGFR (Non-African) > 60
--- NOTE | 2019-06-15 10:18 | Diagnostic Imaging Report ---
NEDRA JIMENEZ [facility] [address] [address] Report Submission Date: May 31, 2019 3:15:57 PM CDT Patient Study Name: TORRES IRVIN Date: May 31, 2019 2:39:01 PM CDT Modality Type: DX Gender: F Description: CHEST 2VIEW : 44 Institution: [facility] Physician: NEDRA JIMENEZ CHEST 2 VIEWS CLINICAL INDICATION: ORDER STATES DYSPNEA ABOUT 1 WEEK (Hx) / Note time : 05/31/2019 2:54:46 PM User : Sumit Case ORDER STATES DYSPNEA ABOUT 1 WEEK (DICOM Hx) (DICOM Hx) FINDINGS: 2 views of the chest compared to April 22, 2019 shows low lung volumes bilaterally. There is mild pulmonary vascular congestion. Left basilar pleural effusion is present. There is cardiomegaly. Left shoulder prosthesis is present. IMPRESSION: pulmonary vascular congestion with left pleural effusion Cardiomegaly Electronically signed on May 31, 2019 3:15:57 PM CDT by: Andrew NELSON
== END 2019-05-31 14:50 ==
LOC: LAB 14:40
PROVIDERS: ATTEND Family Medicine
DX: R06.00 Dyspnea, unspecified (principal)
CPT/HCPCS: 36415; 71020; 71046; 80053; 83880

== ENCOUNTER 2019-06-08 11:42 | Outpatient (CLI) | payer MEDICARE, OTHER ==
--- NOTE | 2019-06-08 12:57 | Diagnostic Imaging Report ---
PATIENT MR#: [id number] PATIENT PATIENT NAME: TORRES IRVIN DATE OF : 1940 REFERRING PHYSICIAN: Yoshi Huerta EXAM DATE: 06/08/2019 ACCESSION NUMBER: [id number] EXAM DESCRIPTION: CHEST 2VIEW Exam: Chest two views. History: Shortness of breath. The examination is compared to study dated May 31, 2019. Persistent perihilar infiltrates are noted. Increase in left basilar atelectasis and pleural effusio ns are noted. Heart size is normal with atherosclerotic plaques seen in the aorta. An orthopedic device replaces t he left shoulder joint. Impression: Persistent perihilar infiltrates. Increase in left basilar atelectasis and pleural effusion. Read by: Dr. Garrick Kirby Transcribed by: Transcribed Date: Electronically signed by: Dr. Garrick Kirby Date signed: 06/08/2019 12:56:34 PM
== END 2019-06-08 11:52 | disposition home or self-care (01) ==
LOC: RAD 11:42
PROVIDERS: ATTEND Family Medicine
DX: R06.00 Dyspnea, unspecified (principal)
CPT/HCPCS: 71046